=== PATIENT | female | born 1970 | race Hispanic/Latino ===

== ENCOUNTER 2017-08-17 12:16 | Emergency (ER) | payer OTHER ==
[~2017-08-17] VITALS: Ht 152.4 cm; Wt 136.1 kg
[~2017-08-17 12:16] MED LIST: LISINOPRIL20 MG PO; MEDROXYPROGESTE10 MG PO; NAPROXEN375 M1 PO
--- NOTE | 2017-08-17 13:09 | Diagnostic Imaging Report ---
Exam: Head CT without contrast History: Weakness on left side. Evaluate for CVA Comparison studies: None Technique: Axial images were obtained from the skull base to the vertex. Coronal and sagittal images reconstructed from the axial data. Intravenous contrast: None Findings: Scalp: No abnormalities. Bones: No fractures, blastic or lytic lesions. Brain sulci: Appropriate for age. Ventricles: Normal in size and configuration. No hydrocephalus. Extra-axial spaces: No masses, no fluid collection. Parenchyma: No abnormal densities. No masses, acute hemorrhage, or acute or chronic cortical vascular insults. Sellar/suprasellar region: Partially CSF filled sella, a nonspecific finding which may be of no clinical significance if in the absence of clinical symptoms to suggest idiopathic intracranial hypertension or abnormalities referrable to the hypothalamic-pituitary axis. Craniocervical junction: Patent foramen magnum. No Chiari one malformation. IMPRESSION: 1. No acute abnormalities. 2. Specifically, no mass, acute hemorrhage or acute cortical vascular insults. Brain MRI may further evaluate if there remains persistent concern for acute ischemia. Signed by: Dr. Justice Vines M.D. on 08/17/2017 1:06 PM
[2017-08-17 13:42] LABS: BASOPHILS % 0.2 % (0.0-1.0); EOSINOPHILS # (AUTO) 0.2 (0.0-0.4); EOSINOPHILS % 1.9 % (0.0-6.0); HEMATOCRIT 41.6 % (34.2-44.1); HEMOGLOBIN 14.1 g/dL (12.0-16.0); LYMPHOCYTES # (AUTO) 3.4 (1.0-3.2); LYMPHOCYTES % 40.5 % (18.0-39.1); MEAN CORPUSCULAR HEMOGLOBIN 29.4 pg (28-32); MEAN CORPUSCULAR HGB CONC 33.9 g/dL (31-35); MEAN CORPUSCULAR VOLUME 86.8 fL (81-99); MONOCYTES # (AUTO) 0.4 (0.2-0.8); MONOCYTES % 5.2 % (4.4-11.3); NEUTROPHILS # (AUTO) 4.4 (2.1-6.9); PLATELET COUNT 289 x10e3/uL (140-360); RED BLOOD COUNT 4.79 x10e6/uL (3.6-5.1); RED CELL DISTRIBUTION WIDTH 13.1 % (11.7-14.4)
[2017-08-17 13:51] LABS: INR 0.82; PROTHROMBIN TIME 11.7 seconds (11.9-14.5)
[2017-08-17 13:52] LABS: PARTIAL THROMBOPLASTIN TIME 26.9 seconds (23.8-35.5)
--- NOTE | 2017-08-17 13:57 | Diagnostic Imaging Report ---
PROCEDURE: A single AP view of the chest. COMPARISON: None. INDICATIONS: CHEST PAIN FINDINGS: Lines/tubes: None. Lungs: The lungs are moderately inflated and clear. There is no evidence of pneumonia or pulmonary edema. Pleura: There is no pleural effusion or pneumothorax. Heart and mediastinum: The heart and the mediastinum are unremarkable. Bones: No acute bony abnormality. IMPRESSION: No acute cardiopulmonary disease. Dictated by: Deandre Dockery M.D. on 08/17/2017 at 14:06 Electronically approved by: Deandre Dockery M.D. on 08/17/2017 at 14:06
[2017-08-17 13:59] LABS: ALANINE AMINOTRANSFERASE 37 IU/L (0-55); ALBUMIN 3.9 g/dL (3.5-5.0); ALBUMIN/GLOBULIN RATIO 0.9 (0.8-2.0); ALKALINE PHOSPHATASE 111 IU/L (40-150); BLOOD UREA NITROGEN 12 mg/dL (7-26); BUN/CREATININE RATIO 17 (6-25); CALCIUM 9.8 mg/dL (8.4-10.2); CARBON DIOXIDE 22 mmol/L (22-29); CHLORIDE 108 mmol/L (98-107); CREATINE KINASE 64 IU/L (29-168); EST GLOMERULAR FILTRATION RATE > 60 ML/MIN (60-); GLUCOSE 151 mg/dL (74-118); SODIUM 140 mmol/L (136-145)
[2017-08-17 15:37] VITALS: BP 149/87
[2017-08-17 16:07] LABS: BILIRUBIN,URINE NEGATIVE (NEGATIVE); COLOR,URINE YELLOW (YELLOW); KETONES,URINE NEGATIVE (NEGATIVE); LEUKOCYTE ESTERASE ,URINE NEGATIVE (NEGATIVE); NITRITE,URINE NEGATIVE (NEGATIVE); PROTEIN,URINE DIPSTICK NEGATIVE (NEGATIVE); URINE UROBILINOGEN 0.2 mg/dL (0.2 - 1)
[2017-08-17 16:16] LABS: CLARITY,URINE CLEAR (CLEAR)
[2017-08-17 16:24] LABS: BACTERIA,URINE MODERATE /HPF; EPITHELIAL CELLS,URINE FEW /LPF; RBC,URINE 0-5 /HPF (0-5); WBC,URINE (MAN) 0-5 /HPF (0-5)
== END 2017-08-17 16:02 | disposition home or self-care (01) ==
LOC: ER 12:16
DX: R20.9 Unspecified disturbances of skin sensation (principal); Z86.73 Personal history of transient ischemic attack (TIA), and cerebral infarction without residual deficits
CPT/HCPCS: 36415; 70450; 71045; 80053; 81001; 82550; 82553; 84484; 85025; 85610; 85730; 87086; 99284

== ENCOUNTER 2019-03-28 11:03 | Inpatient (IN) | payer OTHER ==
[~2019-03-28] VITALS: Ht 149.9 cm; Wt 116.6 kg
--- OUTSIDE RECORDS SUMMARY | 2019-03-28 11:06 | XMS REPORT ---
[facility] Address Unknown Phone Unavailable Care Team Providers Care Gluing Machine Operator Electronic Name Role Phone Eneida SHARP Unavailable Unavailable Payers Payer Name Policy Type Policy Number Effective Date Expiration Date Problems This patient has no known problems. Allergies, Adverse Reactions, Alerts Allergy Name Allergy Type Status Severity Reaction(s) Onset Date Inactive Date Treating Clinician Comments clindamycin DA Active SV 2018-12-13 00:00:00 levofloxacin DA Active SV 2018-12-13 00:00:00 clindamycin DA Active SV 2017-11-29 00:00:00 levofloxacin DA Active SV 2017-11-29 00:00:00 Medications This patient has no known medications. Results Test Description Test Time Test Comments Text Results Atomic Results Result Comments GLUBED 2018-12-15 17:34:00 GLUBED (test code=GLUBED) 182 mg/dL 74-106 Performed by certified railroad operator at [facility] [id number] 11:54:00* Test Item Value Reference Range Comments GLUBED (test code=GLUBED) 364 mg/dL 74-106 Performed by certified railroad operator at [facility] [id number] 07:40:00* Test Item Value Reference Range Comments GLUBED (test code=GLUBED) 273 mg/dL 74-106 Performed by certified railroad operator at [facility] [id number] 04:05:00* Test Item Value Reference Range Comments GLUBED (test code=GLUBED) 253 mg/dL 74-106 Performed by certified railroad operator at [facility] [id number] 17:36:00* Test Item Value Reference Range Comments TROPONIN-I (test code=TROPI) <0.015 ng/mL 0-0.045 [id number] 16:44:00* Test Item Value Reference Range Comments GLUBED (test code=GLUBED) 228 mg/dL 74-106 Performed by certified railroad operator at [facility] - XR ABDOMEN AP 1 [id number] 11:49:00 FAX: Nathalie Tomas MD [phone] [place]: St: ADM FAX: Lara White MD [phone] Name: DILMA BARNARD [facility] : 1970 Age/S: 48/F [address] [facility] Unit #: [id number] Loc: V.3075 [place] [address] Phys: Lara Casiano MD Acct: [id number] Dis Date: Status: ADM IN PHONE #: [phone] Exam Date: 12/14/2018 1143 FAX #: [phone] Reason: KIDNEY STONE EXAMS: CPT CODE: [id number] XR ABDOMEN AP 1 V 17277 HISTORY: Kidney stone. COMPARISON: CT scan from . No bowel obstruction. Severe constipation. Calyceal st one in the left lower pole seen on the CT scan is not visible. No other pa thologic calcifications. Phleboliths in the left hemipelvis. IMPRESSION: No pathologic calcifications visible. Severe co nstipation. No bowel obstruction. at 1478 Reported and sign ed by: Km Delgado M.D. CC: Nathalie Antony MD; Lara Ramos MD Technologist: RT YVONNE(R) Trnscrd Date/Time/By: 12/14/2018 (4233) : By: t.[email or web address].TH4 Orig Print D/T: S: 12/14/2018 (8202) PAGE 1 Signed Report [id number] 11:37:00* Test Item Value Reference Range Comments GLUBED (test code=GLUBED) 269 mg/dL 74-106 Performed by certified railroad operator at [facility] [id number] 07:48:00* Test Item Value Reference Range Comments GLUBED (test code=GLUBED) 252 mg/dL 74-106 Performed by certified railroad operator at [facility] [id number] 07:42:00* Test Item Value Reference Range Comments AMYLASE (test code=MARYLU) 46 Unit/L 25-115 [id number] 07:42:00* Test Item Value Reference Range Comments LIPASE (test code=LIP) 218 U/L 73.0-393.0 BASIC METABOLIC [id number] 06:30:00* Test Item Value Reference Range Comments SODIUM (test code=NA) 139 mmol/L 136-145 POTASSIUM (test code=K) 3.9 mmol/L 3.5-5.1 CHLORIDE (test code=CL) 109.0 mmol/L 98-107 CARBON DIOXIDE (test code=CO2) 22.0 mmol/L 21-32 ANION GAP (test code=GAP) 11.9 10-20 GLUCOSE (test code=GLU) 272 mg/dL 74-106 BLOOD UREA NITROGEN (test code=BUN) 9 mg/dL 7-18 GLOMERULAR FILTRATION RATE (test code=GFR) > 60 mL/min >=60 Estimated GFR by using Modified MDRD formula.Chronic kidney disease is defined as either kidney damageor GFR <60 mL/min/1.73 m2 for >3 months. CREATININE (test code=CREAT) 0.40 mg/dL 0.55-1.02 Note change in reference range due to change in reagent. BUN/CREATININE RATIO (test code=BUN/CREA) 22.5 10-20 CALCIUM (test code=CA) 10.1 mg/dL 8.5-10.1 CBC W/AUTO [id number] 06:11:00* Test Item Value Reference Range Comments WHITE BLOOD CELL (test code=WBC) 7.3 K/mm3 4.5-12.5 RED BLOOD CELL (test code=RBC) 4.50 mill/mm3 3.7-5.2 HEMOGLOBIN (test code=HGB) 13.5 gram/dL 11.5-15.5 RESULT VERIFIED BY REPEAT ANALYSIS HEMATOCRIT (test code=HCT) 39.7 % 36.0-46.0 MEAN CELL VOLUME (test code=MCV) 88.2 fL 80-98 MEAN CELL HGB (test code=MCH) 30.0 picogram 27.0-33.0 MEAN CELL HGB CONCETRATION (test code=MCHC) 34.0 gram/dL 33.0-36.0 RED CELL DISTRIBUTION WIDTH (test code=RDW) 13.1 % 11.6-16.2 RED CELL DISTRIBUTION WIDTH SD (test code=RDW-SD) 42.3 fL 37.0-51.0 PLATELET COUNT (test code=PLT) 250 K/mm3 150-450 MEAN PLATELET VOLUME (test code=MPV) 10.7 fL 6.7-11.0 NEUTROPHIL % (test code=NT%) 57.5 % 39.0-69.0 IMMATURE GRANULOCYTE % (test code=IG%) 0.3 % 0.0-5.0 LYMPHOCYTE % (test code=LY%) 34.2 % 25.0-55.0 MONOCYTE % (test code=MO%) 5.8 % 0.0-10.0 EOSINOPHIL % (test code=EO%) 1.9 % 0.0-5.0 BASOPHIL % (test code=BA%) 0.3 % 0.0-1.0 NUCLEATED RBC % (test code=NRBC%) 0.0 % 0-0 NEUTROPHIL # (test code=NT#) 4.18 K/mm3 1.8-7.7 IMMATURE GRANULOCYTE # (test code=IG#) 0.02 x10 3/uL 0-0.03 LYMPHOCYTE # (test code=LY#) 2.48 K/mm3 1.0-5.0 MONOCYTE # (test code=MO#) 0.42 K/mm3 0-0.8 EOSINOPHIL # (test code=EO#) 0.14 K/mm3 0.0-0.5 BASOPHIL # (test code=BA#) 0.02 K/mm3 0.0-0.2 NUCLEATED RBC # (test code=NRBC#) 0.00 K/mm3 0.0-0.1 BASIC METABOLIC [id number] 06:10:00* Test Item Value Reference Range Comments SODIUM (test code=NA) 139 mmol/L 136-145 POTASSIUM (test code=K) 3.9 mmol/L 3.5-5.1 CHLORIDE (test code=CL) 109.0 mmol/L 98-107 CARBON DIOXIDE (test code=CO2) mmol/L 21-32 ANION GAP (test code=GAP) 10-20 GLUCOSE (test code=GLU) mg/dL 74-106 BLOOD UREA NITROGEN (test code=BUN) mg/dL 7-18 GLOMERULAR FILTRATION RATE (test code=GFR) mL/min >=60 CREATININE (test code=CREAT) mg/dL 0.55-1.02 BUN/CREATININE RATIO (test code=BUN/CREA) 10-20 CALCIUM (test code=CA) mg/dL 8.5-10.1 [id number] 00:08:00* Test Item Value Reference Range Comments TROPONIN-I (test code=TROPI) <0.015 ng/mL 0-0.045 COMMENTS TO INJECTION MOLD TOOLING TECHNICIAN: COLLECT 3 HOURS AFTER PREVIOUS [id number] 21:48:00* Test Item Value Reference Range Comments TROPONIN-I (test code=TROPI) <0.015 ng/mL 0-0.045 COMMENTS TO INJECTION MOLD TOOLING TECHNICIAN: COLLECT 3 HOURS AFTER PREVIOUS [id number] 21:09:00* Test Item Value Reference Range Comments GLUBED (test code=GLUBED) 299 mg/dL 74-106 Performed by certified railroad operator at [facility] - CTA [id number] 15:14:00 Name: DILMA BARNARD [facility] : 1970 Age/S: 48 / F [address] [facility] Unit #: [id number] Loc: [place] [address] Phys: Hermann River DO Acct: [id number] Dis Date: Status: ADM IN PHONE #: [phone] Exam Date: 12/13/2018 1432 FAX #: [phone] Reason: chest pain/left sided numbness EXAMS: CPT CODE: [id number] CTA CHEST 09578 REASON FOR EXAM: chest pain/left sided numbness EXAM ORDER DATE: 12/13/2018 2:00 PM Ordering Av: Hermann River DO PROCEDURE: - CTA CHEST FINDINGS: CT images of the chest were obtained with IV contrast using PE protocol. Reconstructed sagittal and coronal images including 3D reconstructions of the chest were provided for interpretation. Dose reduction techniques were applied. Intravenous contrast: 100cc of Omnipaque 370. The heart size is within normal limits.. No evidence of pericardial effusion The thoracic aorta is unremarkable. No evidence of dissection or aneurysmal dilatation. No filling defect seen within the main or lobar pulmonary arteries to suggest pulmonary embolus No evidence of mediastinal or hilar adenopathy Platelike atelectasis in the right base No evidence of pleural effusion IMPRESSION: No acute findings in the chest. at 1514 Reported and signed by: Edinson Kasper M.D. CC: Nathalie Antony MD; Hermann River DO Technologist:Herman TANNER(R)(CT) CTDI: DLP: Trnscb Date/Time: 12/13/2018 (1514) [email or web address].VTL Orig Print D/T: S: 12/13/2018 (1404) PAGE 1 Signed Report TROPONIN-I 2018-12-13 13:52:00* Test Item Value Reference Range Comments TROPONIN-I (test code=TROPI) <0.015 ng/mL 0-0.045 PROTHROMBIN [id number] 13:36:00* Test Item Value Reference Range Comments PROTHROMBIN TIME PATIENT (test code=PTP) 10.2 seconds 9.0-14.0 INTERNATIONAL NORMAL RATIO (test code=INR) 0.9 0.8-1.2 The therapeutic range for oral anticoagulant therapy formost indications is an international normalized ratio (INR)of between 2.0 and 3.0. The recommended therapeutic INRrange for various clinical situations is listed below: Clinical Situation INR range Pulmonary e mbolism treatment (2.0-3.0)Venous thrombosis treatmentVenous thrombosis prophylaxis (high risk surgery)Prevention of systemic embolism from: Acute myocardial infarction Valvular heart disease Atrial fibrillation Mechanical prosthetic heart valves (2.5-3.5) IS PATIENT ON ANTICOAGULANTS? NTHROMBOPLASTIN TIME [id number] 13:36:00* Test Item Value Reference Range Comments THROMBOPLASTIN TIME PARTIAL (test code=PTT) 31.4 seconds 25.0-36.5 IS PATIENT ON ANTICOAGULANTS? N- CT HEAD/BRAIN W/O [id number] 13:29:00 Name: DILMA BARNARD [facility] : 1970 Age/S: 48 / F [address] [facility] Unit #: [id number] Loc: [place] [address] Phys: Hermann River DO Acct: [id number] Dis Date: Status: REG ER PHONE #: Exam Date: 12/13/2018 1309 FAX #: Reason: left sided numbness EXAMS: CPT CODE: [id number] CT HEAD/BRAIN W/O CONT 66321 HISTORY: Left-sided numbn ess. COMPARISON: CT head from February 25, 2017. CT br ain without contrast: Automated exposure control. Note: Study is l imited due to beam hardening and motion artifact. No acute intracr anial bleeds or extra-axial collections and there is no acute territorial vascular infarction. The taylor-white matter differentiation is pre served. The sulci, gyri, ventricles and subarachnoid spaces and the basila r cisterns are normal for patient's age. No herniation or hydrocephalus or midline shift is noted. Fourth ventricle remains midline. P ortions of the visualized paranasal sinuses are unremarkable. No o bvious bony calvarial defect is noted. IMPRESSION: No acute intracranial bleeds or extra-axial collections. No acute territorial vascular infarction. No herniation or hyd rocephalus or midline shift. at 1329 Reported and signed by: Km Delgado M.D. CC: Nathalie Antony MD; Hermann River DO Technologist:Macrina Narvaez,RT(R),CT CTDI: DLP: Trnscb Date/Time: 12/13/2018 (7039) [email or web address] Orig Print D/T: S: 12/13/2018 (0037) PAGE 1 Signed Report TROPONIN I [id number] 13:15:00* Test Item Value Reference Range Comments TROPONIN I RAPID (test code=TROPIRAP) 0.00 ng/mL <0.08 Please Note New Reference Range 0.00-0.079 ng/mL - Negative>or=0.08 ng/mL - Positive The use of serial sampling and testing protocol is arecommended practice.An elevated troponin level alone is often not sufficient fordiagnosis of myocardial infarction. Troponin results obtained by different assays may vary.Evaluation of the extent of myocardial damage based onincrease of troponin would be valid only if similarmethodology is used. [id number] 13:02:00* Test Item Value Reference Range Comments GLUBED (test code=GLUBED) 272 mg/dL 74-106 Performed by certified railroad operator at [facility] URINALYSIS [id number] 10:20:00* Test Item Value Reference Range Comments UA COLOR (test code=COLU) Light-Yellow YELLOW UA APPEARANCE (test code=APPU) CLEAR CLEAR UA GLUCOSE DIPSTICK (test code=DGLUU) >1000 (4+) mg/dL NEGATIVE UA BILIRUBIN DIPSTICK (test code=BILU) NEGATIVE mg/dL NEGATIVE UA KETONE DIPSTICK (test code=KETU) 20 (1+) mg/dL NEGATIVE UA SPECIFIC GRAVITY (test code=SGU) 1.045 1.001-1.035 UA BLOOD DIPSTICK (test code=BEULAH) Negative mg/dL NEGATIVE UA PH DIPSTICK (test code=LEONIE) 5.5 5.0-8.0 UA PROTEIN DIPSTICK (test code=PROU) NEGATIVE mg/dL NEGATIVE UA UROBILINIOGEN DIPSTICK (test code=URO) Normal mg/dL NEGATIVE UA NITRITE DIPSTICK (test code=ARTHUR) NEGATIVE NEGATIVE UA LEUKOCYTE ESTERASE W REFLEX (test code=LEUUR) NEGATIVE Jose/uL NEGATIVE UA WBC (test code=WBCU) 0-5 per HPF 0-5 UA EPITHELIAL CELLS (test code=EPIU) MANY per HPF FEW UA BACTERIA (test code=BACU) FEW #/HPF NONE UA YEAST (test code=YEASTU) MANY #/HPF NONE Urine Source? Clean CatchBASIC METABOLIC [id number] 10:11:00* Test Item Value Reference Range Comments SODIUM (test code=NA) 137 mmol/L 136-145 POTASSIUM (test code=K) 3.9 mmol/L 3.5-5.1 CHLORIDE (test code=CL) 106.0 mmol/L 98-107 CARBON DIOXIDE (test code=CO2) 25.0 mmol/L 21-32 ANION GAP (test code=GAP) 9.9 10-20 GLUCOSE (test code=GLU) 376 mg/dL 74-106 BLOOD UREA NITROGEN (test code=BUN) 12 mg/dL 7-18 GLOMERULAR FILTRATION RATE (test code=GFR) > 60 mL/min >=60 Estimated GFR by using Modified MDRD formula.Chronic kidney disease is defined as either kidney damageor GFR <60 mL/min/1.73 m2 for >3 months. CREATININE (test code=CREAT) 0.70 mg/dL 0.55-1.02 Note change in reference range due to change in reagent. BUN/CREATININE RATIO (test code=BUN/CREA) 17.1 10-20 CALCIUM (test code=CA) 10.0 mg/dL 8.5-10.1 [id number] 10:11:00* Test Item Value Reference Range Comments TROPONIN-I (test code=TROPI) <0.015 ng/mL 0-0.045 HEPATIC FUNCTION [id number] 10:11:00* Test Item Value Reference Range Comments TOTAL PROTEIN (test code=PROT) 8.1 gram/dL 6.4-8.2 ALBUMIN (test code=ALB) 4.1 g/dL 3.4-5.0 GLOBULIN (test code=GLOB) 4.0 gram/dL 2.7-4.2 ALBUMIN/GLOBULIN RATIO (test code=A/G) 1.0 0.75-1.50 BILIRUBIN TOTAL (test code=BILT) 0.50 mg/dL 0.0-1.0 BILIRUBIN DIRECT (test code=BILD) 0.15 mg/dL 0.0-0.20 SGOT/AST (test code=AST) 13 IUnit/L 15-37 SGPT/ALT (test code=ALT) 34 IUnit/L 12-78 ALKALINE PHOSPHATASE TOTAL (test code=ALKP) 167 IUnit/L 45-117 Note change in reference range due to change in reagent. BASIC METABOLIC [id number] 10:05:00* Test Item Value Reference Range Comments SODIUM (test code=NA) 137 mmol/L 136-145 POTASSIUM (test code=K) 3.9 mmol/L 3.5-5.1 CHLORIDE (test code=CL) 106.0 mmol/L 98-107 CARBON DIOXIDE (test code=CO2) mmol/L 21-32 ANION GAP (test code=GAP) 10-20 GLUCOSE (test code=GLU) mg/dL 74-106 BLOOD UREA NITROGEN (test code=BUN) mg/dL 7-18 GLOMERULAR FILTRATION RATE (test code=GFR) mL/min >=60 CREATININE (test code=CREAT) mg/dL 0.55-1.02 BUN/CREATININE RATIO (test code=BUN/CREA) 10-20 CALCIUM (test code=CA) 10.0 mg/dL 8.5-10.1 [id number] 10:05:00* Test Item Value Reference Range Comments TROPONIN-I (test code=TROPI) ng/mL 0-0.045 HCG SERUM [id number] 09:56:00* Test Item Value Reference Range Comments HCG SERUM QUAL (test code=HCGQL) NEGATIVE NEGATIVE This HCGQL test is NOT applicable for MALE patients.Check with nurse about probable order error.If Tumor Marker Test needed, nurse should order test "HCGTU"(Test #[id number]) - CT ABD PELVIS W/O [id number] 09:55:00 Name: DILMA BARNARD [facility] : 1970 Age/S: 48 / F [place] [facility] Unit #: [id number] Loc: [place] [address] Phys: Hermann River DO Acct: [id number] Dis Date: Status: REG ER PHONE #: [phone] Exam Date: 12/13/201834 FAX #: [phone] Reason: Right flank pain EXAMS: CPT CODE: [id number] CT ABD PELVIS W/O CONT 01051 HISTORY: Right flank pain. COMPARISON: CT scan from May 14, 2019. CT abdomen and pelvis: Stone protocol. Automated exposure control. CT of abdomen: The lung bases are clear. The hepatic parenchyma is unremarkable on this noncontrast exam. Diffuse fatty infiltration with areas of fatty sparing. Liver measured 19.3 cm in length. Patient is post cholecystectomy. Unremarkable spleen. The stomach distended incompletely but it is normal in appearance. Noncontrast pancreas and adre nals are normal. Kidneys are free from hydroureteronephrosis. Punc maldonado 1 to 2 mm calyceal stone in the left lower pole. No pat hologic adenopathy. Unopacified abdominal and pelvic vasculature is unrema rkable. No bowel obstruction or colitis or diverticulitis or enter itis. Constipation. CT PELVIS: Appendix is nor mal. Pelvic bowel loops are unobstructed. Diverticulosis of the sigmoid co marietta without diverticulitis. Patient is post hysterectomy. The urin reul bladder demonstrates small amount of air. Correlate if patient has bee n instrumented. Phleboliths. No pelvic pathologic adenopathy. No free flui d or free air. The subcutaneous tissues and musculature demo nstrating appearance. No lytic or blastic lesions are noted within the bon y skeleton. DJD. IMPRESSION: No hydroureterone phrosis with punctate 1 to 2 mm left lower pole calyceal stone. Urinary bladder demonstrates small amount of air. Correlate if patient has been instrumented. Urinary bladder is incompletely distended. PAGE 1 Signed Report (CONTINUED) Name: Liat BARNARD [facility] : 1970 Age /S: 48 / F [place] [facility] Unit #: [id number] Loc: [place] [address] Phys: Hermann River DO Acct: [id number] Dis Date: Status: REG ER PHONE #: [phone] Exam Date: 12/13/2018933 FAX #: [phone] Reason: Right flank pain EXAMS: CPT CODE: [id number] CT ABD PELVIS W/O CONT 77080 <Continued> Normal appendix without bowel obstruction or colitis or diverticulitis or enteritis. Constipation. at 0955 Reported and signed by: Km Delgado M.D. CC: Nathalie Antony MD; Hermann River DO Technologist:Herman Narvaez RT(R)(CT) CTDI: DLP: Trnscb Date/Time: 12/13/2018 (954) t.[email or web address].TH4 Orig Print D/T: S: 12/13/2018 (28) PAGE 2 Signed Report CBC W/O [id number] 09:53:00* Test Item Value Reference Range Comments WHITE BLOOD CELL (test code=WBC) 7.2 K/mm3 4.5-12.5 RED BLOOD CELL (test code=RBC) 5.28 mill/mm3 3.7-5.2 HEMOGLOBIN (test code=HGB) 16.1 gram/dL 11.5-15.5 HEMATOCRIT (test code=HCT) 47.0 % 36.0-46.0 MEAN CELL VOLUME (test code=MCV) 89.0 fL 80-98 MEAN CELL HGB (test code=MCH) 30.5 picogram 27.0-33.0 MEAN CELL HGB CONCETRATION (test code=MCHC) 34.3 gram/dL 33.0-36.0 RED CELL DISTRIBUTION WIDTH (test code=RDW) 12.7 % 11.6-16.2 PLATELET COUNT (test code=PLT) 261 K/mm3 150-450 MEAN PLATELET VOLUME (test code=MPV) 10.4 fL 6.7-11.0 - XR CHEST 1 [id number] 08:44:00 FAX: Nathalie Tomas MD [phone] [place]: B St: REG FAX: Peter Ramirez NP [phone] Name: DILMA BARNARD [facility] : 1970 Age/S: 48/F [address] [facility] Unit #: [id number] Loc: [place] [address] Phys: Peter Ramirez [employer] Acct: [id number] Dis Date: Status: REG ER PHONE #: [phone] Exam Date: 12/13/2018834 FAX #: [phone] Reason: CHEST PAIN EXAMS: CPT CODE: [id number] XR CHEST 1 V 79856 HISTORY: Chest pain. COMPARISON: February 25, 2017. No acute infiltrates, effusion or congestion is noted. Suboptimal inspiration. Dependent changes. Cardiomegaly. IMPRESSION: No acute infiltrates, effusion or congestion. at 0844 Reported and signed by: Km Delgado M.D. CC: Nathalie Antony MD; Peter Ramirez NP Technologist: Viola Tucker([place]) Trnscrd Date/Time/By: 12/13/2018 (0844) : By: AnnabelTH4 Orig Print D/T: S: 12/13/2018 (0847) PAGE 1 Signed Report [id number] 08:16:00* Test Item Value Reference Range Comments GLUBED (test code=GLUBED) 393 mg/dL 74-106 Performed by certified railroad operator at [facility] CHEST SINGLE (PORTABLE) [place] [address] Patient Name: DILMA BARNARD MR #: [id number] : 1970 Age/Sex: 47/F Req #: [id number] Adm Physician: Ordered by: DORA SHARP MD Report #: [id number] Location: ER Room/Bed: Procedure: [id number] DX/CHEST SINGLE (PORTABLE) E xam Date: 08/17/17 Exam Time: 1330 REPORT STATU S: Signed PROCEDURE: A single AP view of the chest. COMPARISON: None. INDICATIONS: CHEST PAIN FINDINGS: Lines/tubes: None. Lungs: The lungs are moderately inflated and clear. There is no evidence of pneumonia or pulmonary edema. Pleura: There is no pleural effusion or pn eumothorax. Heart and mediastinum: The heart and the mediastinum are unre markable. Bones: No acute bony abnormality. IMPRESSION: No acute cardiopulmonary disease. Dictated by: Deandre Jiang M.D. on 08/17/19 at 14:06 Electronically approved by: Deandre Jiang M.D. on 08/17/2017 at 14:06 Dictated By: DEANDRE JIANG MD 1406 Transcribed By: ELISABETH on 08/17/17 1406 COPY TO: DORA SHARP MD CT BRAIN WO [place] [address] Patient Name: DILMA BARNARD MR #: [id number] : 1970 Age/Sex: 47/F Req #: [id number] Adm Physician: Ordered by: DORA SHARP MD Report #: [id number] Location: ER Room/Bed: Procedure: [id number] CT/CT BRAIN WO Exam Date: Exam Time: 1220 REPORT STATUS: Signed Exam: Head CT without contrast History: Weakness on left side. Evaluate for CVA Comparison studies: None Technique: Axial images were obtained fro m the skull base to the vertex. Coronal and sagittal images reconstructed from the axial data. Intravenous contrast: None Findings: Scalp: No abno rmalities. Bones: No fractures, blastic or lytic lesions. Brain sulci: Ap propriate for age. Ventricles: Normal in size and configuration. No hydrocepha pamella. Extra-axial spaces: No masses, no fluid collection. Parenchyma: No abnormal densities. No masses, acute hemorrhage, or acute or chronic corti nicole vascular insults. Sellar/suprasellar region: Partially CSF filled sella , a nonspecific finding which may be of no clinical significance if in the abs ence of clinical symptoms to suggest idiopathic intracranial hypertension or a bnormalities referrable to the hypothalamic-pituitary axis. Craniocervica l junction: Patent foramen magnum. No Chiari one malformation. IMPRESSIO N: 1. No acute abnormalities. 2. Specifically, no mass, acute hemorrha ge or acute cortical vascular insults. Brain MRI may further evaluate if th ere remains persistent concern for acute ischemia. Signed by: Dr. Janny castro M.D. on 08/17/2017 1:06 PM Dictated By: JANNY WOO MD Electro nically Signed By: JANNY WOO MD on 08/17/17 1308 Transcribed By: MONSERRAT on 08/17/17 1306 COPY TO: DORA SHARP MD
[2019-03-28 11:59] LABS: BASOPHILS % 0.2 % (0.0-1.0); EOSINOPHILS # (AUTO) 0.2 (0.0-0.4); EOSINOPHILS % 1.7 % (0.0-6.0); HEMATOCRIT 39.4 % (34.2-44.1); HEMOGLOBIN 13.9 g/dL (12.0-16.0); LYMPHOCYTES # (AUTO) 2.7 (1.0-3.2); LYMPHOCYTES % 25.2 % (18.0-39.1); MEAN CORPUSCULAR HEMOGLOBIN 31.4 pg (28-32); MEAN CORPUSCULAR HGB CONC 35.3 g/dL (31-35); MEAN CORPUSCULAR VOLUME 89.1 fL (81-99); MONOCYTES # (AUTO) 0.6 (0.2-0.8); MONOCYTES % 5.3 % (4.4-11.3); NEUTROPHILS # (AUTO) 7.2 (2.1-6.9); NEUTROPHILS % 67.3 % (38.7-80.0); PLATELET COUNT 301 x10e3/uL (140-360); RED BLOOD COUNT 4.42 x10e6/uL (3.6-5.1); RED CELL DISTRIBUTION WIDTH 12.5 % (11.7-14.4)
[2019-03-28 12:09] LABS: INR 0.86; PROTHROMBIN TIME 12.2 seconds (11.9-14.5)
[2019-03-28 12:10] LABS: PARTIAL THROMBOPLASTIN TIME 28.2 seconds (23.8-35.5)
--- NOTE | 2019-03-28 12:16 | NUR ---
DR. MCBRIDE AT BEDSIDE UPDATING PT ON PLAN OF CARE, INTENT OF ADMISSION AND TREATMENT WITH tPA, ER MD EXPLAINING RISKS, BENEFITS, AND ALTERNATIVE TREATMENTS AT THIS TIME, PT VERBALZIES UNDERSTANDING AND STATES THAT SHE WISHES TO CONTINUE TREATMENT.
--- NOTE | 2019-03-28 12:18 | NUR ---
PT PROVIDED WITH BEDSIDE COMMODE, TOLERATING WELL, WILL CONTINUE TO MONITOR.
[2019-03-28 12:19] LABS: ALANINE AMINOTRANSFERASE 19 IU/L (0-55); ALBUMIN 3.5 g/dL (3.5-5.0); ALBUMIN/GLOBULIN RATIO 0.9 (0.8-2.0); ALKALINE PHOSPHATASE 118 IU/L (40-150); ANION GAP 11.1 mmol/L (8-16); BLOOD UREA NITROGEN 14 mg/dL (7-26); BUN/CREATININE RATIO 17 (6-25); CALCIUM 10.7 mg/dL (8.4-10.2); CARBON DIOXIDE 25 mmol/L (22-29); CHLORIDE 106 mmol/L (98-107); CREATININE, SERUM 0.81 mg/dL (0.57-1.11); EST GLOMERULAR FILTRATION RATE > 60 ML/MIN (60-); GLUCOSE 153 mg/dL (74-118); POTASSIUM 4.1 mmol/L (3.5-5.1); SODIUM 138 mmol/L (136-145)
[2019-03-28] MEDS ORDERED: SODIUM CHLORIDE FLUSH 10 ML SYR INJ PRN (12:45)
[2019-03-28] MEDS ORDERED: ONDANSETRON HCL INJ 2MG/ML 2ML 2 MG/ML VIAL IV PRN (12:45)
--- NOTE | 2019-03-28 12:46 | Diagnostic Imaging Report ---
Examination: Cervical and Intracranial CT Angiogram with Contrast History: Acute left hemiparesis. Comparison studies: None Technique: Axial images were obtained from the thoracic inlet. Coronal and sagittal images reconstructed from the axial data. Intravenous contrast: 100 mL of Isovue 300. Degree of stenosis at the carotid bulbs, if present, will be calculated using NASCET criteria where the smallest diameter at the location of stenosis is compared to the diameter of the more distal non-diseased vessel lumen. Computer generated maximum intensity projection and 3D images of the cervical and intracranial anterior and posterior circulations were performed on a separate workstation. Dose modulation, iterative reconstruction, and/or weight based adjustment of the mA/kV was utilized to reduce the radiation dose to as low as reasonably achievable. Findings: CTA neck: Aortic arch and major vessels: Patent. Common carotid arteries: Patent Cervical carotid bifurcations: Right: Patent. Left :Patent. Internal carotid arteries: Right: Patent. Cervical loop. Left: Patent. Cervical loop. Vertebral arteries: Patent. CTA head: Internal carotid arteries: Patent. Anterior cerebral arteries: Patent A1 and A2 segments. Middle cerebral arteries: Patent M1 and M2 segments. Posterior cerebral arteries: Patent P1 and P2 segments. Vertebro-basilar system: Patent. Anatomical variants: Anterior communicating artery :Present Posterior communicating arteries: Present and patent bilaterally. Vertebral arteries: Codominant. IMPRESSION: No cervical or intracranial arterial stenosis or occlusion or vascular malformation. Signed by: Dr. Lauren Ernst M.D. on 03/28/2019 12:43 PM
--- NOTE | 2019-03-28 12:52 | Diagnostic Imaging Report ---
Chest, 1 view, 03/28/2019. History: CVA. Comparison: None available. Findings: The cardiomediastinal silhouette and pulmonary vasculature are within normal limits for a portable exam. There is no focal consolidation or pleural effusion. There are no acute osseous or soft tissue abnormalities. Impression: No acute cardiopulmonary abnormality. Signed by: David Howard on 03/28/2019 12:49 PM
--- NOTE | 2019-03-28 12:55 | NUR ---
PT AAOX4, OBTAINED SIGNATURE FOR INFORMED CONSENT FOR PROCEDURE, SIGNED WITNESS DR. MCBRIDE PREVIOUSLY EXPLAINED RISKS, BENEFITS, AND ALTERNATIVE TREATMENTS. COMPLETED FORM PLACED ON CHART.
[2019-03-28] MEDS ORDERED: ALTEPLASE 50 MG/VIAL (29 MILLION IU) IV ONE ×2 (13:00→13:15)
--- NOTE | 2019-03-28 13:06 | NUR ---
Speech Therapy NOTE: ER physician wishes to have a BSE on CVA pt, pt awaiting tPA. Recommend BSE after tPA administered. Handoff to JACOB Thompson
[2019-03-28] MEDS: SODIUM CHLORIDE 0.9% 1000ML 1,000 ML IV SCH (13:10)
--- NOTE | 2019-03-28 13:10 | NUR ---
PT C/O INTERMITTENT CHEST PRESSURE, STATES "I GUESS I AM ANXIOUS", FURTHER STATES "IT'S NOT PAIN THOUGH, JUST FEELS HEAVY"; BREATHING EVEN/UNLABORED, PT @100% RA, NON-DIAPHORETIC, INFORMED DR. MCBRIDE.
--- NOTE | 2019-03-28 13:34 | NUR ---
PT REMAINS AAOX4, PERRLA, VITALS WNL, BREATHING EVEN/UNLABORED; BED LOW/LOCKED, SIDE RAILS UP, CALL LIGHT IN EASY REACH, WILL CONTINUE TO MONITOR.
--- NOTE | 2019-03-28 14:04 | NUR ---
DR. MCBRIDE AT BEDSIDE FOR RE-EVAL, PT REPORTING IMPROVEMENT IN MOVEMENT OF LUE, NOTED IMPROVEMENT IN SPEECH; PT REMAINS AAOX4, PT NOW HAS FAMILY AT BEDSIDE.
[2019-03-28] MEDS ORDERED: IOPAMIDOL 370 MG/ML 200 ML INFUS..BTL INJ ONE (14:25)
[2019-03-28] MEDS ORDERED: SODIUM CHLORIDE 0.9% 100 ML 100 ML ONE (14:25)
--- NOTE | 2019-03-28 14:52 | NUR ---
PT PRESSED CALL LIGHT, CURRENTLY MOANING/GROAING C/O EXCRUCIATING PAIN TO LT MID BACK, PT SCREAMS WITH LIGHT PALPATION; AT BEDSIDE FOR ASSESSMENT, PENDING ORDERS TO MEDICATE AT THIS TIME.
[2019-03-28] MEDS ORDERED: MORPHINE SULFATE 5 MG/ML VIAL IV ONE (15:00)
[2019-03-28] MEDS ORDERED: MORPHINE SULFATE INJ 4 MG/ML INJ 1ML IV ONE (15:00)
--- NOTE | 2019-03-28 15:41 | NUR ---
DR. YEUNG AT BEDSIDE FOR PATIENT ASSESSMENT AT THIS TIME, PENDING FURTHER ORDERS.
[2019-03-28 19:30] VITALS: BP_SYST 119; BP_SYST 123; BP_DIAS 54; BP_DIAS 59
[2019-03-28 20:00] VITALS: BP 138/72
--- NOTE | 2019-03-28 21:10 | NUR ---
Dr. Liat Antony notified of pt's left flank pain after receiving TPA in ER. Stat CT abdomen/pelvis ordered. New order for pain meds given. See eMAR
[2019-03-28] MEDS: MORPHINE SULFATE INJ 4 MG/ML INJ 1ML IV PRN (21:50)
[2019-03-28] MEDS ORDERED: MORPHINE SULFATE 2 MG/ML SYR 1ML ONE (21:51)
--- NOTE | 2019-03-28 22:02 | Diagnostic Imaging Report ---
EXAMINATION: CT of the abdomen and pelvis without contrast. TECHNIQUE: Spiral CT images of the abdomen and pelvis were performed from the lung bases to the lesser trochanters. No intravenous contrast was given as patient already received intravenous contrast for CTA brain performed same day. Coronal and sagittal reformatted images were obtained. COMPARISON: None. CLINICAL HISTORY:Left flank pain DISCUSSION: ABSENCE OF INTRAVENOUS CONTRAST DECREASES SENSITIVITY FOR DETECTION OF FOCAL LESIONS AND VASCULAR PATHOLOGY. ABDOMEN/PELVIS: LOWER THORAX: Unremarkable. HEPATOBILIARY: Diffuse hepatic steatosis. No focal lesions. No intra or extrahepatic biliary ductal dilation. GALLBLADDER: Cholecystectomy clips. SPLEEN: No splenomegaly. PANCREAS: No focal masses or ductal dilatation. ADRENALS: No adrenal nodules. KIDNEYS/URETERS: Contrast is noted in the collecting systems, renal pelves, portions of the ureters and bladder, which obscure potential calculi. No definite renal calculi. No hydronephrosis or obstruction. No contour abnormalities. PELVIC ORGANS/BLADDER: Bladder is full of contrast. No focal filling defect is identified. Uterus is absent. No adnexal masses. PERITONEUM/RETROPERITONEUM: No free air or fluid. LYMPH NODES: No intra-abdominal,retroperitoneal, pelvic or inguinal lymphadenopathy. VESSELS: Grossly unremarkable for noncontrast exam. GI TRACT: No bowel dilation or evidence of obstruction. Descending and sigmoid colon diverticulosis, without diverticulitis. Appendix is identified and normal in caliber. BONES AND SOFT TISSUES: No aggressive medications. Degenerative disc changes in the lumbosacral spine. Small fat-containing abdominal hernia. Soft tissues are otherwise unremarkable. IMPRESSION: 1. Limited exam, as contrast from prior CTA brain is noted in the renal collecting systems, renal pelves, portions of the ureters and bladder, which obscure potential calculi. No definite renal calculi within these limitations, hydronephrosis or obstruction. 2. Diffuse hepatic steatosis. 3. Descending and sigmoid colon diverticulosis, without diverticulitis. Signed by: Dr. Les Anne M.D. on 03/28/2019 9:59 PM
--- NOTE | 2019-03-28 22:10 | NUR ---
Pt complaining of tingling and numbness on left side of face and arm. Pt unable to smile at this time or speak in full sentences when asked. Pt unable to lift left leg. Dr. Ang PATEL notified, thinks pt may be faking symptoms. No new orders noted, will continue to monitor.
--- NOTE | 2019-03-28 22:45 | NUR ---
Pt states she is feeling better, no more tingling or numbness. pt speaking in full sentences, symmetrical facial movements noted at this time.
[2019-03-29] VITALS (14 sets, daily range): BP systolic 108–157; BP diastolic 66–93
[2019-03-29] MEDS: SODIUM CHLORIDE 0.9% 1000ML 1,000 ML IV SCH ×3 (04:42→14:01)
[2019-03-29 05:33] LABS: BASOPHILS % 0.5 % (0.0-1.0); EOSINOPHILS # (AUTO) 0.2 (0.0-0.4); EOSINOPHILS % 2.5 % (0.0-6.0); HEMATOCRIT 37.9 % (34.2-44.1); HEMOGLOBIN 12.7 g/dL (12.0-16.0); LYMPHOCYTES # (AUTO) 2.3 (1.0-3.2); LYMPHOCYTES % 30.1 % (18.0-39.1); MEAN CORPUSCULAR HGB CONC 33.5 g/dL (31-35); MEAN CORPUSCULAR VOLUME 89.6 fL (81-99); MONOCYTES # (AUTO) 0.5 (0.2-0.8); MONOCYTES % 6.8 % (4.4-11.3); NEUTROPHILS # (AUTO) 4.5 (2.1-6.9); NEUTROPHILS % 59.7 % (38.7-80.0); PLATELET COUNT 282 x10e3/uL (140-360); RED BLOOD COUNT 4.23 x10e6/uL (3.6-5.1); RED CELL DISTRIBUTION WIDTH 12.8 % (11.7-14.4)
[2019-03-29 06:09] LABS: ALANINE AMINOTRANSFERASE 26 IU/L (0-55); ALBUMIN 3.3 g/dL (3.5-5.0); ALKALINE PHOSPHATASE 106 IU/L (40-150); ANION GAP 11.8 mmol/L (8-16); BLOOD UREA NITROGEN 16 mg/dL (7-26); BUN/CREATININE RATIO 24 (6-25); CALCIUM 9.7 mg/dL (8.4-10.2); CARBON DIOXIDE 22 mmol/L (22-29); CHLORIDE 111 mmol/L (98-107); CREATININE, SERUM 0.66 mg/dL (0.57-1.11); EST GLOMERULAR FILTRATION RATE > 60 ML/MIN (60-); GLUCOSE 123 mg/dL (74-118); POTASSIUM 3.8 mmol/L (3.5-5.1); SODIUM 141 mmol/L (136-145)
[2019-03-29] MEDS ORDERED: METFORMIN HCL500 MG PO (06:11)
--- NOTE | 2019-03-29 07:43 | Diagnostic Imaging Report ---
EXAMINATION: CHEST SINGLE (PORTABLE) INDICATION: SOB. COMPARISON: Chest radiograph 03/28/2019. FINDINGS: TUBES and LINES: None. LUNGS: Low lung volumes. Mild central vascular congestion. Patchy bibasilar opacity, likely atelectasis. There is no evidence of lobar pneumonia or pulmonary edema. PLEURA: No pleural effusion or pneumothorax. HEART AND MEDIASTINUM: The cardiomediastinal silhouette is unremarkable. BONES AND SOFT TISSUES: No acute osseous abnormality. UPPER ABDOMEN: No free air under the diaphragm. IMPRESSION: No acute radiographic abnormality. Signed by: Dr. Brent Sanchez MD on 03/29/2019 7:40 AM
[2019-03-29 08:45] LABS: CHOL/HDL RATIO 3.3 (3.0-3.6)
[2019-03-29] MEDS ORDERED: LORAZEPAM INJ 2 MG/ML VIAL IV ONE (10:00)
--- NOTE | 2019-03-29 11:30 | NUR ---
patient transferred to room 209 Addendum: 03/29/19 at 1234 by Cortney Castanon RN entered in error
--- NOTE | 2019-03-29 14:09 | Diagnostic Imaging Report ---
EXAMINATION: MRI of the brain without contrast. HISTORY: Left-sided weakness, paresthesias, facial droop since one hour before arrival Acute cerebrovascular accident COMPARISON: Head CT 03/27/2019 TECHNIQUE: Sagittal T2; axial DWI, T2, FLAIR, T1-IR, T2 gradient echo; coronal FLAIR. IMAGE QUALITY: Adequate. FINDINGS: Parenchyma: 1. No abnormal signal intensity 2. No mass, hemorrhage, acute or chronic infarcts. Skull: Unremarkable. Vessels: Expected flow voids present in the major arteries and dural sinuses. Extra-axial spaces: No abnormal signal intensity or mass effect. Brain volume: Within normal limits for age. Ventricles: No hydrocephalus or displacement. Foramen magnum: Unremarkable. Sella: Enlarged sella, partially empty, mostly CSF filled. Paranasal / mastoid sinuses: No significant inflammatory disease. IMPRESSION: No intracranial abnormalities, particularly no acute infarcts. Signed by: Dr. Arcelia Wilson M.D. on 03/29/2019 2:06 PM
--- NOTE | 2019-03-29 22:06 | Consultation ---
DATE OF CONSULTATION: 03/28/2019 Neurology Consult Note. HISTORY OF PRESENT ILLNESS: Ms. Decker is a 49-year-old right-hand dominant woman with multiple vascular risk factors, admitted to [facility] on March 28, 2019, with a possible stroke. Sometime between 10:45 and 11:00 on the day of admission, while in her primary care physician's office (Dr. Ashley Antony), the patient experienced a sudden onset of weakness and numbness over the left hemibody (face, arm, and leg). Other symptoms endorsed by the patient include dysarthria, poor balance, dizziness, and mild confusion. Ms. Decker endorsed a headache as well, but reports it was mild. Concerned that the patient was experiencing a stroke, Ms. Decker was instructed to proceed to the emergency center at [facility] for further evaluation of her symptoms. Upon arrival in the emergency center, the patient was afebrile with a blood pressure of 179/88 mmHg and a pulse of 77 beats per minute. Documentation of the patient's neurological examination is as follows: Mild dysarthria, left facial droop, left facial numbness, weakness of the left arm and left leg, diminished sensation to light touch over the left arm. An NIH Stroke Scale score of 6 was given. While in the emergency center, a CT of the brain without contrast was performed. This study did not reveal evidence of recent large territorial ischemia or hemorrhage. The patient's laboratory data (a comprehensive metabolic panel, CBC with differential and platelets, and coagulation profile) were within normal limits. Ms. Decker was determined to be an appropriate candidate for treatment with intravenous thrombolysis. She received a loading dose of alteplase 9 mg intravenously once at 1321. This was immediately followed by infusion of intravenous alteplase 81 mg over 1 hour. Upon completion of the infusion of intravenous tPA, the patient's above described symptoms were significantly improved. Other symptoms endorsed by the patient during this encounter include abdominal pain, diarrhea, and low back pain (chronic). Ms. Decker has experienced similar symptoms previously. In December 2018, the patient was hospitalized at [facility] and diagnosed with a transient ischemic attack. Since December 2018, the patient has not taken an anti-platelet or anticoagulant medication on a regular basis. She is intermittently compliant with all other medications and treatments. REVIEW OF SYSTEMS: Abdominal pain, diarrhea, confusion, dysarthria, left facial weakness and numbness, weakness and numbness over the left arm and left leg, impairment of balance and gait, low back pain (chronic), and dizziness. Otherwise, a 12-point review of systems is negative. PAST MEDICAL HISTORY: Hypertension, hyperlipidemia, diabetes mellitus type 2, prior transient ischemic attack, obstructive sleep apnea-not on CPAP. PAST SURGICAL HISTORY: Cholecystectomy, total hysterectomy, D and C x2, left hand surgery following trauma. PAST HOSPITALIZATIONS: Surgeries/procedures as listed, transient ischemic attack, childbirth. FAMILY MEDICAL HISTORY: The patient's father is . His medical history included diabetes mellitus and stroke. Ms. Decker's mother is . Her medical history included hypertension, diabetes mellitus, and congestive heart failure. The patient has eight siblings, four sisters and four brothers, all of whom are living. All siblings have diabetes mellitus. The patient's youngest sister has congestive heart failure. Ms. Decker has four children, one son and three daughters, all of whom are alive and healthy. SOCIAL HISTORY: Ms. Decker is . She works as an "manager media relations." The patient does report occasional tobacco use with last use being two days ago. Ms. Decker does not report alcohol or recreational drug use. HOME MEDICATIONS: Lisinopril 20 mg by mouth daily, metformin 500 mg by mouth twice daily. HOSPITAL MEDICATIONS: Morphine, Zofran. ALLERGIES: CLINDAMYCIN. NO KNOWN FOOD ALLERGIES. NO KNOWN ALLERGIES TO LATEX. NO KNOWN ALLERGIES TO IODINE OR OTHER CONTRAST MATERIALS. PHYSICAL EXAMINATION: VITAL SIGNS: Height 60 inches, weight 300 pounds, BMI 58.6 kg/m2, blood pressure 139/68 mmHg, pulse 66 beats per minute, respiratory rate 17 breaths per minute, and oxygen saturation 98% on room air. GENERAL: The patient is awake and alert, does not appear distressed. Morbidly obese. HEENT: Normocephalic, atraumatic. Pupils are equal, round, and reactive to light. Moist mucous membranes. NECK: Supple. No appreciable thyromegaly. No appreciable carotid bruits. CARDIOVASCULAR: S1, S2, regular rate and rhythm. No murmurs, rubs, or gallops. RESPIRATORY: Clear to auscultation bilaterally. No wheezes, rhonchi, or rales. EXTREMITIES: The skin is warm and dry. No clubbing, cyanosis, or edema. The posterior tibial and dorsalis pedis pulses are 1+ and symmetric. SKIN: No rashes or lesions. NEUROLOGIC: Memory/Attention: The patient is awake and alert, oriented to person, place, time, and situation. Cranial Nerves: Cranial nerve I - not tested. Cranial nerve II, III, IV, and - pupils are equal and round, reactive briskly to light (from 4 mm to 2 mm). Extraocular movements intact. No nystagmus. Cranial nerve V - sensation to light touch and pinprick is diminished in the left V1 through V3 distributions. Strength in the temporalis and masseter muscles is within normal limits. Cranial nerve VII - the face is symmetric as are all facial movements. Strength is within normal limits. Cranial nerve VIII - hearing is intact to finger rub bilaterally. Cranial nerve 9, 10- the soft palate elevates equally and symmetrically. Cranial nerve XI - normal strength of the bilateral sternocleidomastoid and trapezius muscles. Cranial nerve XII-the tongue protrudes midline and moves symmetrically from [id number]. Strength: Bulk is normal. There is effort dependent weakness in multiple muscles examined in both arms, left greater than right. Strength is grossly 4+/5 in the flexors and 4/5 in the extensors of both arms. Strength is 5/5 in the right leg. Ms. Decker states she is unable to move or lift the left leg. Positive Verdugo's on the left. Tone is normal in both arms and both legs. DTRs: Deep tendon reflexes are 1+ and symmetric at the triceps and biceps. Deep tendon reflexes are trace and symmetric at the brachioradialis. Deep tendon reflexes are absent and symmetric at the patellas and Achilles. Plantar responses are flexor bilaterally. Sensation: Sensation is diminished to light touch and pinprick in the left arm and left leg. Cerebellar: Unable to assess secondary to pain and weakness (per the patient). Gait: Deferred. Speech: Spontaneous speech is normal without appreciable dysarthria or aphasia. Repetition is intact. Involuntary movements: None. Pronator Drift: As per motor exam. LABORATORY DATA: A comprehensive metabolic panel is significant for an elevated serum glucose of 153, calcium of 10.7, and globulin of 3.9. Troponin I is 0.006. CBC with differential and platelets reveals a white blood cell count of 10.66 with a normal differential. The hemoglobin and hematocrit are 13.9 and 39.4, respectively. The platelet count is 301. PT 12.2, INR 0.86, PTT 28.2. DIAGNOSTIC STUDIES: Electrocardiogram 03/28/2019: Normal sinus rhythm at [address] of the abdomen and pelvis 03/28/2019: 1. Limited exam as contrast from prior CTA brain is noted in the renal collecting systems, renal pelvis, portions of the ureters and bladder which obscure potential calculi. No definite renal calculi within these limitations, hydronephrosis, or obstruction. 2. Diffuse hepatic steatosis. 3. Descending and sigmoid colon diverticulosis without diverticulitis. 4. CT of the brain without contrast on my review, there is no evidence of recent or remote large territorial ischemia, hemorrhage, mass, or mass effect. Cerebral volumes appear appropriate for age. There are no findings compatible with chronic small vessel ischemic disease. 5. CTA of the head and neck 03/28/2019: There are no hemodynamically significant stenoses noted in either the intra or extracranial vasculature. 6. Chest x-ray 03/28/2019: No acute cardiopulmonary abnormality. ASSESSMENT AND PLAN: Ms. Decker is a 49-year-old right-hand dominant woman with multiple vascular risk factors, not compliant with medications and treatments, admitted to [facility] on March 28, 2019, with left hemiparesis and hemihypesthesia suspicious for an ischemic stroke. On neurological examination, the patient is noted to have deficits of strength and sensation over the left hemibody. However, the weakness over the left hemibody is thought to be effort dependent. The sensory findings are purely subjective. The patient's laboratory data and other diagnostic studies have been reviewed and are documented above. Ms. Decker will be admitted to [facility] to undergo a complete stroke evaluation. However, given the frequent and extreme fluctuations in the patient's neurological examination, I am doubtful of the diagnosis of transient ischemic attack or stroke. RECOMMENDATIONS: Are as follows: 1. A lipid panel and hemoglobin A1c will be ordered. 2. An MRI of the brain without contrast will be ordered. 3. An echocardiogram will be ordered. 4. No antiplatelet or anticoagulant medication for 24 hours status post tPA (approximately 1421 on March 29, 2019). 5. Allow permissive hypertension for 24-48 hours status post stroke. The patient's goal systolic blood pressure is 170-200 mmHg. The patient's goal diastolic blood pressure is 70-110 mmHg. Monitor vital signs per unit protocol. 6. The patient's goal total cholesterol is less than 200 with LDL of less than 70. Follow up the results of the lipid panel. 7. The patient's goal hemoglobin A1c is less than 7.0. Follow up the results of the hemoglobin A1c. Tight glycemic control is recommended while the patient is hospitalized. 8. Speech and Physical Therapy consultations will be ordered. 9. GI prophylaxis with Pepcid 20 mg by mouth twice daily with meals. DVT prophylaxis with LAURA hose and SCDs for 24 hours status post administration of intravenous tPA. 10. Smoking cessation counseling was provided to the patient. 11. Defer treatment of the remaining medical comorbidities to the primary and other services following the patient. Thank you for this consultation. I will continue to follow the patient while she remains in the hospital. TIME SPENT: 70 minutes. Shyann Fry MD CP/JIGAR /[id number] LARRY
[2019-03-30 00:15] VITALS: BP 141/65
[2019-03-30] MEDS: MORPHINE SULFATE INJ 4 MG/ML INJ 1ML IV PRN ×2 (00:23→05:49)
[2019-03-30 04:00] VITALS: BP 117/58
[2019-03-30 08:00] VITALS: BP 117/58
[2019-03-30] MEDS ORDERED: METFORMIN HCL 500 MG TAB PO SCH (08:00)
[2019-03-30 08:40] VITALS: BP 137/75
[2019-03-30] MEDS ORDERED: LISINOPRIL 20 MG TAB PO SCH (09:00)
[2019-03-30] MEDS ORDERED: ACETAMINOPHEN 325 MG TAB PO PRN ×2 (11:45→12:15)
[2019-03-30 12:49] VITALS: BP 128/63
--- NOTE | 2019-03-30 15:37 | NUR ---
Received order for outpatient therapy. Pt signed choice for [facility] outpatient rehab. Facesheet and order faxed to [phone].
--- NOTE | 2019-03-30 15:53 | Discharge Summary ---
ADMITTING DIAGNOSES: 1. Acute cerebral infarction with left-sided weakness/numbness. 2. Hypertensive heart disease. 3. Type 2 diabetes. 4. Extreme obesity, BMI 51. DISCHARGE DIAGNOSES: 1. Left leg numbness, likely secondary to lumbar radiculopathy. 2. Type 2 diabetes with neuropathy. 3. Hypertensive heart disease. 4. Extreme obesity, BMI 51. 5. Status post tPA infusion. 6. Fatty liver disease. HOSPITAL COURSE: This is a 49-year-old woman, who was initially admitted to [facility] with working diagnosis of acute cerebrovascular accident with left-sided weakness/numbness. In the emergency room, the patient did receive tPA, which she tolerated quite well. The patient underwent a head and neck CT angiogram, which did not reveal any evidence of acute intracranial abnormality. No cervical or intracranial artery stenosis or occlusion or vascular malformation was appreciated. The patient subsequently underwent MRI of the brain, which also was completely normal. The patient was seen by a neurologist, namely Dr. Shyann Fry, who confirmed that patient did not have a stroke. The patient underwent echocardiogram during this hospitalization, which revealed left ventricular ejection fraction of 55% to 60%. The patient was found to have an LDL cholesterol of 67 mg/dL during this hospital stay. The patient's triglycerides were 128 mg/dL. The patient's hemoglobin A1c was 7.9%. Her hospitalization was unremarkable. Her condition on discharge was stable. The patient did note that she has history of sleep apnea, but she has never used a CPAP machine. The patient states she suffers with chronic insomnia, which she feels may contribute to some of her neurologic issues particularly numbness in her legs. CONDITION ON DISCHARGE: Stable. DISCHARGE MEDICATIONS: 1. Lisinopril 20 mg daily. 2. Metformin 500 mg b.i.d. FOLLOWUP INSTRUCTIONS: The patient was instructed to follow up with Dr. Antony in the next 10 to 14 days. Also, outpatient physical therapy was arranged for this patient in regard to her left leg weakness. The patient was also given the phone number for a local sleep specialist namely, Dr. Atiya Ruiz, so the patient can undergo overnight sleep study that will assess the severity of her sleep apnea. MD ALAN Hawthorne/JIGAR /[id number] cc: MD Atiya Ravi MD
[2019-03-30 16:15] VITALS: BP 139/63
--- NOTE | 2019-03-30 17:40 | NUR ---
PATIENT DISCHARGED HOME VERBALIZED UNDERSTANDING OF DISCHARGE INSTRUCTIONS. INSTRUCTED TO FOLLOW UP WITH DR. Ashley RIVERO AND TO CALL FOR APPOINTMENT. ALSO PATIENT IS TO FOLLOW UP WITH OUTPATIENT PHYSICAL THERAPY.
== END 2019-03-30 17:40 | disposition home or self-care (01) | DRG 552 ==
LOC: ER 11:03 → ERHOLD 12:42 → ICU 19:40 → MED/SURG 03-30 00:06
DX: M54.16 Radiculopathy, lumbar region (principal); Z68.43 Body mass index [BMI] 50.0-59.9, adult; E11.40 Type 2 diabetes mellitus with diabetic neuropathy, unspecified; E11.65 Type 2 diabetes mellitus with hyperglycemia; R29.706 NIHSS score 6; I11.9 Hypertensive heart disease without heart failure; E78.5 Hyperlipidemia, unspecified; E66.01 Morbid (severe) obesity due to excess calories; K76.0 Fatty (change of) liver, not elsewhere classified; G47.00 Insomnia, unspecified; G47.33 Obstructive sleep apnea (adult) (pediatric); E83.52 Hypercalcemia; R20.0 Anesthesia of skin; F17.200 Nicotine dependence, unspecified, uncomplicated; Z79.84 Long term (current) use of oral hypoglycemic drugs; Z86.73 Personal history of transient ischemic attack (TIA), and cerebral infarction without residual deficits; Z88.1 Allergy status to other antibiotic agents
CPT/HCPCS: 36415; 70496; 70498; 70551; 71045; 74176; 80053; 80061; 82948; 83036; 84484; 85025; 85610; 85730; 86850; 86900; 93005; 93306; 99284; J2060; J2270; J2405; J7030; Q9967

== ENCOUNTER → 2019-05-28 | Outpatient (CLI) | payer OTHER ==
[~2019-05-28] MED LIST changes: +METFORMIN HCL500 MG PO
--- NOTE | 2019-05-28 16:43 | Diagnostic Imaging Report ---
Right shoulder, 2 views Clinical indication: Right shoulder pain Comparison: None Findings: 2 views of the right shoulder were obtained. There is no radiographic evidence of acute fracture or dislocation. Glenohumeral and acromioclavicular joints are intact. The visualized portions of the right lung are clear. Impression: Normal right shoulder radiographs. Signed by: Russel Rausch MD on 05/28/2019 4:40 PM
== END ==
LOC: RAD 15:07
DX: M25.511 Pain in right shoulder (principal)

== ENCOUNTER 2019-09-19 22:33 | Emergency (ER) | payer OTHER ==
[~2019-09-19] VITALS: Ht 149.9 cm; Wt 116.6 kg
[2019-09-19] MEDS ORDERED: KETOROLAC TROMETHAMINE 30 MG/ML VIAL IV STA (23:01)
[2019-09-19] MEDS ORDERED: SODIUM CHLORIDE 0.9% 1000ML 1,000 ML IV STA (23:01)
[2019-09-19 23:37] LABS: BASOPHILS % 0.4 % (0.0-1.0); EOSINOPHILS # (AUTO) 0.2 (0.0-0.4); EOSINOPHILS % 2.1 % (0.0-6.0); HEMATOCRIT 41.6 % (34.2-44.1); HEMOGLOBIN 13.9 g/dL (12.0-16.0); LYMPHOCYTES # (AUTO) 3.4 (1.0-3.2); LYMPHOCYTES % 37.1 % (18.0-39.1); MEAN CORPUSCULAR HGB CONC 33.4 g/dL (31-35); MEAN CORPUSCULAR VOLUME 89.7 fL (81-99); MONOCYTES # (AUTO) 0.5 (0.2-0.8); MONOCYTES % 5.6 % (4.4-11.3); NEUTROPHILS % 54.5 % (38.7-80.0); PLATELET COUNT 271 x10e3/uL (140-360); RED BLOOD COUNT 4.64 x10e6/uL (3.6-5.1); RED CELL DISTRIBUTION WIDTH 13.2 % (11.7-14.4)
[2019-09-19 23:42] LABS: BILIRUBIN,URINE NEGATIVE (NEGATIVE); CLARITY,URINE CLEAR (CLEAR); COLOR,URINE YELLOW (YELLOW); KETONES,URINE NEGATIVE (NEGATIVE); LEUKOCYTE ESTERASE ,URINE NEGATIVE (NEGATIVE); NITRITE,URINE NEGATIVE (NEGATIVE); PROTEIN,URINE DIPSTICK NEGATIVE (NEGATIVE); URINE UROBILINOGEN 0.2 mg/dL (0.2 - 1)
[2019-09-19 23:53] LABS: ALANINE AMINOTRANSFERASE 31 IU/L (0-55); ALBUMIN 3.8 g/dL (3.5-5.0); ALKALINE PHOSPHATASE 121 IU/L (40-150); ANION GAP 11.5 mmol/L (8-16); BLOOD UREA NITROGEN 12 mg/dL (7-26); BUN/CREATININE RATIO 11 (6-25); CARBON DIOXIDE 27 mmol/L (22-29); CHLORIDE 103 mmol/L (98-107); CREATININE, SERUM 1.09 mg/dL (0.57-1.11); EST GLOMERULAR FILTRATION RATE 54 ML/MIN (60-); POTASSIUM 4.5 mmol/L (3.5-5.1); SODIUM 137 mmol/L (136-145)
[2019-09-19 23:59] LABS: GLUCOSE 481 mg/dL (74-118)
[2019-09-20 00:08] LABS: BACTERIA,URINE RARE /HPF; EPITHELIAL CELLS,URINE FEW /LPF; RBC,URINE 0-5 /HPF (0-5); YEAST,URINE FEW
--- NOTE | 2019-09-20 01:00 | Diagnostic Imaging Report ---
Exam: KUB - 3 views Clinical History: Right flank pain. Comparison: CT Abdomen/Pelvis 03/28/19. Findings: Nonobstructive bowel gas pattern. No evidence of free intraperitoneal air. No evidence of abnormal calcification. No acute bony abnormality. Mild degenerative changes in bilateral hips. Status post cholecystectomy. Impression: No acute radiographic abnormality. No evidence of nephrolithiasis. Signed by: Dr. Brent Sanchez MD on 09/20/2019 12:57 AM
[2019-09-20] MEDS ORDERED: INSULIN REGULAR, HUMAN 100 UNIT/1 ML 3ML VIAL IV ONE (01:45)
[2019-09-20 02:12] VITALS: BP 151/95
== END 2019-09-20 02:29 | disposition home or self-care (01) ==
LOC: ER 22:33
DX: M54.5 Low back pain (principal); S33.5XXA Sprain of ligaments of lumbar spine, initial encounter; I10 Essential (primary) hypertension; E11.9 Type 2 diabetes mellitus without complications; E78.5 Hyperlipidemia, unspecified; Z86.73 Personal history of transient ischemic attack (TIA), and cerebral infarction without residual deficits
CPT/HCPCS: 36415; 74018; 80053; 81001; 82948; 85025; 99284; J1885; J7030

== ENCOUNTER → 2019-10-03 | Outpatient (CLI) | payer OTHER ==
--- NOTE | 2019-10-03 14:29 | Diagnostic Imaging Report ---
Lumbar spine series, 5 views. History: Low back pain. Comparison: None available. Discussion: The paraspinal soft tissues are unremarkable. The alignment of the lumbar spine is normal. There is no evidence of fracture, spondylolisthesis, or spondylolysis. The intervertebral disc spaces are within normal limits. Small scattered osteophytes and posterior facet sclerosis are noted. IMPRESSION: Mild degenerative changes of the lumbar spine. Signed by: David Howard on 10/03/2019 2:26 PM
== END ==
LOC: RAD 12:40
DX: M54.5 Low back pain (principal)
CPT/HCPCS: 72110

== ENCOUNTER 2020-01-23 21:00 | Observation (INO) | payer OTHER ==
[~2020-01-23] VITALS: Ht 149.9 cm; Wt 116.6 kg
--- NOTE | 2020-01-23 21:06 | Emergency Department Note ---
History of Present Illnes History of Present Illness Chief Complaint: Neurological History of Present Illness This is a 49 year old female presents to the ED for left sided tingl ing. Medical Assistant Float Required: No Onset (how long ago): minute(s) (45) Location: left sided Radiation: Reports extremity Severity: mild Onset quality: sudden Duration (how long): hour(s) (1) Timing of current episode: constant Progression: unchanged Chronicity: recurrent Context: Denies recent illness, Denies recent surgery, Denies recent immobilization, Denies recent travel, Denies trauma/injury, Denies new medications, Denies hx of DVT/PE, Denies non-compliance w/ medications, Denies other Relieving factors: none Exacerbating factors: none Associated symptoms: Denies denies other symptoms, Denies confusion, Denies chest pain, Denies cough, Denies diaphoresis, Denies fever/chills, Denies headaches, Denies loss of appetite, Denies malaise, Denies nausea/vomiting, Denies rash, Denies seizure, Denies shortness of breath, Denies syncope, Denies weakness, Denies other Treatments prior to arrival: none Previous service: tests performed, re-evaluation Past Medical/Family History Physician Review I have reviewed the patient's past medical and family history. Any updates have been documented here. Past Medical History Recent Fever: No Clinical Suspicion of Infectio: No New/Unexplained Change in Ment: No Past Medical History: Hypertension, Diabetes, TIA, Hyperlipedemia Past Surgical History: Cholecysctectomy, Hysterectomy Other Surgery: HAND Social History Smoking Cessation: Never Smoker Alcohol Use: None Any Illegal Drug Use: No Other Last Tetanus: UNK Review of Systems Review of Systems Constitutional: Reports no symptoms EENTM: Reports no symptoms Cardiovascular: Reports no symptoms Respiratory: Reports no symptoms Gastrointestinal: Reports no symptoms Genitourinary: Reports no symptoms Musculoskeletal: Reports no symptoms Integumentary: Reports no symptoms Neurological: Reports paresthesia, Reports tingling Psychological: Reports no symptoms Endocrine: Reports no symptoms Hematological/Lymphatic: Reports no symptoms Physical Exam Related Data Allergies: Coded Allergies: levofloxacin (Verified Allergy, Intermediate, ITCHING, 01/24/20) clindamycin (Verified Allergy, Unknown, 03/28/19) Triage Vital Signs Vital Signs Date Time Temp Pulse Resp B/P (MAP) Pulse Ox O2 Delivery O2 Flow Rate FiO2 01/23/20 21:03 97.7 85 17 142/86 99 Room Air Vital signs reviewed: Yes Physical Exam CONSTITUTIONAL HENT EYES NECK PULMONARY CARDIOVASCULAR GASTROINTESTINAL GENITOURINARY SKIN MUSCULOSKELETAL NEUROLOGICAL PSYCHOLOGICAL Results Laboratory Lab results reviewed: Yes Laboratory comments Laboratory Tests Test 01/24/20 00:38 01/23/20 22:10 01/23/20 22:05 Urine Test Negative (NEGATIVE) White Blood Count 9.78 x10e3/uL (4.8-10.8) Red Blood Count 4.57 x10e6/uL (3.6-5.1) Hemoglobin 13.8 g/dL (12.0-16.0) Hematocrit 40.6 % (34.2-44.1) Mean Corpuscular Volume 88.8 fL (81-99) Mean Corpuscular Hemoglobin 30.2 pg (28-32) Mean Corpuscular Hemoglobin Concent 34.0 g/dL (31-35) Red Cell Distribution Width 12.8 % (11.7-14.4) Platelet Count 291 x10e3/uL (140-360) Neutrophils (%) (Auto) 59.9 % (38.7-80.0) Lymphocytes (%) (Auto) 31.3 % (18.0-39.1) Monocytes (%) (Auto) 6.1 % (4.4-11.3) Eosinophils (%) (Auto) 2.1 % (0.0-6.0) Basophils (%) (Auto) 0.3 % (0.0-1.0) Neutrophils # (Auto) 5.9 (2.1-6.9) Lymphocytes # (Auto) 3.1 (1.0-3.2) Monocytes # (Auto) 0.6 (0.2-0.8) Eosinophils # (Auto) 0.2 (0.0-0.4) Basophils # (Auto) 0.0 (0.0-0.1) Absolute Immature Granulocyte (auto 0.03 x10e3/uL (0-0.1) Sodium Level 137 mmol/L (136-145) Potassium Level 4.0 mmol/L (3.5-5.1) Chloride Level 106 mmol/L (98-107) Carbon Dioxide Level 24 mmol/L (22-29) Anion Gap 11.0 mmol/L (8-16) Blood Urea Nitrogen 10 mg/dL (7-26) Creatinine 0.74 mg/dL (0.57-1.11) Estimat Glomerular Filtration Rate > 60 ML/MIN (60-) BUN/Creatinine Ratio 14 (6-25) Glucose Level 260 mg/dL (74-118) Calcium Level 9.5 mg/dL (8.4-10.2) Total Bilirubin 0.4 mg/dL (0.2-1.2) Aspartate Amino Transf (AST/SGOT) 19 IU/L (5-34) Alanine Aminotransferase (ALT/SGPT) 37 IU/L (0-55) Alkaline Phosphatase 110 IU/L (40-150) Creatine Kinase 45 IU/L (29-168) Creatine Kinase MB 0.60 ng/mL (0-5.0) Troponin I 0.003 ng/mL (0-0.300) Total Protein 7.0 g/dL (6.5-8.1) Albumin 3.4 g/dL (3.5-5.0) Globulin 3.6 g/dL (2.3-3.5) Albumin/Globulin Ratio 0.9 (0.8-2.0) Imaging Imaging results reviewed: Yes Impressions [place] [address] Patient Name: DILMA BARNARD MR #: [id number] : 1970 Age/Sex: 49/F Req #: [id number] Adm Physician: Ordered by: MANOJ LEMA DO Report #: [id number] Location: ER Room/Bed: Procedure: [id number] CT/CTA BRAIN Exam Date: 01/23/20 Exam Time: 2100 REPORT STATUS: Signed EXAMINATION: CT angio of the neck and head with contrast. HISTORY:Left-sided weakness and facial numbness. COMPARISON:MRI brain from 03/29/2019, CTA head and neck from 03/28/2019. TECHNIQUE: CTA: Multidetector helical axial images were acquired through the neck and head during infusion of iodinated contrast material. Images were reviewed in multiplanar and 3-dimensional format. CT head: Multidetector axial images were obtained from the foramen magnum to the vertex without contrast. The images were reconstructed using brain and bone algorithms. Dose modulation, iterative reconstruction, and/or weight based adjustment of the mA/kV was utilized to reduce the radiation dose to as low as reasonably achievable. Contrast: 100 mL of Isovue-370 . FINDINGS: CT head: Suboptimal evaluation due to motion-related streak artifacts particularly at the level of skull base and posterior fossa. Skull/scalp: No lytic or blastic. lesions. No surgical changes. Parenchyma: No abnormal density. No acute hemorrhage, mass or acute major vascular territorial infarct. Arteries: No density suggestive of thrombosis. Dural sinuses: No abnormal density suggestive of thrombosis. Ventricles: No hydrocephalus or displacement. Extra-axial spaces: No abnormal density. Brain volume: Normal for age. Craniocervical junction: No mass, Chiari malformation, or basilar invagination. Sella: Enlarged, CSF filled partial empty sella. Paranasal/mastoid sinuses: Imaged portions unremarkable. NECK: If carotid bulb stenosis is present, stenosis is measured with respect to the distal extracranial internal carotid artery. Aortic arch and major vessels: Patent, no abnormality. Common carotid arteries: Patent, no abnormality Carotid bulb: Patent, no abnormality. Internal carotid arteries: Right: Retropharyngeal course of the cervical segment of right internal carotid artery at level C2. Otherwise patent, no abnormality. Left: Patent, no abnormality. Vertebral arteries: Patent, no abnormality. Incidental finding: Dental caries and endodontal disease of right mandibular third molar, the activity of which is to be determined clinically. Enlarged, CSF filled partial empty sella. HEAD: Internal carotid arteries: Patent, no abnormality. Bilateral A1 and A2 segments of the anterior cerebral arteries are patent without abnormality. Right M1 segment of middle cerebral artery is patent without abnormality. Mild diminutive appearance of distal M2 segment of right middle cerebral artery but patent. Left M1 and M2 segments are patent without abnormality. Vertebral arteries: Patent. Basilar artery: Patent. Posterior cerebral arteries: Patent. Anatomical variants: Anterior communicating artery :Patent Posterior communicating arteries: Patent Vertebral arteries: Codominant. IMPRESSION: CT head: Suboptimal evaluation due to motion artifacts, despite the limitation no gross acute intracranial abnormality. CTA head and neck: Mild diminutive appearance of the distal M2 segment of right middle cerebral artery may represent underlying vasculitis. Otherwise no significant cervical or intracranial vascular abnormality. Signed by: Dr. Cleopatra Cardona M.D. on 01/23/2020 10:18 PM Dictated By: CLEOPATRA CARDONA MD 17 Transcribed By: MONSERRAT on 01/23/202217 COPY TO: MANOJ LEMA DO~ Procedures 12 Lead ECG Interpretation ECG Interpretation : ECG: ECG 1 Date: Jan 23, 2020 Time: 21:07 Prior ECG tracings: reviewed Rhythm: sinus rhythm Rate: normal BPM: 85 ST segments normal: Yes Other findings: PRWP Clinical Impression: non-specific ECG Assessment & Plan Medical Decision Making MDM 49 yof presents with neuro symptoms . Diff Dx : status epilepticus, brain tumor, CVA, SAH, EDH, traumatic brain injury , hydrocephalus, meningitis, encephalitis, COVID-19 infection Assessment & Plan Final Impression: (1) TIA (transient ischemic attack) Depart Disposition: ADMITTED Home Meds Reported Medications Atorvastatin Calcium (ATORVASTATIN CALCIUM) 20 Mg Tablet, 20 MG PO HS, #30 TAB 01/24/20 Glimepiride (GLIMEPIRIDE) 2 Mg Tablet, 2 MG PO BID, TAB 01/24/20 Metformin Hcl (METFORMIN HCL) 500 Mg Tablet, 500 MG PO BID, #60 TAB 03/29/19 Lisinopril (PRINAVIL / ZESTRIL) 20 Mg Tablet, 5 MG PO DAILY 10/22/13 MANOJ LEMA DO Jan 23, 2020 21:06
[2020-01-23 22:15] LABS: BASOPHILS % 0.3 % (0.0-1.0); EOSINOPHILS # (AUTO) 0.2 (0.0-0.4); EOSINOPHILS % 2.1 % (0.0-6.0); HEMATOCRIT 40.6 % (34.2-44.1); HEMOGLOBIN 13.8 g/dL (12.0-16.0); LYMPHOCYTES # (AUTO) 3.1 (1.0-3.2); LYMPHOCYTES % 31.3 % (18.0-39.1); MEAN CORPUSCULAR HEMOGLOBIN 30.2 pg (28-32); MEAN CORPUSCULAR VOLUME 88.8 fL (81-99); MONOCYTES # (AUTO) 0.6 (0.2-0.8); MONOCYTES % 6.1 % (4.4-11.3); NEUTROPHILS # (AUTO) 5.9 (2.1-6.9); NEUTROPHILS % 59.9 % (38.7-80.0); PLATELET COUNT 291 x10e3/uL (140-360); RED BLOOD COUNT 4.57 x10e6/uL (3.6-5.1); RED CELL DISTRIBUTION WIDTH 12.8 % (11.7-14.4)
--- NOTE | 2020-01-23 22:21 | Diagnostic Imaging Report ---
EXAMINATION: CT angio of the neck and head with contrast. HISTORY:Left-sided weakness and facial numbness. COMPARISON:MRI brain from 03/29/2019, CTA head and neck from 03/28/2019. TECHNIQUE: CTA: Multidetector helical axial images were acquired through the neck and head during infusion of iodinated contrast material. Images were reviewed in multiplanar and 3-dimensional format. CT head: Multidetector axial images were obtained from the foramen magnum to the vertex without contrast. The images were reconstructed using brain and bone algorithms. Dose modulation, iterative reconstruction, and/or weight based adjustment of the mA/kV was utilized to reduce the radiation dose to as low as reasonably achievable. Contrast: 100 mL of Isovue-370 . FINDINGS: CT head: Suboptimal evaluation due to motion-related streak artifacts particularly at the level of skull base and posterior fossa. Skull/scalp: No lytic or blastic. lesions. No surgical changes. Parenchyma: No abnormal density. No acute hemorrhage, mass or acute major vascular territorial infarct. Arteries: No density suggestive of thrombosis. Dural sinuses: No abnormal density suggestive of thrombosis. Ventricles: No hydrocephalus or displacement. Extra-axial spaces: No abnormal density. Brain volume: Normal for age. Craniocervical junction: No mass, Chiari malformation, or basilar invagination. Sella: Enlarged, CSF filled partial empty sella. Paranasal/mastoid sinuses: Imaged portions unremarkable. NECK: If carotid bulb stenosis is present, stenosis is measured with respect to the distal extracranial internal carotid artery. Aortic arch and major vessels: Patent, no abnormality. Common carotid arteries: Patent, no abnormality Carotid bulb: Patent, no abnormality. Internal carotid arteries: Right: Retropharyngeal course of the cervical segment of right internal carotid artery at level C2. Otherwise patent, no abnormality. Left: Patent, no abnormality. Vertebral arteries: Patent, no abnormality. Incidental finding: Dental caries and endodontal disease of right mandibular third molar, the activity of which is to be determined clinically. Enlarged, CSF filled partial empty sella. HEAD: Internal carotid arteries: Patent, no abnormality. Bilateral A1 and A2 segments of the anterior cerebral arteries are patent without abnormality. Right M1 segment of middle cerebral artery is patent without abnormality. Mild diminutive appearance of distal M2 segment of right middle cerebral artery but patent. Left M1 and M2 segments are patent without abnormality. Vertebral arteries: Patent. Basilar artery: Patent. Posterior cerebral arteries: Patent. Anatomical variants: Anterior communicating artery :Patent Posterior communicating arteries: Patent Vertebral arteries: Codominant. IMPRESSION: CT head: Suboptimal evaluation due to motion artifacts, despite the limitation no gross acute intracranial abnormality. CTA head and neck: Mild diminutive appearance of the distal M2 segment of right middle cerebral artery may represent underlying vasculitis. Otherwise no significant cervical or intracranial vascular abnormality. Signed by: Dr. Cleopatra Barreto M.D. on 01/23/2020 10:18 PM
[2020-01-23 22:35] LABS: ALANINE AMINOTRANSFERASE 37 IU/L (0-55); ALBUMIN 3.4 g/dL (3.5-5.0); ALBUMIN/GLOBULIN RATIO 0.9 (0.8-2.0); ALKALINE PHOSPHATASE 110 IU/L (40-150); BLOOD UREA NITROGEN 10 mg/dL (7-26); BUN/CREATININE RATIO 14 (6-25); CALCIUM 9.5 mg/dL (8.4-10.2); CARBON DIOXIDE 24 mmol/L (22-29); CHLORIDE 106 mmol/L (98-107); CREATININE, SERUM 0.74 mg/dL (0.57-1.11); EST GLOMERULAR FILTRATION RATE > 60 ML/MIN (60-); GLUCOSE 260 mg/dL (74-118); SODIUM 137 mmol/L (136-145)
[2020-01-23] MEDS ORDERED: ASPIRIN 325 MG TAB PO STA (22:35)
[2020-01-23] MEDS ORDERED: ASPIRIN 81 MG CHEW TAB PO ONE (23:30)
[2020-01-24] VITALS (8 sets, daily range): BP systolic 124–143; BP diastolic 71–90
[2020-01-24] LABS: CREATINE KINASE MB 0.6 ng/mL (0-5.0)
[2020-01-24] MEDS: SODIUM CHLORIDE 0.9% 1000ML 1,000 ML IV SCH ×4 (01:09→23:38)
[2020-01-24] MEDS ORDERED: IOPAMIDOL 370 MG/ML 200 ML INFUS..BTL INJ ONE (04:14)
[2020-01-24] MEDS ORDERED: SODIUM CHLORIDE 0.9% 100 ML ONE (04:14)
--- NOTE | 2020-01-24 06:00 | NUR ---
Patient received via ER by stretcher. AAO x 4. Patient had no complaints of pain. Respirations even and non-labored. Admission history obtained. Initial physical assessment performed. IVF infusing at 125 cc/hr. Patient oriented to room, call light and plan of care. Patient instructed to call for assistance when needed. Call light within reach.
[2020-01-24] MEDS ORDERED: GLIMEPIRIDE2 MG PO (06:16)
[2020-01-24] MEDS ORDERED: ATORVASTATIN CA20 MG PO (06:16)
--- NOTE | 2020-01-24 07:00 | NUR ---
Dr. Clau Arroyo paged regarding "Routine Consult". A message was left on his voice-mail.
[2020-01-24 07:20] LABS: BASOPHILS % 0.5 % (0.0-1.0); EOSINOPHILS # (AUTO) 0.2 (0.0-0.4); EOSINOPHILS % 2.5 % (0.0-6.0); HEMATOCRIT 39.6 % (34.2-44.1); HEMOGLOBIN 13.3 g/dL (12.0-16.0); LYMPHOCYTES # (AUTO) 2.6 (1.0-3.2); LYMPHOCYTES % 32.2 % (18.0-39.1); MEAN CORPUSCULAR HEMOGLOBIN 29.8 pg (28-32); MEAN CORPUSCULAR HGB CONC 33.6 g/dL (31-35); MEAN CORPUSCULAR VOLUME 88.8 fL (81-99); MONOCYTES # (AUTO) 0.6 (0.2-0.8); MONOCYTES % 7.1 % (4.4-11.3); NEUTROPHILS # (AUTO) 4.5 (2.1-6.9); NEUTROPHILS % 57.4 % (38.7-80.0); PLATELET COUNT 240 x10e3/uL (140-360); RED BLOOD COUNT 4.46 x10e6/uL (3.6-5.1); RED CELL DISTRIBUTION WIDTH 12.8 % (11.7-14.4)
[2020-01-24 07:44] LABS: ALANINE AMINOTRANSFERASE 35 IU/L (0-55); ALBUMIN 3.3 g/dL (3.5-5.0); ALKALINE PHOSPHATASE 102 IU/L (40-150); ANION GAP 10.9 mmol/L (8-16); BLOOD UREA NITROGEN 9 mg/dL (7-26); BUN/CREATININE RATIO 13 (6-25); CALCIUM 9.1 mg/dL (8.4-10.2); CARBON DIOXIDE 23 mmol/L (22-29); CHLORIDE 106 mmol/L (98-107); CREATININE, SERUM 0.68 mg/dL (0.57-1.11); EST GLOMERULAR FILTRATION RATE > 60 ML/MIN (60-); GLUCOSE 339 mg/dL (74-118); POTASSIUM 3.9 mmol/L (3.5-5.1); SODIUM 136 mmol/L (136-145)
[2020-01-24 08:11] LABS: CREATINE KINASE MB 0.6 ng/mL (0-5.0)
[2020-01-24 09:53] LABS: CHOL/HDL RATIO 3.9 (3.0-3.6)
[2020-01-24] MEDS ORDERED: DEXTROSE 50% SYRINGE 50 ML IV PRN (10:00)
[2020-01-24 10:12] LABS: THYROID STIMULATING HORMONE 6.235 uIU/mL (0.350-4.940)
[2020-01-24] MEDS: INSULIN REGULAR, HUMAN 100 UNIT/1 ML 3ML VIAL SQ SCH ×3 (11:30→23:40)
--- NOTE | 2020-01-24 11:34 | Consultation ---
DATE OF CONSULTATION: 01/24/2020 Neurology Consultation HISTORY OF PRESENT ILLNESS: I have seen the patient for TIA. Patient has history of TIA in the past causing left hemiparesis and hemifacial numbness, comes in after developing a sudden onset of dizziness and full facial numbness followed by left facial numbness, lasted several hours and resolved spontaneously. She has history of hypertension, diabetes, and obesity and smokes occasionally. Denies taking any preventive therapies at home, but does endorse taking blood pressure medications and cholesterol medicine. She states she has had a history of miscarriages, but no blood clots in the past. At this time, she denies any headache, nausea, vomiting, chest pain, neck pain, etc. No seizure in the past. No seizures currently. FAMILY HISTORY: No family history of early strokes. SOCIAL HISTORY: As mentioned above, she does occasionally smoke. Denies alcohol or drugs. PHYSICAL EXAMINATION: VITAL SIGNS: Temperature is 97.3, heart rate is 75 and regular, blood pressure 134/71. HEENT: Shows extraocular muscles intact. Face symmetric. Tongue is midline. Speech is clear. There is no nuchal rigidity. She is morbidly obese. Strength is 5/5. There is no ataxia. ABDOMEN: Soft and nontender. Reflexes are diminished for symmetric. Strength in the bilateral extremities is 5/5. Toes are mute. Sensory is grossly intact bilaterally. ASSESSMENT AND PLAN: I am seeing Mrs. Decker for transient ischemic attack, this is at least a 2nd event that she has history of miscarriages and smoking. She has multiple risk factors despite being ill. Recommendations are hypercoagulable workup. Keep patient on aspirin 325, get a lipid panel, homocystine, B12, connective tissue panels and initiate high-dose statin or to maintain high-dose statins. Vascular imaging was performed with lot of motion artifact. With the motion artifact, I think limits it to some extent, but the CTA suggesting the vasculitis clinical syndrome. However, it might be more to put patient on vascular workup, calcium-channel keyonna for vascular spasms, also diagnostic workup for stroke. Get a sedimentation rate as well. LEN ESTEVES MD RR/MODL :10:44 /[id number]
--- NOTE | 2020-01-24 11:42 | NUR ---
Screened patient due to reports of left sided weakness from nursing in [facility]. Awaiting results of MRI, but CT scan was essentially negative with some motion artifact. Patient does demonstrate some weakness on left side in shoulder and elbow flexion, thumb extension, grasp and left knee extension and DF. Patient stated she has had this before (TIA) on her left side and it resolved and she said that she has been walking to the bathroom this morning by herself. She took about 10 steps pushing her IV pole. She was steady but mildly drug her left leg, no DF or heelstrike. Would benefit from skilled PT services while in hospital. Would recommend order for formal PT consult and treatment Addendum: 01/24/20 at 1143 by Anna Montenegro PT Amended: Links added.
[2020-01-24] MEDS ORDERED: LORAZEPAM INJ 2 MG/ML VIAL IV SCH (12:30)
--- NOTE | 2020-01-24 16:03 | Diagnostic Imaging Report ---
MRI BRAIN WO HISTORY: Transient ischemic attack COMPARISON: MRI of the brain 03/29/2019; CTA of the head/neck 01/23/2020; head CT 08/17/2017 TECHNIQUE: Sagittal T2, axial T2, axial T1, axial T2/FLAIR, axial gradient echo (or susceptibility weighted), coronal T2/FLAIR, and axial diffusion weighted MR images of the brain were obtained without contrast. Motion artifacts obscure some details. DISCUSSION: Scalp/bone marrow: Unremarkable. Brain sulci: Appropriate for patient's age. Ventricles: Normal in size and configuration. No hydrocephalus. Extra-axial spaces: No masses or fluid collections. Parenchyma: No abnormal signal intensities. No mass, hemorrhage, or acute vascular insults. Vessels: Normal flow voids in major arteries and veins. Sellar/Suprasellar region: No abnormalities. Craniocervical junction: Stable partially empty sella. Incidental findings: None. IMPRESSION: 1. Unchanged partially empty sella. 2. No other intracranial abnormalities. Signed by: Dr. Jose Sandoval M.D. on 01/24/2020 3:59 PM
[2020-01-24 16:09] LABS: CREATINE KINASE 37 IU/L (29-168)
[2020-01-24] MEDS: VERAPAMIL HCL 80 MG TAB PO SCH (17:18)
[2020-01-24] MEDS: GLIMEPIRIDE 2 MG TAB PO SCH (17:18)
[2020-01-24] MEDS ORDERED: ATORVASTATIN 20 MG TAB PO SCH (21:00)
[2020-01-24] MEDS ORDERED: ATORVASTATIN 40 MG TAB PO SCH (21:00)
--- NOTE | 2020-01-24 21:55 | NUR ---
Urine specimen sent to lab for analysis.
[2020-01-24 21:57] LABS: COLOR,URINE YELLOW (YELLOW)
[2020-01-24 21:58] LABS: BILIRUBIN,URINE NEGATIVE (NEGATIVE); CLARITY,URINE SL CLOUDY (CLEAR); KETONES,URINE NEGATIVE (NEGATIVE); LEUKOCYTE ESTERASE ,URINE SMALL (NEGATIVE); NITRITE,URINE NEGATIVE (NEGATIVE); PROTEIN,URINE DIPSTICK NEGATIVE (NEGATIVE); URINE UROBILINOGEN 1 mg/dL (0.2 - 1)
[2020-01-24 22:03] LABS: BACTERIA,URINE FEW /HPF; EPITHELIAL CELLS,URINE MODERATE /LPF; RBC,URINE 0-5 /HPF (0-5)
[2020-01-25 00:56] VITALS: BP 133/93
[2020-01-25 05:05] VITALS: BP 123/98
--- NOTE | 2020-01-25 07:02 | NUR ---
Walking rounds done. Patient resting comfortably. Shift report given to oncoming nurse regarding patient's status.
[2020-01-25] MEDS: INSULIN REGULAR, HUMAN 100 UNIT/1 ML 3ML VIAL SQ SCH ×3 (07:46→16:32)
[2020-01-25 08:07] VITALS: BP 129/95
[2020-01-25] MEDS: GLIMEPIRIDE 2 MG TAB PO SCH ×2 (08:52→17:12)
[2020-01-25] MEDS: VERAPAMIL HCL 80 MG TAB PO SCH ×2 (08:52→17:12)
[2020-01-25 08:58] VITALS: BP 129/75
[2020-01-25] MEDS ORDERED: LISINOPRIL 2.5 MG TAB PO SCH (09:00)
[2020-01-25] MEDS ORDERED: ASPIRIN 325 MG TAB PO SCH (09:00)
--- NOTE | 2020-01-25 09:35 | NUR ---
paresthesais resolved, left facial numbness imaging reasurring 98.4 78 133/93 HEENT: Shows extraocular muscles intact. Face symmetric. Tongue is midline. Speech is clear. There is no nuchal rigidity. She is morbidly obese. Strength is 5/5. There is no ataxia. ABDOMEN: Soft and nontender. Reflexes are diminished for symmetric. Strength in the bilateral extremities is 5/5. Toes are mute. Sensory is grossly intact bilaterally. ASSESSMENT AND PLAN: I am seeing Mrs. Decker for transient ischemic attack, this is at least a 2nd event that she has history of miscarriages and smoking. 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
[2020-01-25] MEDS ORDERED: INSULIN GLARGINE 100 UNITS/ML VIAL SQ SCH (13:00)
[2020-01-25] MEDS ORDERED: ACETAMINOPHEN 325 MG TAB PO PRN (13:15)
[2020-01-25] MEDS: PHENAZOPYRIDINE HCL 100 MG TAB PO SCH ×2 (13:46→17:12)
--- NOTE | 2020-01-25 14:46 | Progress Note ---
DATE: Internal Medicine Progress Note SUBJECTIVE: The patient is complaining of burning on urination, numbness on the face and arm. The patient has been worked up for vasculitis by Dr. Arroyo, Neurology. MRI of the head did not show any significant abnormality except for empty sella turcica. CT angiogram on the neck and head did not show any significant abnormality except for a mild possible vasculitis. The patient is doing well otherwise. PHYSICAL EXAMINATION: HEART: Showed regular rhythm. Normal S1, S2 sound. LUNGS: Clear bilaterally. ABDOMEN: Soft. EXTREMITIES: Show no evidence of cyanosis or hematoma. NEUROLOGIC: Motor strength 5/5 in upper and lower extremities. Sensory is intact in the right side of the face, a little bit decreased on the left side of the face, on the left arm. Sensory is intact to touch on both lower extremities. Cranial nerves . LABORATORY DATA: On the blood work, we have CBC; white count 7.91, hemoglobin 13.3, hematocrit 39.6, platelet count 240,000. On the BMP; sodium 137, potassium 4.0, chloride 106, CO2 24, BUN 10, creatinine 0.74, glucose 260, calcium 9.5, total bilirubin 0.4, AST 19, ALT 37, alkaline phosphatase 110. TSH is very elevated at 6.235, which indicates hypothyroidism. Vitamin B2 is not there yet. Cholesterol is 132, LDL cholesterol is 76, hemoglobin A1c is super high at 11.2. Coronavirus test is pending. Immunology panel is still pending. We have anticardiolipin antibodies. anti-prothrombin IgM, anti-prothrombin IgG, thyroid peroxidase is high, beta-2 GPI FINAL IMPRESSION: 1. Facial numbness, most likely secondary to diabetic neuropathy. 2. Uncontrolled diabetes mellitus type 2 with very clear diabetic neuropathy. 3. Morbid obesity. 4. Hypertension. 5. Urinary tract infection. 6. Hypothyroidism, which is acquired. PLAN OF TREATMENT: The patient restarted on aspirin 325 mg daily, Lipitor 40 mg daily. Continue glimepiride 2 mg twice a day. I started her on Lantus 11 units at bedtime because the blood sugar is extremely high. Hemoglobin A1c is extremely high, most likely with very uncontrolled diabetes. Continue lisinopril 5 mg daily, lorazepam 1 mg one time. Continue to monitor blood sugar before meals and at bedtime. Continue Calan 40 mg twice a day. I am going to also add levothyroxine, going to start 5 mcg daily because of hypothyroidism and of course we need to check the TSH in approximately two months. Also going to start her on Bactrim DS because of possible UTI. The urine culture has been sent already. We are going to start her on Pyridium also for the burning and in the meantime we are waiting for urine culture to be ready. Dr. Arroyo is on the case for Neurology. We are going to continue the current medication regimen. We are going to wait for the workup to be complete. The patient probably should be able to go home soon and these workup can be done as an outpatient. Time spent around 45 minutes. MD GUS Flores/JIGAR /[id number]
[2020-01-25] MEDS ORDERED: PREGABALIN 50 MG CAP PO SCH (15:00)
[2020-01-25 16:18] VITALS: BP 132/90
--- NOTE | 2020-01-25 17:40 | NUR ---
Talked to Dr Teran, discharge order recvd, Per Case management, they talked to Dr Cruz Davis he cleared patient to go home.
--- NOTE | 2020-01-25 17:51 | NUR ---
Notified Dr Arroyo regarding patient's discharge . Per him patient can continue the aspirin and Atorvastatin which she take at home and f/up with him in 10d-2wk.
--- NOTE | 2020-01-25 18:11 | NUR ---
patient discharged home, IV removed with tip intact , no ss of infiltration, denies any pain, no distress noted, transported via wheelchair to [facility], her son here to pick her
[2020-01-25] MEDS ORDERED: TRIMETHOPRIM/SULFAMETHOXAZOLE 160-800 MG TAB PO SCH (21:00)
[2020-01-26] MEDS ORDERED: LEVOTHYROXINE SODIUM 50 MCG TAB PO SCH (06:00)
== END 2020-01-25 18:15 | disposition home or self-care (01) ==
LOC: ER 21:10 → ERHOLD 23:30 → MED/SURG2 01-24 05:30
DX: G45.9 Transient cerebral ischemic attack, unspecified (principal); I10 Essential (primary) hypertension; E11.9 Type 2 diabetes mellitus without complications; E66.01 Morbid (severe) obesity due to excess calories; Z68.43 Body mass index [BMI] 50.0-59.9, adult; E11.40 Type 2 diabetes mellitus with diabetic neuropathy, unspecified; Z79.4 Long term (current) use of insulin; N39.0 Urinary tract infection, site not specified; E03.9 Hypothyroidism, unspecified; Z72.0 Tobacco use; Z86.73 Personal history of transient ischemic attack (TIA), and cerebral infarction without residual deficits; Z11.59 Encounter for screening for other viral diseases
CPT/HCPCS: 36415 ×3; 70496; 70498; 70551; 80053 ×2; 80061; 81001; 81025; 82550 ×2; 82553 ×2; 82746; 82948 ×2; 83021; 83036; 83090; 83874; 84252; 84443; 84484 ×2; 85025 ×2; 85597; 85598; 85613 ×2; 85651; 85730; 85732; 86039; 86146 ×3; 86147; 86148; 86376; 86849; 93005; 93306; 97139 ×2; 99284; G0378 ×3; J1817; J2060; J7030; J7050; Q9967; U0002

== ENCOUNTER 2020-02-29 20:52 | Inpatient (IN) | payer OTHER ==
[~2020-02-29] VITALS: Ht 149.9 cm; Wt 76.9 kg
[~2020-02-29 20:52] MED LIST changes: +ATORVASTATIN CA20 MG PO; +GLIMEPIRIDE2 MG PO
[2020-02-29] MEDS ORDERED: METHYLPREDNISOLONE SOD SUCC 125 MG/2ML VIAL IV ONE (21:45)
[2020-02-29] MEDS ORDERED: AZITHROMYCIN 500MG/NS 250 ML 250 ML IV ONE (21:45)
[2020-02-29] MEDS ORDERED: CEFTRIAXONE SOD 1 GM/NS 50 ML 50 ML IV ONE (21:45)
--- NOTE | 2020-02-29 21:46 | Diagnostic Imaging Report ---
EXAMINATION: CXR [facility] INDICATION: Short of breath , chest pain, Covid COMPARISON: chest x-ray 03/29/2019 FINDINGS: TUBES and LINES: None. LUNGS: Low lung volumes. Multifocal bilateral patchy haziness. PLEURA: No pleural effusion or pneumothorax. HEART AND MEDIASTINUM: The cardiomediastinal silhouette is unremarkable. BONES AND SOFT TISSUES: No acute osseous lesion. Soft tissues are unremarkable. UPPER ABDOMEN: No free air under the diaphragm. IMPRESSION: Low lung volumes. Multifocal bilateral patchy haziness can be due to atelectasis or multifocal pneumonia.. Signed by: Harvey Elmore DO on 02/29/2020 9:42 PM
[2020-02-29] MEDS ORDERED: METHYLPREDNISOLONE SOD SUCC 125 MG/2ML VIAL ONE (22:17)
[2020-02-29] MEDS ORDERED: CEFTRIAXONE SOD 500 MG VIAL ONE (22:17)
[2020-02-29] MEDS ORDERED: SODIUM CHLORIDE 0.9% 250ML 250 ML ONE (22:17)
[2020-02-29] MEDS ORDERED: KETOROLAC TROMETHAMINE 30 MG/ML VIAL IV STA (22:24)
--- OUTSIDE RECORDS SUMMARY | 2020-02-29 22:26 | XMS REPORT | Continuity of Care Document ---
Author Author [facility] t Organization [facility] Address [address] [place] [address] Phone Unavailable Care Team Providers Care Industrial Engineering Manager Name Role Phone MABLE ANTONY MD PCP Brook COELLO Attphys Unavailable MABLE ANTONY Attphys Unavailable KARLY GUZMÁN Attphys Unavailable Eneida SHARP Attphys Unavailable ANTONY, SOUHEGENEVA Admphys Unavailable Payers Payer Name Policy Type Policy Number Effective Date Expiration Date Liat Alonso Pos [id number] 2018 00:00:00 [facility] Problems Condition Name Condition Details Condition Category Status Onset Date Resolution Date Last Treatment Date Treating Clinician Comments Source Cerebrovascular accident (CVA) CVA (cerebral vascular accident) Pro blem Active [facility] Allergies, Adverse Reactions, Alerts Allergy Name Allergy Type Status Severity Reaction(s) Onset Date Inacti ve Date Treating Clinician Comments Source Clindamycin Allergy to Substance Active 2019-03-28 00:00:00 [facility] clindamycin DA Active 2018-12-13 00:00:00 [facility] levofloxacin DA Active SV 2018-12-13 00:00:00 [facility] clindamycin DA Active SV 2017-11-29 00:00:00 [facility] levofloxacin DA Active 2017-11-29 00:00:00 [facility] Medications Ordered Medication Name Filled Medication Name Start Date Stop Da te Current Medication? Ordering Clinician Indication Dosage Frequency Signature (SIG) Comments Components Source Lisinopril (Prinavil / Zestril) 20 Mg Tablet Lisinopri l (Prinavil / Zestril) 20 Mg Tablet Yes 20 Daily [facility] Metformin Hcl 500 Mg Tablet Metformin Hcl 500 Mg Tablet Yes 500 Twice A Day [facility] Medroxyprogesterone Acetate 10 Mg Tablet, 10 Mg Oral M edroxyprogesterone Acetate 10 Mg Tablet, 10 Mg Oral 2016-08-28 00:00:00 No 10 Daily [facility] Naproxen 375 Mg Tablet., 375 Mg Oral Naproxen 375 Mg Tablet. , 375 Mg Oral 2016-08-28 00:00:00 No 375 Twice A Day [facility] Procedures Procedure Date / Time Performed Performing Clinician Sour e Magnetic resonance imaging of brain without contrast 2019-03 00:00:00 ARACELIS YEUNG [facility] Computed tomography angiography of brain 2019-03-28 00:00:00 KACIE SIMMS [facility] CT angiography of neck 2019-03-28 00:00:00 KACIE MCBRIDE [facility] CT of abdomen and pelvis without contrast 2019-03-28 00:00:00 [facility] INTRODUCE OTH THROMBOLYTIC IN PERIPH VEIN, PERC 2019-03-28 0 0:00:00 KACIE MCBRIDE [facility] Encounters Start Date/Time End Date/Time Encounter Type Admission Type Attendi [facility] Facility Care Department Encounter ID Source 2019-09-19 22:33:00 2019-09-20 02:29:00 Departed Emergency Room 1 KARLY GUZMÁN [facility] [id number] [facility] 2019-05-28 15:07:00 2019-05-28 15:07:00 Registered Clinic 3 MABLE ANTONY [facility] [id number] [facility] 2019-03-28 12:42:00 2019-03-30 17:40:00 Discharged Inpatient 1 MABLE ANTONY [facility] [id number] [facility] 2017-08-17 12:16:00 2017-08-17 16:02:00 Departed Emergency Room ER DORA SHARP [facility] [id number] [facility] Results Test Description Test Time Test Comments Results Result Comments Source CXR 1 [facility] 2020-02-29 21:41:00 [place] [address] Patient Name: DILMA BARNARD MR #: [id number] : 1970 Age/Sex: 50/F Req #: [id number] Adm Physician: Ordered by: TRUDY COELLO Report #: [id number] Location: [facility] Room/Bed: Procedure: [id number] HOPD/CXR 1 [facility] Exam Date: 02/29/20 Exam Time: 2114 REPORT STATUS: Signed EXAMINATION: CXR 1 [facility] INDICATION: Short of breath , chest pain, Covid COMPARISON: chest x- ray 03/29/2019 FINDINGS: TUBES and LINES: None. LUNGS: Low lung volumes. Multifocal bilateral patchy haziness. PLEURA: No pleural effusion or pneumothorax. HEART AND MEDIASTINUM: The cardiomediastinal silhouette is unremarkable. BONES AND SOFT TISSUES: No acute osseous lesion. Soft tissues are unremarkable. UPPER ABDOMEN: No free air under the diaphragm. IMPRESSION: Low lung volumes. Multifocal bilateral patchy haziness can be due to atelectasis or multifocal pneumonia.. Signed by: Harvey Benitez DO on 02/29/2020 9:42 PM Dictated By: HARVEY BENITEZ DO 41 Transcribed By: MONSERRAT on 02/29/202141 COPY TO: TRUDY COELLO MRI BRAIN WO 2020-01-24 15:54:00 [place] [address] Patient Name: DILMA BARNARD MR #: [id number] : 1970 Age/Sex: 49/F Req #: [id number] Adm Physician: MABLE ANTONY MD Ordered by: MABLE ANTONY MD Report #: [id number] Location: MED/SURG2 Room/Bed: [facility] Procedure: [id number] MRI/MRI BRAIN WO Exam Date: Exam Time: REPORT STATUS: Signed MRI BRAIN WO HISTORY: Transient ischemic attack COMPARISON: MRI of the brain 03/29/2019; CTA of the head/neck 01/23/2020; head CT 08/17/2017 TECHNIQUE: Sagittal T2, axial T2, axial T1, axial T2/FLAIR, axial gradient echo (or susceptibility weighted), coronal T2/FLAIR, and axial diffusion weighted MR images of the brain were obtained without contrast. Motion artifacts obscure some details. DISCUSSION: Scalp/bone marrow: Unremarkable. Brain sulci: Appropriate for patient's age. Ventricles: Normal in size and configuration. No hydrocephalus. Extra-axial spaces: No masses or fluid collections. Parenchyma: No abnormal signal intensities. No mass, hemorrhage, or acute vascular insults. Vessels: Normal flow voids in major arteries and veins. Sellar/Suprasellar region: No abnormalities. Craniocervical junction: Stable partially empty sella. Incidental findings: None. IMPRESSION: 1. Unchanged partially empty sella. 2. No other intracranial abnormalities. Signed by: Dr. Jose Sandoval M.D. on 01/24/2020 3:59 PM Dictated By: JOSE SANDOVAL MD 58 Transcribed By: MONSERRAT on 01/24/201558 COPY TO: MABLE ANTONY MD CTA BRAIN 2020-01-23 21:48:00 [place] [address] Patient Name: DILMA BARNARD MR #: [id number] : 1970 Age/Sex: 49/F Req #: [id number] Adm Physician: Ordered by: DAVID LEMA DO Report #: [id number] Location: ER Room/Bed: Procedure: [id number] CT/CTA BRAIN Exam Date: 01/23/20 Exam Time: 2100 REPORT STATUS: Signed EXAMINATION: CT angio of the neck and head with contrast. HISTORY:Left-sided weakness and facial numbness. COMPARISON:MRI brain from 03/29/2019, CTA head and neck from 03/28/2019. TECHNIQUE: CTA: Multidetector helical axial images were acquired through the neck and head during infusion of iodinated contrast material. Images were reviewed in multiplanar and 3-dimensional format. CT head: Multidetector axial images were obtained from the foramen magnum to the vertex without contrast. The images were reconstructed using brain and bone algorithms. Dose modulation, iterative reconstruction, and/or weight based adjustment of the mA/kV was utilized to reduce the radiation dose to as low as reasonably achievable. Contrast: 100 mL of Isovue-370 . FINDINGS: CT head: Suboptimal evaluation due to motion-related streak artifacts particularly at the level of skull base and posterior fossa. Skull/scalp: No lytic or blastic. lesions. No surgical changes. Parenchyma: No abnormal density. No acute hemorrhage, mass or acute major vascular territorial infarct. Arteries: No density suggestive of thrombosis. Dural sinuses: No abnormal density suggestive of thrombosis. Ventricles: No hydrocephalus or displacement. Extra-axial spaces: No abnormal density. Brain volume: Normal for age. Craniocervical junction: No mass, Chiari malformation, or basilar invagination. Sella: Enlarged, CSF filled partial empty sella. Paranasal/mastoid sinuses: Imaged portions unremarkable. NECK: If carotid bulb stenosis is present, stenosis is measured with respect to the distal extracranial internal carotid artery. Aortic arch and major vessels: Patent, no abnormality. Common carotid arteries: Patent, no abnormality Carotid bulb: Patent, no abnormality. Internal carotid arteries: Right: Retropharyngeal course of the cervical segment of right internal carotid artery at level C2. Otherwise patent, no abnormality. Left: Patent, no abnormality. Vertebral arteries: Patent, no abnormality. Incidental finding: Dental caries and endodontal disease of right mandibular third molar, the activity of which is to be determined cl inically. Enlarged, CSF filled partial empty sella. HEAD: Internal carotid arteries: Patent, no abnormality. Bilateral A1 and A2 segments of the anterior cerebral arteries are patent without abnormality. Right M1 segment of middle cerebral artery is patent without abnormality. Mild diminutive appearance of distal M2 segment of right middle cerebral artery but patent. Left M1 and M2 segments are patent without abnormality. Vertebral arteries: Patent. Basilar artery: Patent. Posterior cerebral arteries: Patent. Anatomical variants: Anterior communicating artery :Patent Posterior communicating arteries: Patent Vertebral arteries: Codominant. IMPRESSION: CT head: Suboptimal evaluation due to motion artifacts, despite the limitation no gross acute intracranial abnormality. CTA head and neck: Mild diminutive appearance of the distal M2 segment of right middle cerebral artery may represent underlying vasculitis. Otherwise no significant cervical or intracranial vascular abnormality. Signed by: Dr. Miguelina Barreto M.D. on 01/23/2020 10:18 PM Dictated By: MIGUELINA BARRETO MD 17 Transcribed By: MONSERRAT on 01/23/202217 COPY TO: DAVID LEMA DO CTA NECK 2020-01-23 21:48:00 [place] [address] Patient Name: DILMA BARNARD MR #: [id number] : 1970 Age/Sex: 49/F Req #: [id number] Adm Physician: Ordered by: DAVID LEMA DO Report #: [id number] Location: ER Room/Bed: Procedure: [id number] CT/CTA NECK Exam Date: 01/23/20 Exam Time: 2100 REPORT STATUS: Signed EXAMINATION: CT angio of the neck and head with contrast. HISTORY:Left-sided weakness and facial numbness. COMPARISON:MRI brain from 03/29/2019, CTA head and neck from 03/28/2019. TECHNIQUE: CTA: Multidetector helical axial images were acquired through the neck and head during infusion of iodinated contrast material. Images were reviewed in multiplanar and 3-dimensional format. CT head: Multidetector axial images were obtained from the foramen magnum to the vertex without contrast. The images were reconstructed using brain and bone algorithms. Dose modulation, iterative reconstruction, and/or weight based adjustment of the mA/kV was utilized to reduce the radiation dose to as low as reasonably achievable. Contrast: 100 mL of Isovue-370 . FINDINGS: CT head: Suboptimal evaluation due to motion-related streak artifacts particularly at the level of skull base and posterior fossa. Skull/scalp: No lytic or blastic. lesions. No surgical changes. Parenchyma: No abnormal density. No acute hemorrhage, mass or acute major vascular territorial infarct. Arteries: No density suggestive of thrombosis. Dural sinuses: No abnormal density suggestive of thrombosis. Ventricles: No hydrocephalus or displacement. Extra-axial spaces: No abnormal density. Brain volume: Normal for age. Craniocervical junction: No mass, Chiari malformation, or basilar invagination. Sella: Enlarged, CSF filled partial empty sella. Paranasal/mastoid sinuses: Imaged portions unremarkable. NECK: If carotid bulb stenosis is present, stenosis is measured with respect to the distal extracranial internal carotid artery. Aortic arch and major vessels: Patent, no abnormality. Common carotid arteries: Patent, no abnormality Carotid bulb: Patent, no abnormality. Internal carotid arteries: Right: Retropharyngeal course of the cervical segment of right internal carotid artery at level C2. Otherwise patent, no abnormality. Left: Patent, no abnormality. Vertebral arteries: Patent, no abnormality. Incidental finding: Dental caries and endodontal disease of right mandibular third molar, the activity of which is to be determined cli nically. Enlarged, CSF filled partial empty sella. HEAD: Internal carotid arteries: Patent, no abnormality. Bilateral A1 and A2 segments of the anterior cerebral arteries are patent without abnormality. Right M1 segment of middle cerebral artery is patent without abnormality. Mild diminutive appearance of distal M2 segment of right middle cerebral artery but patent. Left M1 and M2 segments are patent without abnormality. Vertebral arteries: Patent. Basilar artery: Patent. Posterior cerebral arteries: Patent. Anatomical variants: Anterior communicating artery :Patent Posterior communicating arteries: Patent Vertebral arteries: Codominant. IMPRESSION: CT head: Suboptimal evaluation due to motion artifacts, despite the limitation no gross acute intracranial abnormality. CTA head and neck: Mild diminutive appearance of the distal M2 segment of right middle cerebral artery may represent underlying vasculitis. Otherwise no significant cervical or intracranial vascular abnormality. Signed by: Dr. Miguelina Barreto M.D. on 01/23/2020 10:18 PM Dictated By: MIGUELINA BARRETO MD 17 Transcribed By: MONSERRAT on 01/23/202217 COPY TO: DAVID LEMA DO SP LUMBAR, COMPLETE MIN 4VW 2019-10-03 14:25:00 [place] [address] Patient Name: DILMA BARNARD MR #: [id number] : 1970 Age/Sex: 49/F Req #: [id number] Adm Physician: Ordered by: MABLE ANTONY MD Report #: [id number] Location: RAD Room/Bed: Procedure: [id number] DX/SP LUMBAR, COMPLETE MIN 4VW Exam Date: 10/03/19 Exam Time: 1250 REPORT STATUS: Signed Lumbar spine series, 5 views. History: Low back pain. Comparison: None available. Discussion: The paraspinal soft tissues are unremarkable. The alignment of the lumbar spine is normal. There is no evidence of fracture, spondylolisthesis, or spondylolysis. The intervertebral disc spaces are within normal limits. Small scattered osteophytes and posterior facet sclerosis are noted. IMPRESSION: Mild degenerative changes of the lumbar spine. Signed by: David Howard on 10/03/2019 2:26 PM Dictated By: DAVID HOWARD MD 142 Transcribed By: VIRGIL LEMA on 10/03/19 1426 COPY TO: MABLE ANTONY MD Bedside Glucose 2019-09-20 02:20:00 Test Item Bedside Glucose (test code = 96438-4) 313 70-120 H Meter ID: [id number] [address] (KUB) 2019-09-20 00:50:00 [place] [address] Patient Name: DILMA BARNARD MR #: [id number] : 1970 Age/Sex: 49/F Req #: [id number] Adm Physician: Ordered by: KARLY GUZMÁN DO Report #: [id number] Location: ER Room/Bed: Procedure: [id number] DX/ ABDOMEN-1VIEW (KUB) Exam Date: 09/19/19 Exam Time: 2 345 REPORT STATUS: Signed Exam: KUB - 3 views Clinical History: Right flank pain. Comparison: CT Abdo men/Pelvis 03/28/19. Findings: Nonobstructive bowel gas pattern. No evide nce of free intraperitoneal air. No evidence of abnormal calcification. No acu te bony abnormality. Mild degenerative changes in bilateral hips. Status post cholecystectomy. Impression: No acute radiographic abnormality. No eviden ce of nephrolithiasis. Signed by: Dr. Yadi Dan MD on 09/20/2019 12:57 AM Dictated By: YADI DAN MD COPY TO: KARLY GUZMÁN DO Urine [id number] 00:08:00* Test Item Value Reference Range Interpretation Comments Urine WBC (test code = 5821-4) 6-10 0-5 H [facility] [id number] 00:08:00* Test Item Value Reference Range Interpretation Comments Urine RBC (test code = 11801-3) 0-5 0-5 [facility] Hospital[facility] [id number] 00:08:00* Test Item Value Reference Range Interpretation Comments Urine Bacteria (test code = 54261-7) RARE NONE [facility] Hospital[facility] Epithelial [id number] 00:08:00 * Test Item Value Reference Range Interpretation Comments Urine Epithelial Cells (test code = 69640-5) FEW NONE [facility] HospitalUrine [id number] 00:08:00* Test Item Value Reference Range Interpretation Comments Urine Yeast (test code = 50444-9) FEW NONE H [facility] HospitalWhite Blood Gpder1809-55-44 00:00:00* Test Item Value Reference Range Interpretation Comments White Blood Count (test code = 6690-2) 9.16 4.8-10.8 [facility] HospitalRed Blood Ohbaw0480-80-04 00:00:00* Test Item Value Reference Range Interpretation Comments Red Blood Count (test code = 789-8) 4.64 3.6-5.1 [facility] HospitalHemoglobin2020-03-13 00:00:00* Test Item Value Reference Range Interpretation Comments Hemoglobin (test code = 68320-1) 13.9 12.0-16.0 [facility] HospitalHematocrit2020-03-13 00:00:00* Test Item Value Reference Range Interpretation Comments Hematocrit (test code = 4544-3) 41.6 34.2-44.1 [facility] HospitalMean Corpuscular [id number] 00:00:00* Test Item Value Reference Range Interpretation Comments Mean Corpuscular Volume (test code = 787-2) 89.7 81-99 [facility] HospitalMean Corpuscular Ftxqpfyzvk7281-23-35 00:00:00* Test Item Value Reference Range Interpretation Comments Mean Corpuscular Hemoglobin (test code = 785-6) 30.0 28-32 [facility] HospitalMean Corpuscular Hemoglobin Concent 2019-09-20 00:00:00* Test Item Value Reference Range Interpretation Comments Mean Corpuscular Hemoglobin Concent (test code = 786-4) 33.4 31-35 [facility] HospitalRed Cell Distribution Izsep3265-95-42 00:00:00* Test Item Value Reference Range Interpretation Comments Red Cell Distribution Width (test code = 76249-0) 13.2 11.7 -14.4 [facility] HospitalPlatelet Hpcnn3916-71-88 00:00:00* Test Item Value Reference Range Interpretation Comments Platelet Count (test code = 777-3) 271 140-360 [facility] HospitalNeutrophils (%) (Auto)2019-09-20 00:00:00 * Test Item Value Reference Range Interpretation Comments Neutrophils (%) (Auto) (test code = 44501-9) 54.5 38.7-80.0 [facility] HospitalLymphocytes (%) (Auto)2019-09-20 00:00:00 * Test Item Value Reference Range Interpretation Comments Lymphocytes (%) (Auto) (test code = 736-9) 37.1 18.0-39.1 [facility] HospitalMonocytes (%) (Auto)2019-09-20 00:00:00* Test Item Value Reference Range Interpretation Comments Monocytes (%) (Auto) (test code = 5905-5) 5.6 4.4-11.3 [facility] HospitalEosinophils (%) (Auto)2019-09-20 00:00:00 * Test Item Value Reference Range Interpretation Comments Eosinophils (%) (Auto) (test code = 713-8) 2.1 0.0-6.0 [facility] HospitalBasophils (%) (Auto)2019-09-20 00:00:00* Test Item Value Reference Range Interpretation Comments Basophils (%) (Auto) (test code = 706-2) 0.4 0.0-1.0 [facility] HospitalIM GRANULOCYTES %2019-09-20 00:00:00* Test Item Value Reference Range Interpretation Comments IM GRANULOCYTES % (test code = IM GRANULOCYTES %) 0.3 0.0- 1.0 [facility] HospitalNeutrophils # (Auto)2019-09-20 00:00:00* Test Item Value Reference Range Interpretation Comments Neutrophils # (Auto) (test code = 751-8) 5.0 2.1-6.9 [facility] HospitalLymphocytes # (Auto)2019-09-20 00:00:00* Test Item Value Reference Range Interpretation Comments Lymphocytes # (Auto) (test code = 34163-6) 3.4 1.0-3.2 H [facility] HospitalMonocytes # (Auto)2019-09-20 00:00:00* Test Item Value Reference Range Interpretation Comments Monocytes # (Auto) (test code = 742-7) 0.5 0.2-0.8 [facility] HospitalEosinophils # (Auto)2019-09-20 00:00:00* Test Item Value Reference Range Interpretation Comments Eosinophils # (Auto) (test code = 711-2) 0.2 0.0-0.4 [facility] HospitalBasophils # (Auto)2019-09-20 00:00:00* Test Item Value Reference Range Interpretation Comments Basophils # (Auto) (test code = 704-7) 0.0 0.0-0.1 [facility] HospitalAbsolute Immature Granulocyte (auto 2019-09-20 00:00:00* Test Item Value Reference Range Interpretation Comments Absolute Immature Granulocyte (auto (verona t code = Absolute Immature Granulocyte (auto) 0.03 0-0.1 [facility] Vqxdu3468-59-13 23:59:00* Test Item Value Reference Range Interpretation Comments Sodium Level (test code = 2951-2) 137 136-145 [facility] HospitalPotassium Nsykz2842-24-91 23:59:00* Test Item Value Reference Range Interpretation Comments Potassium Level (test code = 2823-3) 4.5 3.5-5.1 [facility] HospitalChloride Sudrf3409-32-76 23:59:00* Test Item Value Reference Range Interpretation Comments Chloride Level (test code = 2075-0) 103 98-107 [facility] HospitalCarbon Dioxide Vlzgx7984-77-28 23:59:00* Test Item Value Reference Range Interpretation Comments Carbon Dioxide Level (test code = 2028-9) 27 22-29 [facility] HospitalAnion Knp8642-03-51 23:59:00* Test Item Value Reference Range Interpretation Comments Anion Gap (test code = 54228-1) 11.5 8-16 [facility] HospitalBlood Urea Esxdwhfr4663-67-90 23:59:00* Test Item Value Reference Range Interpretation Comments Blood Urea Nitrogen (test code = 3094-0) 12 7-26 [facility] HospitalCreatinine2020-03-12 23:59:00* Test Item Value Reference Range Interpretation Comments Creatinine (test code = 2160-0) 1.09 0.57-1.11 [facility] HospitalBUN/Creatinine Kybyj8614-21-87 23:59:00* Test Item Value Reference Range Interpretation Comments BUN/Creatinine Ratio (test code = 3097-3) 11 6-25 [facility] HospitalEstimat Glomerular Filtration Rate 2019-09-19 23:59:00* Test Item Value Reference Range Interpretation Comments Estimat Glomerular Filtration Rate (test code = 216486240) 54 >60 L Ranges were taken from the National Kidney Disease Education Program and the [employer] [facility] [employer] literature.Reference ranges:60 or greater: Qhmgxc84-55 ( for 3 consecutive months): Chronic kidney disease 15 or less: Kidney failureHarris Health System Ben Taub HospitalGlucose Bsusz8172-64-22 23:59:00* Test Item Value Reference Range Interpretation Comments Glucose Level (test code = DUJ1366) 481 74-118 HH Results repeated and called to DAKOTA MARTINEZ RN at 2358 on 09/19/19 by Mireya clarke. Read back and verified.[facility] HospitalCalcium Level 2019-09-19 23:59:00* Test Item Value Reference Range Interpretation Comments Calcium Level (test code = 43439-2) 10.0 8.4-10.2 [facility] HospitalTotal Paiqtulue1642-10-48 23:59:00* Test Item Value Reference Range Interpretation Comments Total Bilirubin (test code = 1975-2) 0.5 0.2-1.2 [facility] HospitalAspartate Amino Transf (AST/SGOT) 2019-09-19 23:59:00* Test Item Value Reference Range Interpretation Comments Aspartate Amino Transf (AST/SGOT) (test code = Aspartate Amino Transf (AST/SGOT)) < 3 5-34 L [facility] HospitalAlanine Aminotransferase (ALT/SGPT) 2019-09-19 23:59:00* Test Item Value Reference Range Interpretation Comments Alanine Aminotransferase (ALT/SGPT) (test code = 1742-6) 31 0-55 [facility] HospitalTotal Ynkgobh2702-32-86 23:59:00* Test Item Value Reference Range Interpretation Comments Total Protein (test code = 2885-2) 7.5 6.5-8.1 [facility] HospitalAlbumin2020-03-12 23:59:00* Test Item Value Reference Range Interpretation Comments Albumin (test code = 1751-7) 3.8 3.5-5.0 [facility] HospitalGlobulin2020-03-12 23:59:00* Test Item Value Reference Range Interpretation Comments Globulin (test code = 82304-3) 3.7 2.3-3.5 H [facility] HospitalAlbumin/Globulin Oyhhh8098-62-81 23:59:00 * Test Item Value Reference Range Interpretation Comments Albumin/Globulin Ratio (test code = 1759-0) 1.0 0.8-2.0 [facility] HospitalAlkaline Zoslxmfnbwd0372-79-84 23:59:00* Test Item Value Reference Range Interpretation Comments Alkaline Phosphatase (test code = 6768-6) 121 40-150 [facility] HospitalUrine Lznxb6135-98-80 23:42:00* Test Item Value Reference Range Interpretation Comments Urine Color (test code = 5778-6) YELLOW YELLOW [facility] HospitalUrine Okfxkfl2965-81-09 23:42:00* Test Item Value Reference Range Interpretation Comments Urine Clarity (test code = 64029-7) CLEAR CLEAR [facility] HospitalUrine Specific Dhnpoba6668-10-84 23:42:00 * Test Item Value Reference Range Interpretation Comments Urine Specific [place] (test code = 5811-5) 1.020 1.010-1.02 5 [facility] HospitalUrine [id number] 23:42:00* Test Item Value Reference Range Interpretation Comments Urine pH (test code = 30511-2) 5.5 5-7 [facility] HospitalU[facility] Leukocyte Fnnkwkqz3349-09-81 23:42:00* Test Item Value Reference Range Interpretation Comments Urine Leukocyte Esterase (test code = 5799-2) NEGATIVE NEGATIVE [facility] HospitalUrine Djwjxad6540-01-71 23:42:00* Test Item Value Reference Range Interpretation Comments Urine Nitrite (test code = 19598-7) NEGATIVE NEGATIVE [facility] HospitalUrine Loexutl1260-26-95 23:42:00* Test Item Value Reference Range Interpretation Comments Urine Protein (test code = 5804-0) NEGATIVE NEGATIVE [facility] HospitalUrine Glucose (UA)2019-09-19 23:42:00* Test Item Value Reference Range Interpretation Comments Urine Glucose (UA) (test code = 2349-9) 3+ NEGATIVE H [facility] HospitalUrine Lrvrgnp7637-08-32 23:42:00* Test Item Value Reference Range Interpretation Comments Urine Ketones (test code = 81496-6) NEGATIVE NEGATIVE [facility] Gdgnwzoyxfho8121-39-68 23:42:00* Test Item Value Reference Range Interpretation Comments Urine Urobilinogen (test code = 10385-0) 0.2 0.2-1 [facility] Kcdtkfsqb8593-38-73 23:42:00* Test Item Value Reference Range Interpretation Comments Urine Bilirubin (test code = 1978-6) NEGATIVE NEGATIVE [facility] Hospital[facility] Lyqdv8769-87-03 23:42:00* Test Item Value Reference Range Interpretation Comments Urine Blood (test code = 16403-3) NEGATIVE NEGATIVE [facility]TREPTOCOCCUS PCR [id number] 16:34:00* Test Item Value Reference Range Interpretation Comments STREPTOCOCCUS DYSGALACTIAE (test code = STREPGC) NEGATIVE FOR G/C N EGATIVE STREPA MOLECULAR (test code = STREPAMOL) NEGATIVE FOR GRP A NEGATIV E BASIC METABOLIC [id number] 17:50:00* Test Item Value Reference Range Interpretation Comments SODIUM (test code = NA) 138 mmol/L 136-145 N POTASSIUM (test code = K) 3.8 mmol/L 3.5-5.1 N CHLORIDE (test code = CL) 104 mmol/L 101-109 N CARBON DIOXIDE (test code = CO2) 24.7 mmol/L 21-32 N ANION GAP (test code = GAP) 13 mmol/L 10-20 N GLUCOSE (test code = GLU) 291 mg/dL 74-106 H BLOOD UREA NITROGEN (test code = BUN) 11 mg/dL 3-21 N GLOMERULAR FILTRATION RATE (test code = GFR) > 60 mL/min >=60 Estimated GFR by using Modified MDRD formula.Chronic kidney disease is defined as either kidney damageor GFR <60 mL/min/1.73 m2 for >3 months. CREATININE (test code = CREAT) 0.75 mg/dL 0.55-1.3 N BUN/CREATININE RATIO (test code = BUN/CREA) 14.7 10-20 N CALCIUM (test code = CA) 9.1 mg/dL 8.4-10.2 N HEPATIC FUNCTION [id number] 17:50:00* Test Item Value Reference Range Interpretation Comments TOTAL PROTEIN (test code = PROT) 7.0 g/dL 6.5-8.4 N ALBUMIN (test code = ALB) 3.2 g/dL 3.4-4.8 L GLOBULIN (test code = GLOB) 3.8 G/DL 1-10 N ALBUMIN/GLOBULIN RATIO (test code = A/G) 0.84 RATIO 0.75-1.50 N BILIRUBIN TOTAL (test code = BILT) 0.40 mg/dL 0.0-1.0 N BILIRUBIN DIRECT (test code = BILD) 0.10 mg/dL 0.0-0.30 N SGOT/AST (test code = AST) 16 U/L 6-32 N SGPT/ALT (test code = ALT) 29 U/L 12-78 N N ote: Change in REFERENCE RANGE due to new reagent method. ALKALINE PHOSPHATASE TOTAL (test code = ALKP) 128 U/L 38-126 H [id number] 17:50:00* Test Item Value Reference Range Interpretation Comments LIPASE (test code = LIP) 513 U/L 128-270 H HCG SERUM [id number] 17:50:00* Test Item Value Reference Range Interpretation Comments HCG SERUM QUAL (test code = HCGQL) NEGATIVE NEGATIVE This HCGQL test is NOT applicable for MALE patients.Check with nurse about probable order error.If Tumor Marker Test needed, nurse should order test "HCGTU"(Test #550.72332) [id number] 17:50:00* Test Item Value Reference Range Interpretation Comments TROPONIN-I (test code = TROPI) <0.015 ng/mL 0.00-0.056 N URINALYSIS [id number] 17:49:00* Test Item Value Reference Range Interpretation Comments UA COLOR (test code = COLU) YELLOW YELLOW UA APPEARANCE (test code = APPU) SLIGHT HAZY CLEAR A UA GLUCOSE DIPSTICK (test code = DGLUU) 1000 (3+) mg/dL NEGATIVE A UA BILIRUBIN DIPSTICK (test code = BILU) NEGATIVE mg/dL NEGATIVE UA KETONE DIPSTICK (test code = KETU) neg mg/dL NEGATIVE UA SPECIFIC GRAVITY (test code = SGU) 1.015 1.001-1.035 UA BLOOD DIPSTICK (test code = BEULAH) neg Nhan/uL NEGATIVE UA PH DIPSTICK (test code = LEONIE) 5.0 5.0-8.0 UA PROTEIN DIPSTICK (test code = PROU) neg mg/dL Neg-15 UA UROBILINIOGEN DIPSTICK (test code = URO) norm mg/dL 0.0-0.2 UA NITRITE DIPSTICK (test code = ARTHUR) NEGATIVE NEGATIVE UA LEUKOCYTE ESTERASE DIPSTICK (test code = LEUU) neg uL NEGA TIVE UA WBC (test code = WBCU) NONE SEEN per HPF 0-5 UA RBC (test code = RBCU) NONE SEEN per HPF 0-5 UA EPITHELIAL CELLS (test code = EPIU) Rare (0-1/hpf) per HPF Few UA BACTERIA (test code = BACU) FEW per HPF NONE Urine Source? Clean CatchBASIC METABOLIC [id number] 17:45:00* Test Item Value Reference Range Interpretation Comments SODIUM (test code = NA) 138 mmol/L 136-145 N POTASSIUM (test code = K) 3.8 mmol/L 3.5-5.1 N CHLORIDE (test code = CL) 104 mmol/L 101-109 N CARBON DIOXIDE (test code = CO2) 24.7 mmol/L 21-32 N ANION GAP (test code = GAP) 13 mmol/L 10-20 N GLUCOSE (test code = GLU) 291 mg/dL 74-106 H BLOOD UREA NITROGEN (test code = BUN) 11 mg/dL 3-21 N GLOMERULAR FILTRATION RATE (test code = GFR) > 60 mL/min >=60 Estimated GFR by using Modified MDRD formula.Chronic kidney disease is defined as either kidney damageor GFR <60 mL/min/1.73 m2 for >3 months. CREATININE (test code = CREAT) 0.75 mg/dL 0.55-1.3 N BUN/CREATININE RATIO (test code = BUN/CREA) 14.7 10-20 N CALCIUM (test code = CA) 9.1 mg/dL 8.4-10.2 N HEPATIC FUNCTION [id number] 17:45:00* Test Item Value Reference Range Interpretation Comments TOTAL PROTEIN (test code = PROT) gram/dL 6.4-8.2 ALBUMIN (test code = ALB) g/dL 3.4-5.0 GLOBULIN (test code = GLOB) g/dL 2.7-4.2 ALBUMIN/GLOBULIN RATIO (test code = A/G) 0.75-1.50 BILIRUBIN TOTAL (test code = BILT) mg/dL 0.2-1.2 BILIRUBIN DIRECT (test code = BILD) mg/dL 0.0-0.20 SGOT/AST (test code = AST) IUnit/L 15-37 SGPT/ALT (test code = ALT) U/L 10-69 ALKALINE PHOSPHATASE TOTAL (test code = ALKP) IUnit/L 45-117 [id number] 17:45:00* Test Item Value Reference Range Interpretation Comments LIPASE (test code = LIP) Unit/L 144-286 HCG SERUM [id number] 17:45:00* Test Item Value Reference Range Interpretation Comments HCG SERUM QUAL (test code = HCGQL) NEGATIVE NEGATIVE This HCGQL test is NOT applicable for MALE patients.Check with nurse about probable order error.If Tumor Marker Test needed, nurse should order test "HCGTU"(Test #550.92053) [id number] 17:45:00* Test Item Value Reference Range Interpretation Comments TROPONIN-I (test code = TROPI) ng/mL 0-0.045 URINALYSIS [id number] 17:42:00* Test Item Value Reference Range Interpretation Comments UA COLOR (test code = COLU) YELLOW YELLOW UA APPEARANCE (test code = APPU) SLIGHT HAZY CLEAR A UA GLUCOSE DIPSTICK (test code = DGLUU) 1000 (3+) mg/dL NEGATIVE A UA BILIRUBIN DIPSTICK (test code = BILU) NEGATIVE mg/dL NEGATIVE UA KETONE DIPSTICK (test code = KETU) neg mg/dL NEGATIVE UA SPECIFIC GRAVITY (test code = SGU) 1.015 1.001-1.035 UA BLOOD DIPSTICK (test code = BEULAH) neg Nhan/uL NEGATIVE UA PH DIPSTICK (test code = LEONIE) 5.0 5.0-8.0 UA PROTEIN DIPSTICK (test code = PROU) neg mg/dL Neg-15 UA UROBILINIOGEN DIPSTICK (test code = URO) norm mg/dL 0.0-0.2 UA NITRITE DIPSTICK (test code = ARTHUR) NEGATIVE NEGATIVE UA LEUKOCYTE ESTERASE DIPSTICK (test code = LEUU) neg uL NEGA TIVE UA WBC (test code = WBCU) per HPF 0-5 UA RBC (test code = RBCU) per HPF 0-5 UA EPITHELIAL CELLS (test code = EPIU) per HPF Few UA BACTERIA (test code = BACU) per HPF NONE Urine Source? Clean CatchBASIC METABOLIC [id number] 17:41:00* Test Item Value Reference Range Interpretation Comments SODIUM (test code = NA) 138 mmol/L 136-145 N POTASSIUM (test code = K) 3.8 mmol/L 3.5-5.1 N CHLORIDE (test code = CL) 104 mmol/L 101-109 N CARBON DIOXIDE (test code = CO2) 24.7 mmol/L 21-32 N ANION GAP (test code = GAP) 13 mmol/L 10-20 N GLUCOSE (test code = GLU) 291 mg/dL 74-106 H BLOOD UREA NITROGEN (test code = BUN) 11 mg/dL 3-21 N GLOMERULAR FILTRATION RATE (test code = GFR) > 60 mL/min >=60 Estimated GFR by using Modified MDRD formula.Chronic kidney disease is defined as either kidney damageor GFR <60 mL/min/1.73 m2 for >3 months. CREATININE (test code = CREAT) 0.75 mg/dL 0.55-1.3 N BUN/CREATININE RATIO (test code = BUN/CREA) 14.7 10-20 N CALCIUM (test code = CA) 9.1 mg/dL 8.4-10.2 N HEPATIC FUNCTION [id number] 17:41:00* Test Item Value Reference Range Interpretation Comments TOTAL PROTEIN (test code = PROT) gram/dL 6.4-8.2 ALBUMIN (test code = ALB) g/dL 3.4-5.0 GLOBULIN (test code = GLOB) g/dL 2.7-4.2 ALBUMIN/GLOBULIN RATIO (test code = A/G) 0.75-1.50 BILIRUBIN TOTAL (test code = BILT) mg/dL 0.2-1.2 BILIRUBIN DIRECT (test code = BILD) mg/dL 0.0-0.20 SGOT/AST (test code = AST) IUnit/L 15-37 SGPT/ALT (test code = ALT) U/L 10-69 ALKALINE PHOSPHATASE TOTAL (test code = ALKP) IUnit/L 45-117 [id number] 17:41:00* Test Item Value Reference Range Interpretation Comments LIPASE (test code = LIP) Unit/L 144-286 HCG SERUM [id number] 17:41:00* Test Item Value Reference Range Interpretation Comments HCG SERUM QUAL (test code = HCGQL) NEGATIVE [id number] 17:41:00* Test Item Value Reference Range Interpretation Comments TROPONIN-I (test code = TROPI) ng/mL 0-0.045 CBC W/O [id number] 17:35:00* Test Item Value Reference Range Interpretation Comments WHITE BLOOD CELL (test code = WBC) 7.7 K/mm3 4.5-12.5 N RED BLOOD CELL (test code = RBC) 4.59 mill/mm3 3.7-5.2 N HEMOGLOBIN (test code = HGB) 13.7 gram/dL 11.5-15.5 N HEMATOCRIT (test code = HCT) 39.8 % 36.0-46.0 N MEAN CELL VOLUME (test code = MCV) 86.7 fL 80-98 N MEAN CELL HGB (test code = MCH) 29.8 picogram 27.0-33.0 N MEAN CELL HGB CONCETRATION (test code = MCHC) 34.4 gram/dL 33.0-36. 0 N RED CELL DISTRIBUTION WIDTH (test code = RDW) 12.6 % 11.6-16. 2 N RED CELL DISTRIBUTION WIDTH SD (test code = RDW-SD) 39.9 fL 37 .0-51.0 N PLATELET COUNT (test code = PLT) 278 K/mm3 150-450 N MEAN PLATELET VOLUME (test code = MPV) 10.0 fL 6.7-11.0 N SHOULDER RIGHT [id number] 16:37:00 [facility] [address] [place] [address] Patient Name: DILMA BARNARD MR #: [id number] : 1970 Age/Sex: 49/F Req #: [id number] Adm Physician: Ordered by: MABLE ANTONY MD Report #: [id number] Location: [facility] Room/Bed: Procedure: [id number] DX/ OULDER RIGHT COMPLETE Exam Date: 05/28/19 Exam Time: 1510 REPORT STATUS: Signed Right shoulder, 2 views Clinical indication: Right shoulder pain Comparison: None Findings: 2 views of the right shoulder were obtained. There is no radiographic evidence of acute fracture or dislocation. Glenohumeral and acromioclavicular joints are intact. The visualized portions of the right lung are clear. Impression: Normal right shoulder radiographs. Signed by: Russel Cerda MD on 05/28/2019 4:40 PM Dictated By: RUSSEL CERDA MD 1640 Transcribed By: MONSERRAT on 05/28/19 1640 COPY TO: MABLE ANTONY MD Bedside [id number] 20:31:00* Test Item Value Reference Range Interpretation Comments Bedside Glucose (test code = 06823-7) 175 70-120 H Meter ID: [id number] [facility] 2019-[facility]29 13:58:00 [facility] [address] [address] Patient Name: DILMA BARNARD MR #: [id number] : 1970 Age/Sex: 49/F Req #: [id number] Adm Physician: MABLE ANTONY MD Ordered by: ARACELIS YEUNG M.D. Report #: [id number] Location: ICU Room/Bed: ICU [facility] Procedure: MRI/MRI BRAIN WO Exam Date: Exam Time: REPORT STATUS: Signed EXAMINATION: MRI of the brain without contrast. HISTORY: Left-sided weakness, paresthesias, f acial droop since one hour before arrival Acute cerebrovascular accident COM PARISON: Head CT 03/27/2019 TECHNIQUE: Sagittal T2; axial DWI, T2, FLAIR, T1-IR , T2 gradient echo; coronal FLAIR. IMAGE QUALITY: Adequate. FINDIN GS: Parenchyma: 1. No abnormal signal intensity 2. No mass, hemor rhage, acute or chronic infarcts. Skull: Unremarkable. V essels: Expected flow voids present in the major arteries and dural sinuses. Extra-axial spaces: No abnormal signal intensity or mass effect. Br ain volume: Within normal limits for age. Ventricles: No hydrocephalus or displacement. Foramen magnum: Unremarkable. Sella: Enlarged janna la, partially empty, mostly CSF filled. Paranasal / mastoid sinuses: No s ignificant inflammatory disease. IMPRESSION: No intracranial abnormali ties, particularly no acute infarcts. Signed by: Dr. Tatiana Wilson M.D. on 2:06 PM Dictated By: TATIANA WILSON MD 05 Transcribed By: MONSERRAT on 03/29/191405 Judy OPY TO: ARACELIS YEUNG MD Triglycerides [id number] 08:48:00* Test Item Value Reference Range Interpretation Comments Triglycerides Level (test code = 2571-8) 128 0-149 [facility] HospitalCholesterol Safcq9623-23-39 08:48:00* Test Item Value Reference Range Interpretation Comments Cholesterol Level (test code = 2093-3) 134 0-199 Less than 200 mg/dL Low Prjk497 - 239 mg/dL Borderline Hffd289 m g/dl and greater High Risk [facility] HospitalLDL Pbjzjlprlbr8668-95-77 08:48:00* Test Item Value Reference Range Interpretation Comments LDL Cholesterol (test code = 2089-1) 67 60-130 [facility] HospitalHDL Akuzpyaogpu9550-90-52 08:48:00* Test Item Value Reference Range Interpretation Comments HDL Cholesterol (test code = 2085-9) 41 40-60 [facility] HospitalCholesterol/HDL Orxnu7672-56-55 08:48:00 * Test Item Value Reference Range Interpretation Comments Cholesterol/HDL Ratio (test code = 9830-1) 3.3 3.0-3.6 [facility] HospitalTriglycerides Mozol4099-07-78 08:48:00* Test Item Value Reference Range Interpretation Comments Triglycerides Level (test code = 2571-8) 128 0-149 [facility] HospitalCholesterol Dvqhd7247-54-95 08:48:00* Test Item Value Reference Range Interpretation Comments Cholesterol Level (test code = 2093-3) 134 0-199 Less than 200 mg/dL Low Wjkq074 - 239 mg/dL Borderline Bfgj731 m g/dl and greater High Risk [facility] HospitalLDL Kctubjhegmp5730-35-34 08:48:00* Test Item Value Reference Range Interpretation Comments LDL Cholesterol (test code = 2089-1) 67 60-130 [facility] HospitalHDL Mvngczqeyea0974-33-67 08:48:00* Test Item Value Reference Range Interpretation Comments HDL Cholesterol (test code = 2085-9) 41 40-60 [facility] HospitalCholesterol/HDL Badfv6411-60-95 08:48:00 * Test Item Value Reference Range Interpretation Comments Cholesterol/HDL Ratio (test code = 9830-1) 3.3 3.0-3.6 [facility] HospitalHemoglobin A1c Xbyjncz8967-70-60 08:42:00 * Test Item Value Reference Range Interpretation Comments Hemoglobin A1c Percent (test code = Hemoglobin A1c Percent) 7.9 4.0-7.0 H [facility] HospitalHemoglobin A1c Nvrwbpt0842-92-07 08:42:00 * Test Item Value Reference Range Interpretation Comments Hemoglobin A1c Percent (test code = Hemoglobin A1c Percent) 7.9 4.0-7.0 H [facility] HospitalCHEST SINGLE (PORTABLE)2019-03-29 07:32:00 [place] [address] Patient Name: DILMA BARNARD MR #: [id number] : 1970 Age/Sex: 49/F Req #: [id number] Adm Physician: MABLE ANTONY MD Ordered by: KACIE MCBRIDE MD Report #: [id number] Location: ICU Room/Bed: [place] [address] Procedure: [id number] DX/CHEST SINGLE (PORTABLE) Exam Date: 03/29/19 Exam Time: 0620 REPORT STATUS: Signed EXAMINATION: CHEST SINGLE (PORTABLE) INDICATION: SOB. COMPARISON: Chest radiograph 03/28/2019. FINDINGS: TUBES and LINES: None. LUNGS: Low lung volumes. Mild central vascular congestion. Patchy bibasilar opacity, likely atelectasis. There is no evidence of lobar pneumonia or pulmo nary edema. PLEURA: No pleural effusion or pneumothorax. HEART AND M EDIASTINUM: The cardiomediastinal silhouette is unremarkable. BONES AN D SOFT TISSUES: No acute osseous abnormality. UPPER ABDOMEN: No free air under the diaphragm. IMPRESSION: No acute radiographic abnormality. Signed by: Dr. Yadi Dan MD on 03/29/2019 7:40 AM Dictated By: RED DAN MD 9 Transcribe d By: MONSERRAT on 03/29/19739 COPY TO: KACIE MCBRIDE MD Sodium Peigt2926-79-45 06:23:00* Test Item Value Reference Range Interpretation Comments Sodium Level (test code = 2951-2) 141 136-145 [facility] HospitalPotassium Bywlo7516-38-50 06:23:00* Test Item Value Reference Range Interpretation Comments Potassium Level (test code = 2823-3) 3.8 3.5-5.1 [facility] HospitalChloride Ugvgs0548-07-95 06:23:00* Test Item Value Reference Range Interpretation Comments Chloride Level (test code = 2075-0) 111 98-107 H [facility] HospitalCarbon Dioxide Ptqql1399-29-96 06:23:00* Test Item Value Reference Range Interpretation Comments Carbon Dioxide Level (test code = 2028-9) 22 22-29 [facility] HospitalAnion Zub4522-96-98 06:23:00* Test Item Value Reference Range Interpretation Comments Anion Gap (test code = 96565-2) 11.8 8-16 [facility] HospitalBlood Urea Ygxsugro4131-29-29 06:23:00* Test Item Value Reference Range Interpretation Comments Blood Urea Nitrogen (test code = 3094-0) 16 7-26 [facility] HospitalCreatinine2019-09-20 06:23:00* Test Item Value Reference Range Interpretation Comments Creatinine (test code = 2160-0) 0.66 0.57-1.11 [facility] HospitalBUN/Creatinine Aqsxx4029-26-28 06:23:00* Test Item Value Reference Range Interpretation Comments BUN/Creatinine Ratio (test code = 3097-3) 24 6-25 [facility] HospitalEstimat Glomerular Filtration Rate 2019-03-29 06:23:00* Test Item Value Reference Range Interpretation Comments Estimat Glomerular Filtration Rate (test code = 674193121) > 60 >60 Ranges were taken from the National Kidney Disease Education Program and the [employer] [facility] literature.Reference ranges:60 or greater: Zzvehn43-19 ( for 3 consecutive months): Chronic kidney disease 15 or less: Kidney failureCHI [facility] TexasGlucose Djsuo9100-57-81 06:23:00* Test Item Value Reference Range Interpretation Comments Glucose Level (test code = EAB3349) 123 74-118 H [facility] HospitalCalcium Ihanf4226-65-70 06:23:00* Test Item Value Reference Range Interpretation Comments Calcium Level (test code = 72997-5) 9.7 8.4-10.2 [facility] HospitalTotal Asmppuiyj0059-24-03 06:23:00* Test Item Value Reference Range Interpretation Comments Total Bilirubin (test code = 1975-2) 0.9 0.2-1.2 [facility] HospitalAspartate Amino Transf (AST/SGOT) 2019-03-29 06:23:00* Test Item Value Reference Range Interpretation Comments Aspartate Amino Transf (AST/SGOT) (test code = Aspartate Amino Transf (AST/SGOT)) 21 5-34 [facility] HospitalAlanine Aminotransferase (ALT/SGPT) 2019-03-29 06:23:00* Test Item Value Reference Range Interpretation Comments Alanine Aminotransferase (ALT/SGPT) (test code = 1742-6) 26 0-55 [facility] HospitalTotal Iycwhnv3835-47-06 06:23:00* Test Item Value Reference Range Interpretation Comments Total Protein (test code = 2885-2) 6.5 6.5-8.1 [facility] HospitalAlbumin2019-09-20 06:23:00* Test Item Value Reference Range Interpretation Comments Albumin (test code = 1751-7) 3.3 3.5-5.0 L [facility] HospitalGlobulin2019-09-20 06:23:00* Test Item Value Reference Range Interpretation Comments Globulin (test code = 52698-5) 3.2 2.3-3.5 [facility] HospitalAlbumin/Globulin Ksnvv4546-91-58 06:23:00 * Test Item Value Reference Range Interpretation Comments Albumin/Globulin Ratio (test code = 1759-0) 1.0 0.8-2.0 [facility] HospitalAlkaline Xjghkfzxdxu4292-80-80 06:23:00* Test Item Value Reference Range Interpretation Comments Alkaline Phosphatase (test code = 6768-6) 106 40-150 [facility] HospitalWhite Blood Fikxz6999-20-53 05:34:00* Test Item Value Reference Range Interpretation Comments White Blood Count (test code = 6690-2) 7.53 4.8-10.8 [facility] HospitalRed Blood Pmcjt8343-60-11 05:34:00* Test Item Value Reference Range Interpretation Comments Red Blood Count (test code = 789-8) 4.23 3.6-5.1 [facility] HospitalHemoglobin2019-09-20 05:34:00* Test Item Value Reference Range Interpretation Comments Hemoglobin (test code = 63893-6) 12.7 12.0-16.0 [facility] HospitalHematocrit2019-09-20 05:34:00* Test Item Value Reference Range Interpretation Comments Hematocrit (test code = 4544-3) 37.9 34.2-44.1 [facility] HospitalMean Corpuscular Kqkayf7922-09-94 05:34:00* Test Item Value Reference Range Interpretation Comments Mean Corpuscular Volume (test code = 787-2) 89.6 81-99 [facility] HospitalMean Corpuscular Netsyvzmid3094-39-20 05:34:00* Test Item Value Reference Range Interpretation Comments Mean Corpuscular Hemoglobin (test code = 785-6) 30.0 28-32 [facility] HospitalMean Corpuscular Hemoglobin Concent 2019-03-29 05:34:00* Test Item Value Reference Range Interpretation Comments Mean Corpuscular Hemoglobin Concent (test code = 786-4) 33.5 31-35 [facility] HospitalRed Cell Distribution Dbkka1552-72-34 05:34:00* Test Item Value Reference Range Interpretation Comments Red Cell Distribution Width (test code = 37831-6) 12.8 11.7 -14.4 [facility] HospitalPlatelet Jggki8390-37-52 05:34:00* Test Item Value Reference Range Interpretation Comments Platelet Count (test code = 777-3) 282 140-360 [facility] HospitalNeutrophils (%) (Auto)2019-03-29 05:34:00 * Test Item Value Reference Range Interpretation Comments Neutrophils (%) (Auto) (test code = 15462-8) 59.7 38.7-80.0 [facility] HospitalLymphocytes (%) (Auto)2019-03-29 05:34:00 * Test Item Value Reference Range Interpretation Comments Lymphocytes (%) (Auto) (test code = 736-9) 30.1 18.0-39.1 [facility] HospitalMonocytes (%) (Auto)2019-03-29 05:34:00* Test Item Value Reference Range Interpretation Comments Monocytes (%) (Auto) (test code = 5905-5) 6.8 4.4-11.3 [facility] HospitalEosinophils (%) (Auto)2019-03-29 05:34:00 * Test Item Value Reference Range Interpretation Comments Eosinophils (%) (Auto) (test code = 713-8) 2.5 0.0-6.0 [facility] HospitalBasophils (%) (Auto)2019-03-29 05:34:00* Test Item Value Reference Range Interpretation Comments Basophils (%) (Auto) (test code = 706-2) 0.5 0.0-1.0 [facility] HospitalIM GRANULOCYTES %2019-03-29 05:34:00* Test Item Value Reference Range Interpretation Comments IM GRANULOCYTES % (test code = IM GRANULOCYTES %) 0.4 0.0- 1.0 [facility] HospitalNeutrophils # (Auto)2019-03-29 05:34:00* Test Item Value Reference Range Interpretation Comments Neutrophils # (Auto) (test code = 751-8) 4.5 2.1-6.9 [facility] HospitalLymphocytes # (Auto)2019-03-29 05:34:00* Test Item Value Reference Range Interpretation Comments Lymphocytes # (Auto) (test code = 58891-7) 2.3 1.0-3.2 [facility] # (Auto)2019-03-29 05:34:00* Test Item Value Reference Range Interpretation Comments Monocytes # (Auto) (test code = 742-7) 0.5 0.2-0.8 [facility] HospitalEosinophils # (Auto)2019-03-29 05:34:00* Test Item Value Reference Range Interpretation Comments Eosinophils # (Auto) (test code = 711-2) 0.2 0.0-0.4 [facility] HospitalBasophils # (Auto)2019-03-29 05:34:00* Test Item Value Reference Range Interpretation Comments Basophils # (Auto) (test code = 704-7) 0.0 0.0-0.1 [facility] HospitalAbsolute Immature Granulocyte (auto 2019-03-29 05:34:00* Test Item Value Reference Range Interpretation Comments Absolute Immature Granulocyte (auto (verona t code = Absolute Immature Granulocyte (auto) 0.03 0-0.1 [facility] HospitalCT ABDOMEN/PELVIS [id number] 21:53:00 [place] [address] Patient Name: DILMA BARNARD MR #: [id number] : 1970 Age/Sex: 49/F Req #: [id number] Adm Physician: MABLE ANTONY MD Ordered by: MABLE ANTONY MD Report #: [id number] Location: [facility]/Bed: [place] [address] Procedure: [id number] CT/ CT ABDOMEN/PELVIS WO Exam Date: 03/28/19 Exam Time: 2127 REPORT STATUS: Signed EXAMI NATION: CT of the abdomen and pelvis without contrast. TECHNIQUE: Spiral C T images of the abdomen and pelvis were performed from the lung bases to the l karol trochanters. No intravenous contrast was given as patient already recei alison intravenous contrast for CTA brain performed same day. Coronal and sagitt al reformatted images were obtained. COMPARISON: None. CLINICAL HISTO RY:Left flank pain DISCUSSION: ABSENCE OF INTRAVENOUS CONTRAST DECREAS ES SENSITIVITY FOR DETECTION OF FOCAL LESIONS AND VASCULAR PATHOLOGY. ABD OMEN/PELVIS: LOWER THORAX: Unremarkable. HEPATOBILIARY: Diffuse hepat ic steatosis. No focal lesions. No intra or extrahepatic biliary ductal dilat ion. GALLBLADDER: Cholecystectomy clips. SPLEEN: No splenomegaly. PANCREAS: No focal masses or ductal dilatation. ADRENALS: No adrenal nodules. KIDNEYS/URETERS: Contrast is noted in the collecting systems, reema l pelves, portions of the ureters and bladder, which obscure potential calculi . No definite renal calculi. No hydronephrosis or obstruction. No contour ab normalities. PELVIC ORGANS/BLADDER: Bladder is full of contrast. No focal f illing defect is identified. Uterus is absent. No adnexal masses. PERITON EUM/RETROPERITONEUM: No free air or fluid. LYMPH NODES: No intra-abdominal, retroperitoneal, pelvic or inguinal lymphadenopathy. VESSELS: Grossly unr emarkable for noncontrast exam. GI TRACT: No bowel dilation or evidence of obstruction. Descending and sigmoid colon diverticulosis, without diverticulit is. Appendix is identified and normal in caliber. BONES AND SOFT TISSUES: No aggressive medications. Degenerative disc changes in the lumbosacral spine. Small fat-containing abdominal hernia. Soft tissues are otherwise unremarkab le. IMPRESSION: 1. Limited exam, as contrast from prior CTA brain is noted in the renal collecting systems, renal pelves, portions of the ureter s and bladder, which obscure potential calculi. No definite renal calculi with in these limitations, hydronephrosis or obstruction. 2. Diffuse hepatic s teatosis. 3. Descending and sigmoid colon diverticulosis, without diverticulit is. Signed by: Dr. Les Fried M.D. on 03/28/2019 9:59 PM Dict ated By: LES FRIED MD 58 COPY TO: CORAL ANTONY MD CTA [id number] 12:59:00 [place] [address] Patient Name: DILMA BARNARD MR #: [id number] : 1970 Age/Sex: 49/F Req #: [id number] Adm Physician: Ordered by: KACIE MCBRIDE MD Report #: [id number] Location: ER Room/Bed: Procedure: [id number] CT /CTA NECK Exam Date: 03/28/19 Exam Time: 1200 REPORT STATUS: Signed Examination: Cer vical and Intracranial CT Angiogram with Contrast History: Acute left hemipare sis. Comparison studies: None Technique: Axial images were obtained fr om the thoracic inlet. Coronal and sagittal images reconstructed from the axi al data. Intravenous contrast: 100 mL of Isovue 300. Degree of stenosis at t he carotid bulbs, if present, will be calculated using NASCET criteria where t he smallest diameter at the location of stenosis is compared to the diameter o f the more distal non-diseased vessel lumen. Computer generated maximum intens ity projection and 3D images of the cervical and intracranial anterior and pos terior circulations were performed on a separate workstation. Dose modulatio n, iterative reconstruction, and/or weight based adjustment of the mA/kV was u tilized to reduce the radiation dose to as low as reasonably achievable. Findings: CTA neck: Aortic arch and major vessels: Patent. Common ca rotid arteries: Patent Cervical carotid bifurcations: Right: Patent. Left :Patent. Internal carotid arteries: Right: Patent. Cervical loop. Left: Patent. Cervical loop. Vertebral arteries: Patent. CTA head: Internal carotid arteries: Patent. Anterior cerebral arteries: [place] nt A1 and A2 segments. Middle cerebral arteries: Patent M1 and M2 segment s. Posterior cerebral arteries: Patent P1 and P2 segments. Vertebro- basilar system: Patent. Anatomical variants: Anterior communicating art nhan :Present Posterior communicating arteries: Present and patent bilaterally. Vertebral arteries: Codominant. IMPRESSION: No cervical or intracra nial arterial stenosis or occlusion or vascular malformation. Signed by: Dr. Lauren Ernst M.D. on 03/28/2019 12:59 PM Dictated By: LAUREN SIEGEL MD 1259 COPY TO: ROSEMARIE MCBRIDE MD Troponin [id number] 12:51:00* Test Item Value Reference Range Interpretation Comments Troponin I (test code = VKR7252) 0.006 0-0.300 [facility] HospitalTroponin [id number] 12:51:00* Test Item Value Reference Range Interpretation Comments Troponin I (test code = PRD1958) 0.006 0-0.300 [facility] HospitalCHEST SINGLE (PORTABLE)2019-03-28 12:49:00 [place] [address] Patient Name: DILMA BARNARD MR #: [id number] : 1970 Age/Sex: 49/F Req #: [id number] Adm Physician: Ordered by: KACIE MCBRIDE MD Report #: [id number] Location: ER Room/Bed: Procedure: [id number] DX /CHEST SINGLE (PORTABLE) Exam Date: Exam Time: REPORT STATUS: Signed Chest, 1 view, 03/28/2019. History: CVA. Comparison: None available. Fi ndings: The cardiomediastinal silhouette and pulmonary vasculature are within normal limits for a portable exam. There is no focal consolidation or pleural effusion. There are no acute osseous or soft tissue abnormalities. Impres simon: No acute cardiopulmonary abnormality. Signed by: David Howard on 03/28/2019 12:49 PM Dictated By: DAVID HOWARD MD 48 Transcribed By: MONSERRAT on 03/28/191248 COPY TO: KACIE MCBRIDE MD [facility] [id number] 12:36:00 [place] [address] Patient Name: DILMA BARNARD MR #: [id number] : 1970 Age/Sex: 49/F Req #: [id number] Adm Physician: Ordered by: KACIE MCBRIDE MD Report #: [id number] Location: ER Room/Bed: Procedure: [id number] CT /CTA BRAIN Exam Date: 03/28/19 Exam Time: 1200 REPORT STATUS: Signed Examination: Ce rvical and Intracranial CT Angiogram with Contrast History: Acute left hemipar esis. Comparison studies: None Technique: Axial images were obtained f rom the thoracic inlet. Coronal and sagittal images reconstructed from the ax ial data. Intravenous contrast: 100 mL of Isovue 300. Degree of stenosis at the carotid bulbs, if present, will be calculated using NASCET criteria where the smallest diameter at the location of stenosis is compared to the diameter of the more distal non-diseased vessel lumen. Computer generated maximum inten sity projection and 3D images of the cervical and intracranial anterior and po sterior circulations were performed on a separate workstation. Dose modulati on, iterative reconstruction, and/or weight based adjustment of the mA/kV was utilized to reduce the radiation dose to as low as reasonably achievable. Findings: CTA neck: Aortic arch and major vessels: Patent. Common c arotid arteries: Patent Cervical carotid bifurcations: Right: Patent. Left :Patent. Internal carotid arteries: Right: Patent. Cervical loop. Left: Patent. Cervical loop. Vertebral arteries: Patent. CTA head: Internal carotid arteries: Patent. Anterior cerebral arteries: Pat ent A1 and A2 segments. Middle cerebral arteries: Patent M1 and M2 segmen ts. Posterior cerebral arteries: Patent P1 and P2 segments. Vertebro -basilar system: Patent. Anatomical variants: Anterior communicating ar aime :Present Posterior communicating arteries: Present and patent bilaterally . Vertebral arteries: Codominant. IMPRESSION: No cervical or intracr anial arterial stenosis or occlusion or vascular malformation. Signed by: Dr. Lauren Ernst M.D. on 03/28/2019 12:43 PM Dictated By: LAUREN EPPERSON MD Electronically Signed By: LAUREN ALEXANDRE MD on 03/10 03/28 1243 Transcribed By: MONSERRAT on 03/28/19 1243 COPY TO: ALONZO MCBRIDE MD Prothrombin [id number] 12:17:00* Test Item Value Reference Range Interpretation Comments Prothrombin Time (test code = 5902-2) 12.2 11.9-14.5 [facility] HospitalProthromb Time International Ratio 2019-03-28 12:17:00* Test Item Value Reference Range Interpretation Comments Prothromb Time International Ratio (test code = 6301-6) 0.86 Oral Anticoagulant Therapy INR Values:1. Low Intensity Therapy 1.5 - 2.02 . Moderate Intensity Therapy 2.0 - 3.03. High Intensity Therapy(1) 2.5 - 3. 54. High Intensity Therapy(2) 3.0 - 4.05. Panic Value INR > 5.0 [facility] HospitalActivated Partial Thromboplast Time 2019-03-28 12:17:00* Test Item Value Reference Range Interpretation Comments Activated Partial Thromboplast Time (test code = 87462-8) 28.2 23.8-35.5 [facility] HospitalProthrombin [id number] 12:17:00* Test Item Value Reference Range Interpretation Comments Prothrombin Time (test code = 5902-2) 12.2 11.9-14.5 [facility] HospitalProthromb Time International Ratio 2019-03-28 12:17:00* Test Item Value Reference Range Interpretation Comments Prothromb Time International Ratio (test code = 6301-6) 0.86 Oral Anticoagulant Therapy INR Values:1. Low Intensity Therapy 1.5 - 2.02 . Moderate Intensity Therapy 2.0 - 3.03. High Intensity Therapy(1) 2.5 - 3. 54. High Intensity Therapy(2) 3.0 - 4.05. Panic Value INR > 5.0 [facility] HospitalActivated Partial Thromboplast Time 2019-03-28 12:17:00* Test Item Value Reference Range Interpretation Comments Activated Partial Thromboplast Time (test code = 18639-3) 28.2 23.8-35.5 [facility] HospitalGLUBED2019-06-08 17:34:00* Test Item Value Reference Range Interpretation Comments GLUBED (test code = GLUBED) 182 mg/dL 74-106 H Performed by certified dehydrating press operator at [facility] [id number] 11:54:00* Test Item Value Reference Range Interpretation Comments GLUBED (test code = GLUBED) 364 mg/dL 74-106 H Performed by certified dehydrating press operator at [facility] [id number] 07:40:00* Test Item Value Reference Range Interpretation Comments GLUBED (test code = GLUBED) 273 mg/dL 74-106 H Performed by certified dehydrating press operator at [facility] [id number] 04:05:00* Test Item Value Reference Range Interpretation Comments GLUBED (test code = GLUBED) 253 mg/dL 74-106 H Performed by certified dehydrating press operator at [facility] [id number] 17:36:00* Test Item Value Reference Range Interpretation Comments TROPONIN-I (test code = TROPI) <0.015 ng/mL 0-0.045 N [id number] 16:44:00* Test Item Value Reference Range Interpretation Comments GLUBED (test code = GLUBED) 228 mg/dL 74-106 H Performed by certified dehydrating press operator at [facility] - XR ABDOMEN AP 1 [id number] 11:49:00 FAX: Mable Tomas MD [phone] [place]: St: ADM FAX: Lara White MD [phone] Name: DILMA BARNARD [facility] : 1970 Age/S: 48/F [address] [facility] Unit #: [id number] Loc: V.3075 [place] [address] Phys: Lara Casiano MD Acct: [id number] Dis Date: Status: ADM IN PHONE #: [phone] Exam Date: 12/14/2018 1143 FAX #: [phone] Reason: KIDNEY STONE EXAMS: CPT CODE: [id number] XR ABDOMEN AP 1 V 16443 HISTORY: Kidney stone. COMPARISON: CT scan from . No bowel obstruction. Severe constipation. Calyceal st one in the left lower pole seen on the CT scan is not visible. No other pa thologic calcifications. Phleboliths in the left hemipelvis. IMPRESSION: No pathologic calcifications visible. Severe co nstipation. No bowel obstruction. at 1149 Reported and sign ed by: Km Delgado M.D. CC: Mable Antony MD; Lara Ramos MD Technologist: RT YVONNE(R) Trnscrd Date/Time/By: 12/14/2018 (1149) : By: [email or web address] Orig Print D/T: S: 12/14/2018 (2666) PAGE 1 Signed Report [id number] 11:37:00* Test Item Value Reference Range Interpretation Comments GLUBED (test code = GLUBED) 269 mg/dL 74-106 H Performed by certified dehydrating press operator at [facility] [id number] 07:48:00* Test Item Value Reference Range Interpretation Comments GLUBED (test code = GLUBED) 252 mg/dL 74-106 H Performed by certified dehydrating press operator at [facility] [id number] 07:42:00* Test Item Value Reference Range Interpretation Comments AMYLASE (test code = MARYLU) 46 Unit/L 25-115 N [id number] 07:42:00* Test Item Value Reference Range Interpretation Comments LIPASE (test code = LIP) 218 U/L 73.0-393.0 N BASIC METABOLIC [id number] 06:30:00* Test Item Value Reference Range Interpretation Comments SODIUM (test code = NA) 139 mmol/L 136-145 N POTASSIUM (test code = K) 3.9 mmol/L 3.5-5.1 N CHLORIDE (test code = CL) 109.0 mmol/L 98-107 H CARBON DIOXIDE (test code = CO2) 22.0 mmol/L 21-32 N ANION GAP (test code = GAP) 11.9 10-20 N GLUCOSE (test code = GLU) 272 mg/dL 74-106 H BLOOD UREA NITROGEN (test code = BUN) 9 mg/dL 7-18 N GLOMERULAR FILTRATION RATE (test code = GFR) > 60 mL/min >=60 Estimated GFR by using Modified MDRD formula.Chronic kidney disease is defined as either kidney damageor GFR <60 mL/min/1.73 m2 for >3 months. CREATININE (test code = CREAT) 0.40 mg/dL 0.55-1.02 L Note change in reference range due to change in reagent. BUN/CREATININE RATIO (test code = BUN/CREA) 22.5 10-20 H CALCIUM (test code = CA) 10.1 mg/dL 8.5-10.1 N CBC W/AUTO [id number] 06:11:00* Test Item Value Reference Range Interpretation Comments WHITE BLOOD CELL (test code = WBC) 7.3 K/mm3 4.5-12.5 N RED BLOOD CELL (test code = RBC) 4.50 mill/mm3 3.7-5.2 N HEMOGLOBIN (test code = HGB) 13.5 gram/dL 11.5-15.5 RESULT VERIFIED BY REPEAT ANALYSIS HEMATOCRIT (test code = HCT) 39.7 % 36.0-46.0 N MEAN CELL VOLUME (test code = MCV) 88.2 fL 80-98 N MEAN CELL HGB (test code = MCH) 30.0 picogram 27.0-33.0 N MEAN CELL HGB CONCETRATION (test code = MCHC) 34.0 gram/dL 33.0-36. 0 N RED CELL DISTRIBUTION WIDTH (test code = RDW) 13.1 % 11.6-16. 2 N RED CELL DISTRIBUTION WIDTH SD (test code = RDW-SD) 42.3 fL 37 .0-51.0 N PLATELET COUNT (test code = PLT) 250 K/mm3 150-450 N MEAN PLATELET VOLUME (test code = MPV) 10.7 fL 6.7-11.0 N NEUTROPHIL % (test code = NT%) 57.5 % 39.0-69.0 N IMMATURE GRANULOCYTE % (test code = IG%) 0.3 % 0.0-5.0 N LYMPHOCYTE % (test code = LY%) 34.2 % 25.0-55.0 N MONOCYTE % (test code = MO%) 5.8 % 0.0-10.0 N EOSINOPHIL % (test code = EO%) 1.9 % 0.0-5.0 N BASOPHIL % (test code = BA%) 0.3 % 0.0-1.0 N NUCLEATED RBC % (test code = NRBC%) 0.0 % 0-0 N NEUTROPHIL # (test code = NT#) 4.18 K/mm3 1.8-7.7 N IMMATURE GRANULOCYTE # (test code = IG#) 0.02 x10 3/uL 0-0.03 N LYMPHOCYTE # (test code = LY#) 2.48 K/mm3 1.0-5.0 N MONOCYTE # (test code = MO#) 0.42 K/mm3 0-0.8 N EOSINOPHIL # (test code = EO#) 0.14 K/mm3 0.0-0.5 N BASOPHIL # (test code = BA#) 0.02 K/mm3 0.0-0.2 N NUCLEATED RBC # (test code = NRBC#) 0.00 K/mm3 0.0-0.1 N BASIC METABOLIC [id number] 06:10:00* Test Item Value Reference Range Interpretation Comments SODIUM (test code = NA) 139 mmol/L 136-145 N POTASSIUM (test code = K) 3.9 mmol/L 3.5-5.1 N CHLORIDE (test code = CL) 109.0 mmol/L 98-107 H CARBON DIOXIDE (test code = CO2) mmol/L 21-32 ANION GAP (test code = GAP) 10-20 GLUCOSE (test code = GLU) mg/dL 74-106 BLOOD UREA NITROGEN (test code = BUN) mg/dL 7-18 GLOMERULAR FILTRATION RATE (test code = GFR) mL/min >=60 CREATININE (test code = CREAT) mg/dL 0.55-1.02 BUN/CREATININE RATIO (test code = BUN/CREA) 10-20 CALCIUM (test code = CA) mg/dL 8.5-10.1 [id number] 00:08:00* Test Item Value Reference Range Interpretation Comments TROPONIN-I (test code = TROPI) <0.015 ng/mL 0-0.045 N COMMENTS TO [employer] CUTTER FINISHER: COLLECT 3 HOURS AFTER PREVIOUS [id number] 21:48:00* Test Item Value Reference Range Interpretation Comments TROPONIN-I (test code = TROPI) <0.015 ng/mL 0-0.045 N COMMENTS TO [employer] CUTTER FINISHER: COLLECT 3 HOURS AFTER PREVIOUS [id number] 21:09:00* Test Item Value Reference Range Interpretation Comments GLUBED (test code = GLUBED) 299 mg/dL 74-106 H Performed by certified dehydrating press operator at [facility] - CTA [id number] 15:14:00 Name: DILMA BARNARD [facility] : 1970 Age/S: 48 / F [facility] Unit #: [id number] Loc: [place] [address] Phys: Hermann River DO Acct: [id number] Dis Date: Status: ADM IN PHONE #: [phone] Exam Date: 12/13/2018 1432 FAX #: [phone] Reason: chest pain/left sided numbness EXAMS: CPT CODE: [id number] CTA CHEST 15492 REASON FOR EXAM: chest pain/left sided numbness [...] and signed by: Edinson Kasper M.D. CC: Mable Antony MD; Hermann River DO Technologist:Herman Narvaez RT(R)(CT) CTDI: DLP: Trnscb Date/Time: 12/13/2018 (4984) Shaina Orig Print D/T: S: 12/13/2018 (1233) PAGE 1 Signed Report TROPONIN-I 2018-12-13 13:52:00* Test Item Value Reference Range Interpretation Comments TROPONIN-I (test code = TROPI) <0.015 ng/mL 0-0.045 N PROTHROMBIN [id number] 13:36:00* Test Item Value Reference Range Interpretation Comments PROTHROMBIN TIME PATIENT (test code = PTP) 10.2 seconds 9.0-14.0 N INTERNATIONAL NORMAL RATIO (test code = INR) 0.9 0.8-1.2 N The therapeutic range for oral anticoagulant therapy [...] (2.5-3.5) IS PATIENT ON ANTICOAGULANTS? NTHROMBOPLASTIN TIME [id number] 13:36:00* Test Item Value Reference Range Interpretation Comments THROMBOPLASTIN TIME PARTIAL (test code = PTT) 31.4 seconds 25.0-36. 5 N IS PATIENT ON ANTICOAGULANTS? N- CT HEAD/BRAIN W/O [id number] 13:29:00 Name: DILMA BARNARD [facility] : 1970 Age/S: 48 / F [address] [facility] Unit #: [id number] Loc: [facility] [place] [address] Phys: Hermann River DO Acct: [id number] Dis Date: Status: REG ER PHONE #: [phone] Exam Date: 12/13/2018 1303 FAX #: [phone] Reason: left sided numbness EXAMS: CPT CODE: [id number] CT HEAD/BRAIN W/O CONT 16117 HISTORY: Left-sided numbn ess. COMPARISON: CT head [...] and signed by: Km Delgado M.D. CC: Mable Antony MD; Hermann River DO Technologist:RT Radha(R),CT CTDI: DLP: Trnscb Date/Time: 12/13/2018 (1329) t.SDR.TH4 Orig Print D/T: S: 12/13/2018 (9937) PAGE 1 Signed Report TROPONIN I [id number] 13:15:00* Test Item Value Reference Range Interpretation Comments TROPONIN I RAPID (test code = TROPIRAP) 0.00 ng/mL <0.08 Please Note New Reference Range 0.00-0.079 ng/mL - Negative>or= 0.08 ng/mL - Positive The use of serial sampling and testing protocol is arecommended practice.An elevated troponin level alone is often not sufficient fordiagnosis of myocardial infarction. Troponin results obtained by different assays may vary.Evaluation of the extent of myocardial damage based onincrease of troponin would be valid only if similarmethodology is used. [id number] 13:02:00* Test Item Value Reference Range Interpretation Comments GLUBED (test code = GLUBED) 272 mg/dL 74-106 H Performed by certified dehydrating press operator at [facility] URINALYSIS [id number] 10:20:00* Test Item Value Reference Range Interpretation Comments UA COLOR (test code = COLU) Light-Yellow YELLOW UA APPEARANCE (test code = APPU) CLEAR CLEAR UA GLUCOSE DIPSTICK (test code = DGLUU) >1000 (4+) mg/dL NEGATIVE UA BILIRUBIN DIPSTICK (test code = BILU) NEGATIVE mg/dL NEGATIVE UA KETONE DIPSTICK (test code = KETU) 20 (1+) mg/dL NEGATIVE A UA SPECIFIC GRAVITY (test code = SGU) 1.045 1.001-1.035 UA BLOOD DIPSTICK (test code = BEULAH) Negative mg/dL NEGATIVE UA PH DIPSTICK (test code = LEONIE) 5.5 5.0-8.0 UA PROTEIN DIPSTICK (test code = PROU) NEGATIVE mg/dL NEGATIVE UA UROBILINIOGEN DIPSTICK (test code = URO) Normal mg/dL NEGATIVE UA NITRITE DIPSTICK (test code = ARTHUR) NEGATIVE NEGATIVE UA LEUKOCYTE ESTERASE W REFLEX (test code = LEUUR) NEGATIVE Jose/uL NEGATIVE UA WBC (test code = WBCU) 0-5 per HPF 0-5 UA EPITHELIAL CELLS (test code = EPIU) MANY per HPF FEW UA BACTERIA (test code = BACU) FEW #/HPF NONE UA YEAST (test code = YEASTU) MANY #/HPF NONE Urine Source? Clean CatchBASIC METABOLIC [id number] 10:11:00* Test Item Value Reference Range Interpretation Comments SODIUM (test code = NA) 137 mmol/L 136-145 N POTASSIUM (test code = K) 3.9 mmol/L 3.5-5.1 N CHLORIDE (test code = CL) 106.0 mmol/L 98-107 N CARBON DIOXIDE (test code = CO2) 25.0 mmol/L 21-32 N ANION GAP (test code = GAP) 9.9 10-20 L GLUCOSE (test code = GLU) 376 mg/dL 74-106 H BLOOD UREA NITROGEN (test code = BUN) 12 mg/dL 7-18 N GLOMERULAR FILTRATION RATE (test code = GFR) > 60 mL/min >=60 Estimated GFR by using Modified MDRD formula.Chronic kidney disease is defined as either kidney damageor GFR <60 mL/min/1.73 m2 for >3 months. CREATININE (test code = CREAT) 0.70 mg/dL 0.55-1.02 N Note change in reference range due to change in reagent. BUN/CREATININE RATIO (test code = BUN/CREA) 17.1 10-20 N CALCIUM (test code = CA) 10.0 mg/dL 8.5-10.1 N [id number] 10:11:00* Test Item Value Reference Range Interpretation Comments TROPONIN-I (test code = TROPI) <0.015 ng/mL 0-0.045 N HEPATIC FUNCTION [id number] 10:11:00* Test Item Value Reference Range Interpretation Comments TOTAL PROTEIN (test code = PROT) 8.1 gram/dL 6.4-8.2 N ALBUMIN (test code = ALB) 4.1 g/dL 3.4-5.0 N GLOBULIN (test code = GLOB) 4.0 gram/dL 2.7-4.2 N ALBUMIN/GLOBULIN RATIO (test code = A/G) 1.0 0.75-1.50 N BILIRUBIN TOTAL (test code = BILT) 0.50 mg/dL 0.0-1.0 N BILIRUBIN DIRECT (test code = BILD) 0.15 mg/dL 0.0-0.20 N SGOT/AST (test code = AST) 13 IUnit/L 15-37 L SGPT/ALT (test code = ALT) 34 IUnit/L 12-78 N ALKALINE PHOSPHATASE TOTAL (test code = ALKP) 167 IUnit/L 45-117 H Note change in reference range due to change in reagent. BASIC METABOLIC [id number] 10:05:00* Test Item Value Reference Range Interpretation Comments SODIUM (test code = NA) 137 mmol/L 136-145 N POTASSIUM (test code = K) 3.9 mmol/L 3.5-5.1 N CHLORIDE (test code = CL) 106.0 mmol/L 98-107 N CARBON DIOXIDE (test code = CO2) mmol/L 21-32 ANION GAP (test code = GAP) 10-20 GLUCOSE (test code = GLU) mg/dL 74-106 BLOOD UREA NITROGEN (test code = BUN) mg/dL 7-18 GLOMERULAR FILTRATION RATE (test code = GFR) mL/min >=60 CREATININE (test code = CREAT) mg/dL 0.55-1.02 BUN/CREATININE RATIO (test code = BUN/CREA) 10-20 CALCIUM (test code = CA) 10.0 mg/dL 8.5-10.1 N [id number] 10:05:00* Test Item Value Reference Range Interpretation Comments TROPONIN-I (test code = TROPI) ng/mL 0-0.045 HCG SERUM [id number] 09:56:00* Test Item Value Reference Range Interpretation Comments HCG SERUM QUAL (test code = HCGQL) NEGATIVE NEGATIVE This HCGQL test is NOT applicable for MALE patients.Check with nurse about probable order error.If Tumor Marker Test needed, nurse should order test "HCGTU"(Test #[id number]) - CT ABD PELVIS W/O [id number] 09:55:00 Name: DILMA BARNARD [facility] : 1970 Age/S: 48 / F [address] [facility] Unit #: [id number] Loc: [place] [address] Phys: Hermann River DO Acct: [id number] Dis Date: Status: REG ER PHONE #: [phone] Exam Date: 12/13/2018 0934 FAX #: [phone] Reason: Right flank pain EXAMS: CPT CODE: [id number] CT ABD PELVIS W/O CONT 02783 HISTORY: Right flank pain. COMPARISON: CT scan [...] diverticulitis. Patient is post hysterectomy. The urin ruel bladder demonstrates small amount of air. Correlate [...] 1 Signed Report (CONTINUED) Name: Liat BARNARD [facility] : 1970 Age /S: 48 / F [address] [facility] Unit #: [id number] Loc: [place] [address] Phys: Hermann River DO Acct: [id number] Dis Date: Status: REG ER PHONE #: [phone] Exam Date: 12/13/2018933 FAX #: [phone] Reason: Right flank pain EXAMS: CPT CODE: [id number] CT ABD PELVIS W/O CONT 91927 <Continued> Normal appendix without bowel obstruction or colitis or diverticulitis or enteritis. Constipation. at 0955 Reported and signed by: Km Delgado M.D. CC: Mable Antony MD; Hermann River DO Technologist:Herman Narvaez RT(R)(CT) CTDI: DLP: Trnscb Date/Time: 12/13/2018 (954) [email or web address] Orig Print D/T: S: 12/13/2018 (957) PAGE 2 Signed Report CBC W/O [id number] 09:53:00* Test Item Value Reference Range Interpretation Comments WHITE BLOOD CELL (test code = WBC) 7.2 K/mm3 4.5-12.5 N RED BLOOD CELL (test code = RBC) 5.28 mill/mm3 3.7-5.2 H HEMOGLOBIN (test code = HGB) 16.1 gram/dL 11.5-15.5 H HEMATOCRIT (test code = HCT) 47.0 % 36.0-46.0 H MEAN CELL VOLUME (test code = MCV) 89.0 fL 80-98 N MEAN CELL HGB (test code = MCH) 30.5 picogram 27.0-33.0 N MEAN CELL HGB CONCETRATION (test code = MCHC) 34.3 gram/dL 33.0-36. 0 N RED CELL DISTRIBUTION WIDTH (test code = RDW) 12.7 % 11.6-16. 2 N PLATELET COUNT (test code = PLT) 261 K/mm3 150-450 N MEAN PLATELET VOLUME (test code = MPV) 10.4 fL 6.7-11.0 N - XR CHEST 1 [id number] 08:44:00 FAX: Mable Tomas MD [phone] [place]: St: [facility] FAX: Peter Ramirez NP [phone] Name: DILMA BARNARD [facility] : 1970 Age/S: 48/F [address] [facility] Unit #: [id number] Loc: [place] [address] Phys: Peter Ramirez NP Acct: [id number] Dis Date: Status: REG ER PHONE #: [phone] Exam Date: 12/13/2018 0835 FAX #: [phone] Reason: CHEST PAIN EXAMS: CPT CODE: [id number] XR CHEST 1 V 31171 HISTORY: Chest pain. COMPARISON: February 25, 2017. No acute infiltrates, effusion or congestion is noted. Suboptimal inspiration. Dependent changes. Cardiomegaly. IMPRESSION: No acute infiltrates, effusion or congestion. at 0844 Reported and signed by: Km Delgado M.D. CC: Mable Antony MD; Peter Ramirez NP Technologist: Viola Marino) Trnscrd Date/Time/By: 12/13/2018 (44) : By: [email or web address] Orig Print D/T: S: 12/13/2018 (3269) PAGE 1 Signed Report [id number] 08:16:00* Test Item Value Reference Range Interpretation Comments GLUBED (test code = GLUBED) 393 mg/dL 74-106 H Performed by certified dehydrating press operator at [facility] Creatine Kinase [id number] 14:10:00* Test Item Value Reference Range Interpretation Comments Creatine Kinase MB (test code = 89652-3) 0.90 0.00-5.00 [facility] O0701-00-97 14:10:00* Test Item Value Reference Range Interpretation Comments Troponin I (test code = 53806-2) 0.005 0-0.300 [facility] HospitalWhite Blood Isrin5312-66-32 14:06:00* Test Item Value Reference Range Interpretation Comments White Blood Count (test code = 6690-2) 8.40 4.8-10.8 [facility] HospitalRed Blood Gxscu7880-18-20 14:06:00* Test Item Value Reference Range Interpretation Comments Red Blood Count (test code = 789-8) 4.79 3.6-5.1 [facility] HospitalHemoglobin2018-02-08 14:06:00* Test Item Value Reference Range Interpretation Comments Hemoglobin (test code = 76779-6) 14.1 12.0-16.0 [facility] HospitalHematocrit2018-02-08 14:06:00* Test Item Value Reference Range Interpretation Comments Hematocrit (test code = 4544-3) 41.6 34.2-44.1 [facility] HospitalMean Corpuscular Tnvfff1225-48-25 14:06:00* Test Item Value Reference Range Interpretation Comments Mean Corpuscular Volume (test code = 787-2) 86.8 81-99 [facility] HospitalMean Corpuscular Jzstevrhka9160-34-60 14:06:00* Test Item Value Reference Range Interpretation Comments Mean Corpuscular Hemoglobin (test code = 785-6) 29.4 28-32 [facility] Hospital[facility] Corpuscular Hemoglobin Concent 2017-08-17 14:06:00* Test Item Value Reference Range Interpretation Comments Mean Corpuscular Hemoglobin Concent (test code = 786-4) 33.9 31-35 [facility] HospitalRed Cell Distribution [id number] 14:06:00* Test Item Value Reference Range Interpretation Comments Red Cell Distribution Width (test code = 12772-3) 13.1 11.7 -14.4 [facility] HospitalPlatelet Qmhfa4613-75-67 14:06:00* Test Item Value Reference Range Interpretation Comments Platelet Count (test code = 777-3) 289 140-360 [facility] HospitalNeutrophils (%) (Auto)2017-08-17 14:06:00 * Test Item Value Reference Range Interpretation Comments Neutrophils (%) (Auto) (test code = 37396-6) 52.0 38.7-80.0 [facility] HospitalLymphocytes (%) (Auto)2017-08-17 14:06:00 * Test Item Value Reference Range Interpretation Comments Lymphocytes (%) (Auto) (test code = 736-9) 40.5 18.0-39.1 H [facility] HospitalMonocytes (%) (Auto)2017-08-17 14:06:00* Test Item Value Reference Range Interpretation Comments Monocytes (%) (Auto) (test code = 5905-5) 5.2 4.4-11.3 [facility] HospitalEosinophils (%) (Auto)2017-08-17 14:06:00 * Test Item Value Reference Range Interpretation Comments Eosinophils (%) (Auto) (test code = 713-8) 1.9 0.0-6.0 [facility] HospitalBasophils (%) (Auto)2017-08-17 14:06:00* Test Item Value Reference Range Interpretation Comments Basophils (%) (Auto) (test code = 706-2) 0.2 0.0-1.0 [facility] HospitalIM GRANULOCYTES %2017-08-17 14:06:00* Test Item Value Reference Range Interpretation Comments IM GRANULOCYTES % (test code = IM GRANULOCYTES %) 0.2 0.0- 1.0 [facility] HospitalNeutrophils # (Auto)2017-08-17 14:06:00* Test Item Value Reference Range Interpretation Comments Neutrophils # (Auto) (test code = 751-8) 4.4 2.1-6.9 [facility] HospitalLymphocytes # (Auto)2017-08-17 14:06:00* Test Item Value Reference Range Interpretation Comments Lymphocytes # (Auto) (test code = 16663-7) 3.4 1.0-3.2 H [facility] HospitalMonocytes # (Auto)2017-08-17 14:06:00* Test Item Value Reference Range Interpretation Comments Monocytes # (Auto) (test code = 742-7) 0.4 0.2-0.8 [facility] HospitalEosinophils # (Auto)2017-08-17 14:06:00* Test Item Value Reference Range Interpretation Comments Eosinophils # (Auto) (test code = 711-2) 0.2 0.0-0.4 [facility] HospitalBasophils # (Auto)2017-08-17 14:06:00* Test Item Value Reference Range Interpretation Comments Basophils # (Auto) (test code = 704-7) 0.0 0.0-0.1 [facility] HospitalAbsolute Immature Granulocyte (auto 2017-08-17 14:06:00* Test Item Value Reference Range Interpretation Comments Absolute Immature Granulocyte (auto (verona t code = Absolute Immature Granulocyte (auto) 0.02 0-0.1 [facility] HospitalProthrombin Fpxc2571-09-81 14:06:00* Test Item Value Reference Range Interpretation Comments Prothrombin Time (test code = 5902-2) 11.7 11.9-14.5 L [facility] HospitalProthromb Time International Ratio 2017-08-17 14:06:00* Test Item Value Reference Range Interpretation Comments Prothromb Time International Ratio (test code = 6301-6) 0.82 Oral Anticoagulant Therapy INR Values:1. Low Intensity Therapy 1.5 - 2.02 . Moderate Intensity Therapy 2.0 - 3.03. High Intensity Therapy(1) 2.5 - 3. 54. High Intensity Therapy(2) 3.0 - 4.05. Panic Value INR > 5.0 [facility] HospitalActivated Partial Thromboplast Time 2017-08-17 14:06:00* Test Item Value Reference Range Interpretation Comments Activated Partial Thromboplast Time (test code = 87555-3) 26.9 23.8-35.5 [facility] Gxvou3802-52-32 13:59:00* Test Item Value Reference Range Interpretation Comments Sodium Level (test code = 2951-2) 140 136-145 [facility] HospitalPotassium Imxib7609-94-53 13:59:00* Test Item Value Reference Range Interpretation Comments Potassium Level (test code = 2823-3) 4.0 3.5-5.1 [facility] HospitalChloride Olyys1566-53-97 13:59:00* Test Item Value Reference Range Interpretation Comments Chloride Level (test code = 2075-0) 108 98-107 H [facility] HospitalCarbon Dioxide Exnhu6711-93-85 13:59:00* Test Item Value Reference Range Interpretation Comments Carbon Dioxide Level (test code = 2028-9) 22 22-29 [facility] HospitalAnion Yjt3965-43-07 13:59:00* Test Item Value Reference Range Interpretation Comments Anion Gap (test code = 24275-5) 14.0 8-16 [facility] HospitalBlood Urea Zlizkbtp0835-53-60 13:59:00* Test Item Value Reference Range Interpretation Comments Blood Urea Nitrogen (test code = 3094-0) 12 7-26 [facility] HospitalCreatinine2018-02-08 13:59:00* Test Item Value Reference Range Interpretation Comments Creatinine (test code = 2160-0) 0.70 0.57-1.11 [facility] HospitalBUN/Creatinine Ukssi5393-61-13 13:59:00* Test Item Value Reference Range Interpretation Comments BUN/Creatinine Ratio (test code = 3097-3) 17 6-25 [facility] HospitalEstimat Glomerular Filtration Rate 2017-08-17 13:59:00* Test Item Value Reference Range Interpretation Comments Estimat Glomerular Filtration Rate (test code = 75517-0) 60- >60 Ranges were taken from the National Kidney Disease Education Program and the [employer] [facility] [employer] literature.Reference ranges:60 or greater: Rgnhwj18-61 ( for 3 consecutive months): Chronic kidney disease 15 or less: Kidney failureHarris Health System Ben Taub HospitalGlucose Vutmk4754-43-28 13:59:00* Test Item Value Reference Range Interpretation Comments Glucose Level (test code = CPB5022) 151 74-118 H [facility] HospitalCalcium Pdpyj2026-64-32 13:59:00* Test Item Value Reference Range Interpretation Comments Calcium Level (test code = 13918-9) 9.8 8.4-10.2 [facility] HospitalTotal Pgucrtyob4014-18-55 13:59:00* Test Item Value Reference Range Interpretation Comments Total Bilirubin (test code = 1975-2) 0.6 0.2-1.2 [facility] HospitalAspartate Amino Transf (AST/SGOT) 2017-08-17 13:59:00* Test Item Value Reference Range Interpretation Comments Aspartate Amino Transf (AST/SGOT) (test code = Aspartate Amino Transf (AST/SGOT)) 22 5-34 [facility] HospitalAlanine Aminotransferase (ALT/SGPT) 2017-08-17 13:59:00* Test Item Value Reference Range Interpretation Comments Alanine Aminotransferase (ALT/SGPT) (test code = 1742-6) 37 0-55 [facility] HospitalTotal Zdrueio5233-78-16 13:59:00* Test Item Value Reference Range Interpretation Comments Total Protein (test code = 2885-2) 8.1 6.5-8.1 [facility] HospitalAlbumin2018-02-08 13:59:00* Test Item Value Reference Range Interpretation Comments Albumin (test code = 1751-7) 3.9 3.5-5.0 [facility] HospitalGlobulin2018-02-08 13:59:00* Test Item Value Reference Range Interpretation Comments Globulin (test code = 19595-0) 4.2 2.3-3.5 H [facility] HospitalAlbumin/Globulin Fenuk2978-91-62 13:59:00 * Test Item Value Reference Range Interpretation Comments Albumin/Globulin Ratio (test code = 1759-0) 0.9 0.8-2.0 [facility] HospitalAlkaline Lyagvzjcbsg0495-29-97 13:59:00* Test Item Value Reference Range Interpretation Comments Alkaline Phosphatase (test code = 6768-6) 111 40-150 [facility] HospitalCreatine Supjsv1619-43-35 13:59:00* Test Item Value Reference Range Interpretation Comments Creatine Kinase (test code = 2157-6) 64 29-168 [facility] HospitalCHEST SINGLE (PORTABLE) [facility] [address] [address] Patient Name: DILMA BARNARD MR #: [id number] : 1970 Age/Sex: 47/F Req #: [id number] Adm Physician: Ordered by: DORA SHARP MD Report #: [id number] Location: ER Room/Bed: Procedure: [id number] DX/CHEST SINGLE (PORTABLE) E xam Date: 08/17/17 [...] at 14:06 Dictated By: DEANDRE JIANG MD 140 Transcribed By: ELISABETH on 08/17/17 1406 COPY TO: DORA SHARP MD CT BRAIN WO [place] [address] Patient Name: DILMA BARNARD MR #: [id number] : 1970 Age/Sex: 47/F Req #: [id number] Adm Physician: Ordered by: DORA SHARP MD Report #: [id number] Location: ER Room/Bed: Procedure: [id number] CT/CT BRAIN WO Exam Date: Exam Time: [...] Signed By: JANNY WOO MD on 08/17/17 1303 Transcribed By: MONSERRAT on 08/17/17 1305 COPY TO: DORA SHARP MD
[2020-02-29] MEDS ORDERED: INSULIN REGULAR, HUMAN 100 UNIT/1 ML 3ML VIAL SQ ONE (22:30)
--- NOTE | 2020-02-29 23:03 | Emergency Department Note ---
History of Present Illnes History of Present Illness Chief Complaint: sob(wheezing),cp,bodyaches History of Present Illness This is a 50 year old female. dx with covid 3 days ago. Historian: Patient Arrival Mode: Car History limited by: condition of the patient (normal) [employer] Offbearer Required: No Onset (how long ago): hour(s) (12) Location: cp Quality: sharp Radiation: Reports non-radiation Severity: moderate Onset quality: gradual Duration (how long): hour(s) (2) Timing of current episode: constant Progression: worsening Chronicity: new Context: Reports recent illness; Denies recent surgery, Denies recent immobilization, Denies recent travel, Denies trauma/injury, Denies new medications, Denies hx of DVT/PE, Denies non- compliance w/ medications Relieving factors: none Exacerbating factors: movement Associated symptoms: Reports cough, Reports fever/chills Treatments prior to arrival: none Past Medical/Family History Physician Review I have reviewed the patient's past medical and family history. Any updates have been documented here. Past Medical History Recent Fever: No Clinical Suspicion of Infectio: No New/Unexplained Change in Ment: No Past Medical History: Hypertension, Diabetes, TIA, Hyperlipedemia Past Surgical History: Cholecysctectomy, Hysterectomy Other Surgery: LEFT HAND SX, Social History Smoking Cessation: Never Smoker Counseling Performed: No Alcohol Use: None Any Illegal Drug Use: No Physically hurt or threatened: No Other Last Tetanus: UNK Any Pre-Existing Lines (PICC,: No Review of Systems Review of Systems Constitutional: Reports as per HPI EENTM: Reports no symptoms Cardiovascular: Reports as per HPI Respiratory: Reports as per HPI Gastrointestinal: Reports no symptoms Genitourinary: Reports no symptoms Musculoskeletal: Reports as per HPI Integumentary: Reports no symptoms Neurological: Reports no symptoms Psychological: Reports no symptoms Endocrine: Reports no symptoms Hematological/Lymphatic: Reports no symptoms Review of other systems: All other systems negative Physical Exam Related Data Allergies: Coded Allergies: levofloxacin (Verified Allergy, Intermediate, ITCHING, 01/24/20) clindamycin (Verified Allergy, Unknown, 03/28/19) Triage Vital Signs Vital Signs Date Time Temp Pulse Resp B/P (MAP) Pulse Ox O2 Delivery O2 Flow Rate FiO2 02/29/20 21:10 98.7 109 18 144/76 97 Vital signs reviewed: Yes Physical Exam CONSTITUTIONAL Constitutional: Present well-developed, Present well-nourished HENT HENT: Present normocephalic, Present atraumatic, Present oropharynx clear/moist, Present nose normal HENT L/R: Present left ext ear normal, Present right ext ear normal EYES Eyes: Reports PERRL, Reports conjunctivae normal NECK Neck: Present ROM normal PULMONARY Pulmonary: Present other (+bilateral wheezes) CARDIOVASCULAR Cardiovascular: Present regular rhythm, Present heart sounds normal, Present capillary refill normal, Present normal rate, Present other (+cw tenderness) GASTROINTESTINAL Abdominal: Present soft, Present nontender, Present bowel sounds normal GENITOURINARY Genitourinary: Present exam deferred SKIN Skin: Present warm, Present dry MUSCULOSKELETAL Musculoskeletal: Present ROM normal NEUROLOGICAL Neurological: Present alert, Present oriented x 3, Present no gross motor or sensory deficits PSYCHOLOGICAL Psychological: Present mood/affect normal, Present judgement normal Results Laboratory Lab results reviewed: Yes Laboratory comments CBC NL, BMP NL EXCEPT GLU 198 , BNP AND CARDIAC ENZYMES NORMAL Imaging Imaging results reviewed: Yes Impressions [place] [address] Patient Name: DILMA BARNARD MR #: [id number] : 1970 Age/Sex: 50/F Req #: [id number] Adm Physician: Ordered by: TRUDY COELLO Report #: [id number] Location: [facility] Room/Bed: Procedure: [id number] HOPD/CXR 1 VEW - HOPD Exam Date: 02/29/20 Exam Time: 2114 REPORT STATUS: Signed EXAMINATION: CXR 1 W - HOPD INDICATION: Short of breath , chest pain, Covid COMPARISON: chest x-ray 03/29/2019 FINDINGS: TUBES and LINES: None. LUNGS: Low lung volumes. Multifocal bilateral patchy haziness. PLEURA: No pleural effusion or pneumothorax. HEART AND MEDIASTINUM: The cardiomediastinal silhouette is unremarkable. BONES AND SOFT TISSUES: No acute osseous lesion. Soft tissues are unremarkable. UPPER ABDOMEN: No free air under the diaphragm. IMPRESSION: Low lung volumes. Multifocal bilateral patchy haziness can be due to atelectasis or multifocal pneumonia.. Signed by: Harvey Elmore DO on 02/29/2020 9:42 PM Dictated By: HARVEY ELMORE DO 41 Transcribed By: MONSERRAT on 02/29/202141 COPY TO: TRUDY COELLO~ Critical Care Time Comments spoke to dr herring and said to admit under dr tyler sutton Assessment & Plan Medical Decision Making [facility] rad pneumonia Assessment & Plan Final Impression: (1) Bilateral pneumonia (2) COVID-19 (3) Diabetes mellitus (4) Reactive airway disease Last Vital Signs Date Time Temp Pulse Resp B/P (MAP) Pulse Ox O2 Delivery O2 Flow Rate FiO2 02/29/20 21:10 98.7 109 18 144/76 97 Home Meds Reported Medications Atorvastatin Calcium (ATORVASTATIN CALCIUM) 20 Mg Tablet, 20 MG PO HS, #30 TAB 01/24/20 Glimepiride (GLIMEPIRIDE) 2 Mg Tablet, 2 MG PO BID, TAB 01/24/20 Metformin Hcl (METFORMIN HCL) 500 Mg Tablet, 500 MG PO BID, #60 TAB 03/29/19 Lisinopril (PRINAVIL / ZESTRIL) 20 Mg Tablet, 5 MG PO DAILY 10/22/13 Medications in the ED Ceftriaxone Sodium 50 ml @ 100 mls/hr ONCE ONCE IV ; Start 02/29/20 at 21:45; Stop 02/29/20 at 22:14; Status UNV Azithromycin 250 ml @ 250 mls/hr NOW ONCE IV ; Start 02/29/20 at 21:45; Stop 02/29/20 at 22:44; Status UNV Methylprednisolone Sodium Succinate 125 mg ONCE ONCE IV ; Start 02/29/20 at 21:45; Stop 02/29/20 at 21:46 Methylprednisolone Sodium Succinate 125 mg STK-MED ONCE .ROUTE ; Start 02/29/20 at 22:17; Stop 02/29/20 at 22:10; Status DC Ceftriaxone Sodium 1,000 mg STK-MED ONCE .ROUTE ; Start 02/29/20 at 22:17; Stop 02/29/20 at 22:11; Status DC Sodium Chloride 250 ml @ ud STK-MED ONCE .ROUTE ; Start 02/29/20 at 22:17; Stop 02/29/20 at 22:11; Status DC Ketorolac Tromethamine 30 mg ONCE STAT IV ; Start 02/29/20 at 22:24; Stop 02/29/20 at 22:25; Status UNV Insulin Human Regular 4 unit ONCE ONCE SQ ; Start 02/29/20 at 22:30; Stop 02/29/20 at 22:31; Status UNV TRUDY COELLO Feb 29, 2020 23:03
[2020-02-29] MEDS ORDERED: CEFTRIAXONE SOD 1 GRAM/0.9% SOD CHL 50ML BAG IV SCH (23:45)
[2020-02-29] MEDS ORDERED: AZITHROMYCIN 500MG/SOD CHL 0.9% 250ML BAG IV SCH (23:45)
[2020-03-01] VITALS (8 sets, daily range): BP systolic 117–130; BP diastolic 63–97
--- OUTSIDE RECORDS SUMMARY | 2020-03-01 00:13 | XMS REPORT | Continuity of Care Document ---
Author Author [facility] t Organization [facility] Address [address] [place] [address] Phone Unavailable Care Team Providers Care Veterinary Poultry Inspector Name Role Phone MABLE ANTONY MD PCP Brook COELLO Attphys Unavailable MABLE ANTONY Attphys Unavailable KARLY GUZMÁN Attphys Unavailable Eneida SHARP Attphys Unavailable ANTONY, SOUHEGENEVA Admphys Unavailable Payers Payer Name Policy Type Policy Number Effective Date Expiration Date Liat Alonso Pos [id number] 2018 00:00:00 [facility] Problems Condition Name Condition Details Condition Category Status Onset Date Resolution Date Last Treatment Date Treating Clinician Comments Source Cerebrovascular accident (CVA) CVA (cerebral vascular accident) Pro blem Active [facility] Allergies, Adverse Reactions, Alerts Allergy Name Allergy Type Status Severity Reaction(s) Onset Date Inacti ve Date Treating Clinician Comments Source Clindamycin Allergy to Substance Active 2019-03-28 00:00:00 [facility] clindamycin DA Active 2018-12-13 00:00:00 [facility] levofloxacin DA Active SV 2018-12-13 00:00:00 [facility] clindamycin DA Active SV 2017-11-29 00:00:00 [facility] levofloxacin DA Active 2017-11-29 00:00:00 [facility] Medications Ordered Medication Name Filled Medication Name Start Date Stop Da te Current Medication? Ordering Clinician Indication Dosage Frequency Signature (SIG) Comments Components Source Lisinopril (Prinavil / Zestril) 20 Mg Tablet Lisinopri l (Prinavil / Zestril) 20 Mg Tablet Yes 20 Daily [facility] Metformin Hcl 500 Mg Tablet Metformin Hcl 500 Mg Tablet Yes 500 Twice A Day [facility] Medroxyprogesterone Acetate 10 Mg Tablet, 10 Mg Oral M edroxyprogesterone Acetate 10 Mg Tablet, 10 Mg Oral 2016-08-28 00:00:00 No 10 Daily [facility] Naproxen 375 Mg Tablet., 375 Mg Oral Naproxen 375 Mg Tablet. , 375 Mg Oral 2016-08-28 00:00:00 No 375 Twice A Day [facility] Procedures Procedure Date / Time Performed Performing Clinician Sour e Magnetic resonance imaging of brain without contrast 2019-03 00:00:00 ARACELIS YEUNG [facility] Computed tomography angiography of brain 2019-03-28 00:00:00 KACIE SIMMS [facility] CT angiography of neck 2019-03-28 00:00:00 KACIE MCBRIDE [facility] CT of abdomen and pelvis without contrast 2019-03-28 00:00:00 [facility] INTRODUCE OTH THROMBOLYTIC IN PERIPH VEIN, PERC 2019-03-28 0 0:00:00 KACIE MCBRIDE [facility] Encounters Start Date/Time End Date/Time Encounter Type Admission Type Attendi [facility] Facility Care Department Encounter ID Source 2019-09-19 22:33:00 2019-09-20 02:29:00 Departed Emergency Room 1 KARLY GUZMÁN [facility] [id number] [facility] 2019-05-28 15:07:00 2019-05-28 15:07:00 Registered Clinic 3 MABLE ANTONY [facility] [id number] [facility] 2019-03-28 12:42:00 2019-03-30 17:40:00 Discharged Inpatient 1 MABLE ANTONY [facility] [id number] [facility] 2017-08-17 12:16:00 2017-08-17 16:02:00 Departed Emergency Room ER DORA SHARP [facility] [id number] [facility] Results Test Description Test Time Test Comments Results Result Comments Source CXR 1 [facility] 2020-02-29 21:41:00 [place] [address] Patient Name: DILMA BARNARD MR #: [id number] : 1970 Age/Sex: 50/F Req #: [id number] Adm Physician: Ordered by: TRUDY COELLO Report #: [id number] Location: FSED Room/Bed: Procedure: [id number] HOPD/CXR 1 [facility] Exam Date: 02/29/20 Exam Time: 2114 REPORT STATUS: Signed EXAMINATION: CXR 1 [facility] INDICATION: Short of breath , chest pain, [...] TRUDY COELLO MRI BRAIN WO 2020-01-24 15:54:00 [place] [address] Patient Name: DILMA BARNARD MR #: [id number] : 1970 Age/Sex: 49/F Req #: [id number] Adm Physician: MABLE ANTONY MD Ordered by: MABLE ANTONY MD Report #: [id number] Location: MED/SURG2 Room/Bed: [facility] Procedure: [id number] MRI/MRI BRAIN WO Exam Date: Exam Time: [...] MABLE ANTONY MD CTA BRAIN 2020-01-23 21:48:00 [place] [address] Patient Name: DILMA BARNARD MR #: [id number] : 1970 Age/Sex: 49/F Req #: [id number] Adm Physician: Ordered by: DAVID LEMA DO Report #: [id number] Location: ER Room/Bed: Procedure: [id number] CT/CTA BRAIN Exam Date: 01/23/20 Exam Time: [...] DAVID LEMA DO CTA NECK 2020-01-23 21:48:00 [place] [address] Patient Name: DILMA BARNARD MR #: [id number] : 1970 Age/Sex: 49/F Req #: [id number] Adm Physician: Ordered by: DAVID LEMA DO Report #: [id number] Location: ER Room/Bed: Procedure: [id number] CT/CTA NECK Exam Date: 01/23/20 Exam Time: [...] SP LUMBAR, COMPLETE MIN 4VW 2019-10-03 14:25:00 [place] [address] Patient Name: DILMA BARNARD MR #: [id number] : 1970 Age/Sex: 49/F Req #: [id number] Adm Physician: Ordered by: MABLE ANTONY MD Report #: [id number] Location: RAD Room/Bed: Procedure: [id number] DX/SP LUMBAR, COMPLETE MIN 4VW Exam Date: [...] Test Item Bedside Glucose (test code = 54574-5) 313 70-120 H Meter ID: [id number] [address] (KUB) 2019-09-20 00:50:00 [place] [address] Patient Name: DILMA BARNARD MR #: [id number] : 1970 Age/Sex: 49/F Req #: [id number] Adm Physician: Ordered by: KARLY GUZMÁN DO Report #: [id number] Location: ER Room/Bed: Procedure: [id number] DX/ ABDOMEN-1VIEW (KUB) Exam Date: 09/19/19 Exam [...] MD COPY TO: KARLY GUZMÁN DO Urine PFJ0564-57-84 00:08:00* Test Item Value Reference Range Interpretation Comments Urine WBC (test code = 5821-4) 6-10 0-5 H [facility]ball[facility] MUH9121-08-31 00:08:00* Test Item Value Reference Range Interpretation Comments Urine RBC (test code = 05749-9) 0-5 0-5 [facility]ball[facility] Gsnvvusz8416-66-09 00:08:00* Test Item Value Reference Range Interpretation Comments Urine Bacteria (test code = 68249-4) RARE NONE [facility]ball[facility] Epithelial Belze7325-57-23 00:08:00 * Test Item Value Reference Range Interpretation Comments Urine Epithelial Cells (test code = 24037-4) FEW NONE [facility]ballUrine Mzttk4049-33-85 00:08:00* Test Item Value Reference Range Interpretation Comments Urine Yeast (test code = 51704-4) FEW NONE H [facility]ballWhite Blood Yylrj3199-06-53 00:00:00* Test Item Value Reference Range Interpretation Comments White Blood Count (test code = 6690-2) 9.16 4.8-10.8 [facility]ball[facility] Blood Qskpg4427-56-72 00:00:00* Test Item Value Reference Range Interpretation Comments Red Blood Count (test code = 789-8) 4.64 3.6-5.1 [facility]ballHemoglobin2020-03-13 00:00:00* Test Item Value Reference Range Interpretation Comments Hemoglobin (test code = 02607-7) 13.9 12.0-16.0 [facility]ballHematocrit2020-03-13 00:00:00* Test Item Value Reference Range Interpretation Comments Hematocrit (test code = 4544-3) 41.6 34.2-44.1 [facility] TomballMean Corpuscular Ykhzvr3334-30-82 00:00:00* Test Item Value Reference Range Interpretation Comments Mean Corpuscular Volume (test code = 787-2) 89.7 81-99 [facility]ballMean Corpuscular Imlwbreqsa1088-85-89 00:00:00* Test Item Value Reference Range Interpretation Comments Mean Corpuscular Hemoglobin (test code = 785-6) 30.0 28-32 [facility] TomballMean Corpuscular Hemoglobin Concent 2019-09-20 00:00:00* Test Item Value Reference Range Interpretation Comments Mean Corpuscular Hemoglobin Concent (test code = 786-4) 33.4 31-35 [facility]ballRed Cell Distribution Dfoqg8254-33-02 00:00:00* Test Item Value Reference Range Interpretation Comments Red Cell Distribution Width (test code = 69659-3) 13.2 11.7 -14.4 [facility] TomballPlatelet Cpbbx3491-66-46 00:00:00* Test Item Value Reference Range Interpretation Comments Platelet Count (test code = 777-3) 271 140-360 [facility]ballNeutrophils (%) (Auto)2019-09-20 00:00:00 * Test Item Value Reference Range Interpretation Comments Neutrophils (%) (Auto) (test code = 39067-5) 54.5 38.7-80.0 [facility]ballLymphocytes (%) (Auto)2019-09-20 00:00:00 * Test Item Value Reference Range Interpretation Comments Lymphocytes (%) (Auto) (test code = 736-9) 37.1 18.0-39.1 [facility]ballMonocytes (%) (Auto)2019-09-20 00:00:00* Test Item Value Reference Range Interpretation Comments Monocytes (%) (Auto) (test code = 5905-5) 5.6 4.4-11.3 [facility]ballEosinophils (%) (Auto)2019-09-20 00:00:00 * Test Item Value Reference Range Interpretation Comments Eosinophils (%) (Auto) (test code = 713-8) 2.1 0.0-6.0 [facility]ballBasophils (%) (Auto)2019-09-20 00:00:00* Test Item Value Reference Range Interpretation Comments Basophils (%) (Auto) (test code = 706-2) 0.4 0.0-1.0 [facility]ballIM GRANULOCYTES %2019-09-20 00:00:00* Test Item Value Reference Range Interpretation Comments IM GRANULOCYTES % (test code = IM GRANULOCYTES %) 0.3 0.0- 1.0 [facility]ballNeutrophils # (Auto)2019-09-20 00:00:00* Test Item Value Reference Range Interpretation Comments Neutrophils # (Auto) (test code = 751-8) 5.0 2.1-6.9 [facility]ballLymphocytes # (Auto)2019-09-20 00:00:00* Test Item Value Reference Range Interpretation Comments Lymphocytes # (Auto) (test code = 03929-7) 3.4 1.0-3.2 H [facility]ballMonocytes # (Auto)2019-09-20 00:00:00* Test Item Value Reference Range Interpretation Comments Monocytes # (Auto) (test code = 742-7) 0.5 0.2-0.8 [facility]ballEosinophils # (Auto)2019-09-20 00:00:00* Test Item Value Reference Range Interpretation Comments Eosinophils # (Auto) (test code = 711-2) 0.2 0.0-0.4 [facility]ballBasophils # (Auto)2019-09-20 00:00:00* Test Item Value Reference Range Interpretation Comments Basophils # (Auto) (test code = 704-7) 0.0 0.0-0.1 [facility] TomballAbsolute Immature Granulocyte (auto 2019-09-20 00:00:00* Test Item Value Reference Range Interpretation Comments Absolute Immature Granulocyte (auto (verona t code = Absolute Immature Granulocyte (auto) 0.03 0-0.1 [facility] Dskcc1155-93-57 23:59:00* Test Item Value Reference Range Interpretation Comments Sodium Level (test code = 2951-2) 137 136-145 [facility]ballPotassium Shgwp2642-96-66 23:59:00* Test Item Value Reference Range Interpretation Comments Potassium Level (test code = 2823-3) 4.5 3.5-5.1 [facility] TomballChloride Zrnms5206-44-06 23:59:00* Test Item Value Reference Range Interpretation Comments Chloride Level (test code = 2075-0) 103 98-107 [facility] TomballCarbon Dioxide Uxcdh1330-73-43 23:59:00* Test Item Value Reference Range Interpretation Comments Carbon Dioxide Level (test code = 2028-9) 27 22-29 [facility] TomballAnion Edp2483-01-33 23:59:00* Test Item Value Reference Range Interpretation Comments Anion Gap (test code = 53664-9) 11.5 8-16 [facility] TomballBlood Urea Dbxafkrq2181-95-17 23:59:00* Test Item Value Reference Range Interpretation Comments Blood Urea Nitrogen (test code = 3094-0) 12 7-26 [facility] TomballCreatinine2020-03-12 23:59:00* Test Item Value Reference Range Interpretation Comments Creatinine (test code = 2160-0) 1.09 0.57-1.11 [facility]ballBUN/Creatinine Udchp6288-45-72 23:59:00* Test Item Value Reference Range Interpretation Comments BUN/Creatinine Ratio (test code = 3097-3) 11 6-25 [facility] TomballEstimat Glomerular Filtration Rate 2019-09-19 23:59:00* Test Item Value Reference Range Interpretation Comments Estimat Glomerular Filtration Rate (test code = 979263492) 54 >60 L Ranges were taken from the National Kidney Disease Education Program and the [facility] Kidney Foundation literature.Reference ranges:60 or greater: Zbapkp50-49 ( for 3 consecutive months): Chronic kidney disease 15 or less: Kidney failureHCA Houston Healthcare TomballGlucose Ehdmr4742-00-83 23:59:00* Test Item Value Reference Range Interpretation Comments Glucose Level (test code = QTP0255) 481 74-118 HH Results repeated and called to DAKOTA MARTINEZ RN at 2358 on 09/19/19 by Mireya clarke. Read back and verified.[facility] TomballCalcium Level 2019-09-19 23:59:00* Test Item Value Reference Range Interpretation Comments Calcium Level (test code = 13071-1) 10.0 8.4-10.2 [facility] TomballTotal Useywifsa5535-80-25 23:59:00* Test Item Value Reference Range Interpretation Comments Total Bilirubin (test code = 1975-2) 0.5 0.2-1.2 [facility] TomballAspartate Amino Transf (AST/SGOT) 2019-09-19 23:59:00* Test Item Value Reference Range Interpretation Comments Aspartate Amino Transf (AST/SGOT) (test code = Aspartate Amino Transf (AST/SGOT)) < 3 5-34 L [facility] TomballAlanine Aminotransferase (ALT/SGPT) 2019-09-19 23:59:00* Test Item Value Reference Range Interpretation Comments Alanine Aminotransferase (ALT/SGPT) (test code = 1742-6) 31 0-55 [facility] TomballTotal Geqyqan3777-05-24 23:59:00* Test Item Value Reference Range Interpretation Comments Total Protein (test code = 2885-2) 7.5 6.5-8.1 [facility] TomballAlbumin2020-03-12 23:59:00* Test Item Value Reference Range Interpretation Comments Albumin (test code = 1751-7) 3.8 3.5-5.0 [facility] TomballGlobulin2020-03-12 23:59:00* Test Item Value Reference Range Interpretation Comments Globulin (test code = 21464-6) 3.7 2.3-3.5 H [facility] TomballAlbumin/Globulin Lhrvv9907-30-45 23:59:00 * Test Item Value Reference Range Interpretation Comments Albumin/Globulin Ratio (test code = 1759-0) 1.0 0.8-2.0 [facility] TomballAlkaline Cyzncdfkugh3941-48-38 23:59:00* Test Item Value Reference Range Interpretation Comments Alkaline Phosphatase (test code = 6768-6) 121 40-150 [facility] TomballUrine Fweoq0641-08-58 23:42:00* Test Item Value Reference Range Interpretation Comments Urine Color (test code = 5778-6) YELLOW YELLOW [facility] TomballUrine Nzcidod9596-52-44 23:42:00* Test Item Value Reference Range Interpretation Comments Urine Clarity (test code = 87803-0) CLEAR CLEAR [facility] TomballUrine Specific Ctedurr8955-30-72 23:42:00 * Test Item Value Reference Range Interpretation Comments Urine Specific [place] (test code = 5811-5) 1.020 1.010-1.02 5 [facility] TomballUrine xZ0426-30-02 23:42:00* Test Item Value Reference Range Interpretation Comments Urine pH (test code = 40909-7) 5.5 5-7 [facility] TomballUrine Leukocyte Ahlmdanx3533-24-94 23:42:00* Test Item Value Reference Range Interpretation Comments Urine Leukocyte Esterase (test code = 5799-2) NEGATIVE NEGATIVE [facility] TomballUrine Rwrbzuc2573-11-83 23:42:00* Test Item Value Reference Range Interpretation Comments Urine Nitrite (test code = 08093-7) NEGATIVE NEGATIVE [facility] TomballUrine Qwvkarv9914-17-50 23:42:00* Test Item Value Reference Range Interpretation Comments Urine Protein (test code = 5804-0) NEGATIVE NEGATIVE [facility] TomballUrine Glucose (UA)2019-09-19 23:42:00* Test Item Value Reference Range Interpretation Comments Urine Glucose (UA) (test code = 2349-9) 3+ NEGATIVE H [facility] TomballUrine Werreox6682-69-67 23:42:00* Test Item Value Reference Range Interpretation Comments Urine Ketones (test code = 83652-5) NEGATIVE NEGATIVE [facility] Przsldvjkwit5350-30-10 23:42:00* Test Item Value Reference Range Interpretation Comments Urine Urobilinogen (test code = 41262-1) 0.2 0.2-1 [facility] Wtjgwocsv3129-97-22 23:42:00* Test Item Value Reference Range Interpretation Comments Urine Bilirubin (test code = 1978-6) NEGATIVE NEGATIVE [facility] TomballUrine Dfuzp3435-18-81 23:42:00* Test Item Value Reference Range Interpretation Comments Urine Blood (test code = 79383-9) NEGATIVE NEGATIVE [facility] FriscoTREPTOCOCCUS PCR JKIKUK1961-09-10 16:34:00* Test Item Value Reference Range Interpretation Comments STREPTOCOCCUS DYSGALACTIAE (test code = STREPGC) NEGATIVE FOR G/C N EGATIVE STREPA MOLECULAR (test code = STREPAMOL) NEGATIVE FOR GRP A NEGATIV E BASIC METABOLIC ZCHFA8959-81-34 17:50:00* Test Item Value Reference Range Interpretation [...] CA) 9.1 mg/dL 8.4-10.2 N HEPATIC FUNCTION HWSUI5003-48-93 17:50:00* Test Item Value Reference Range Interpretation [...] code = ALKP) 128 U/L 38-126 H XOYFAS1824-32-10 17:50:00* Test Item Value Reference Range Interpretation Comments LIPASE (test code = LIP) 513 U/L 128-270 H HCG SERUM RJZG1428-71-46 17:50:00* Test Item Value Reference Range Interpretation Comments HCG SERUM QUAL (test code = HCGQL) NEGATIVE NEGATIVE This HCGQL test is NOT applicable for MALE patients.Check with nurse about probable order error.If Tumor Marker Test needed, nurse should order test "HCGTU"(Test #550.42781) [id number]-D3579-80-05 17:50:00* Test Item Value Reference Range Interpretation Comments TROPONIN-I (test code = TROPI) <0.015 ng/mL 0.00-0.056 N URINALYSIS WDIHOJMX8857-70-65 17:49:00* Test Item Value Reference Range Interpretation [...] HPF NONE Urine Source? Clean CatchBASIC METABOLIC OGRYR1695-32-06 17:45:00* Test Item Value Reference Range Interpretation [...] CA) 9.1 mg/dL 8.4-10.2 N HEPATIC FUNCTION YDHOO6558-74-23 17:45:00* Test Item Value Reference Range Interpretation [...] TOTAL (test code = ALKP) IUnit/L 45-117 IBTEKR7811-15-09 17:45:00* Test Item Value Reference Range Interpretation Comments LIPASE (test code = LIP) Unit/L 144-286 HCG SERUM AKTO0922-73-29 17:45:00* Test Item Value Reference Range Interpretation Comments HCG SERUM QUAL (test code = HCGQL) NEGATIVE NEGATIVE This HCGQL test is NOT applicable for MALE patients.Check with nurse about probable order error.If Tumor Marker Test needed, nurse should order test "HCGTU"(Test #550.58801) JLNUKZBV-G0284-20-05 17:45:00* Test Item Value Reference Range Interpretation Comments TROPONIN-I (test code = TROPI) ng/mL 0-0.045 URINALYSIS IVKTUPZD4953-24-88 17:42:00* Test Item Value Reference Range Interpretation [...] HPF NONE Urine Source? Clean CatchBASIC METABOLIC QFWMY4965-38-97 17:41:00* Test Item Value Reference Range Interpretation [...] CA) 9.1 mg/dL 8.4-10.2 N HEPATIC FUNCTION YDJZE8321-44-47 17:41:00* Test Item Value Reference Range Interpretation [...] TOTAL (test code = ALKP) IUnit/L 45-117 ECJGWH6218-59-84 17:41:00* Test Item Value Reference Range Interpretation Comments LIPASE (test code = LIP) Unit/L 144-286 HCG SERUM [id number] 17:41:00* Test Item Value Reference Range Interpretation Comments HCG SERUM QUAL (test code = HCGQL) NEGATIVE RBMZAOEZ-C1533-41-05 17:41:00* Test Item Value Reference Range Interpretation Comments TROPONIN-I (test code = TROPI) ng/mL 0-0.045 CBC W/O BRCK4099-29-76 17:35:00* Test Item Value Reference Range Interpretation [...] MPV) 10.0 fL 6.7-11.0 N SHOULDER RIGHT HGAFICKE1485-76-45 16:37:00 [facility] [address] [place] [address] Patient Name: DILMA BARNARD MR #: [id number] : 1970 Age/Sex: 49/F Req #: [id number] Adm Physician: Ordered by: MABLE ANTONY MD Report #: [id number] Location: [facility] Room/Bed: Procedure: [id number] DX/ OULDER RIGHT COMPLETE Exam Date: 05/28/19 [...] 1640 COPY TO: MABLE ANTONY MD Bedside Gnhwyck2813-99-48 20:31:00* Test Item Value Reference Range Interpretation Comments Bedside Glucose (test code = 01540-5) 175 70-120 H Meter ID: [id number] [facility] 2019-03-29 13:58:00 [facility] [address] [place] [address] Patient Name: DILMA BARNARD MR #: [id number] : 1970 Age/Sex: 49/F Req #: [id number] Adm Physician: MABLE ANTONY MD Ordered by: ARACELIS YEUNG M.D. Report #: [id number] Location: ICU Room/Bed: ICU [facility] Procedure: MRI/MRI BRAIN WO Exam Date: Exam [...] Judy OPY TO: ARACELIS YEUNG MD Triglycerides Uczxc7198-70-74 08:48:00* Test Item Value Reference Range Interpretation Comments Triglycerides Level (test code = 2571-8) 128 0-149 [facility]ballCholesterol Hdltg6639-35-37 08:48:00* Test Item Value Reference Range Interpretation Comments Cholesterol Level (test code = 2093-3) 134 0-199 Less than 200 mg/dL Low Yzxw810 - 239 mg/dL Borderline Jybb844 m g/dl and greater High Risk [facility] TomballLDL Dotdwaviohg7096-36-97 08:48:00* Test Item Value Reference Range Interpretation Comments LDL Cholesterol (test code = 2089-1) 67 60-130 [facility] TomballHDL Cyaxqlflmvs7871-45-92 08:48:00* Test Item Value Reference Range Interpretation Comments HDL Cholesterol (test code = 2085-9) 41 40-60 [facility] TomballCholesterol/HDL Spyxv7660-55-37 08:48:00 * Test Item Value Reference Range Interpretation Comments Cholesterol/HDL Ratio (test code = 9830-1) 3.3 3.0-3.6 [facility] TomballTriglycerides Djpqi1733-71-07 08:48:00* Test Item Value Reference Range Interpretation Comments Triglycerides Level (test code = 2571-8) 128 0-149 [facility] TomballCholesterol Rzrkv0327-33-98 08:48:00* Test Item Value Reference Range Interpretation Comments Cholesterol Level (test code = 2093-3) 134 0-199 Less than 200 mg/dL Low Uqwf610 - 239 mg/dL Borderline Demp778 m g/dl and greater High Risk [facility] TomballLDL Ysqlagbzubh3855-95-32 08:48:00* Test Item Value Reference Range Interpretation Comments LDL Cholesterol (test code = 2089-1) 67 60-130 [facility] TomballHDL Ktpqovvomct6423-46-72 08:48:00* Test Item Value Reference Range Interpretation Comments HDL Cholesterol (test code = 2085-9) 41 40-60 [facility] TomballCholesterol/HDL Zyjri3215-55-95 08:48:00 * Test Item Value Reference Range Interpretation Comments Cholesterol/HDL Ratio (test code = 9830-1) 3.3 3.0-3.6 [facility] TomballHemoglobin A1c Oleyrpf5118-36-36 08:42:00 * Test Item Value Reference Range Interpretation Comments Hemoglobin A1c Percent (test code = Hemoglobin A1c Percent) 7.9 4.0-7.0 H [facility] TomballHemoglobin A1c Uxqckmy5511-13-57 08:42:00 * Test Item Value Reference Range Interpretation Comments Hemoglobin A1c Percent (test code = Hemoglobin A1c Percent) 7.9 4.0-7.0 H [facility] TomballCHEST SINGLE (PORTABLE)2019-03-29 07:32:00 [place] [address] Patient Name: DILMA BARNARD MR #: [id number] : 1970 Age/Sex: 49/F Req #: [id number] Adm Physician: MABLE ANTONY MD Ordered by: KACIE MCBRIDE MD Report #: [id number] Location: ICU Room/Bed: [place] [address] Procedure: [id number] DX/CHEST SINGLE (PORTABLE) Exam Date: 03/29/19 Exam [...] 03/29/19739 COPY TO: KACIE MCBRIDE MD Sodium Kbmyz3898-90-81 06:23:00* Test Item Value Reference Range Interpretation Comments Sodium Level (test code = 2951-2) 141 136-145 [facility] TomballPotassium Scufb1525-15-83 06:23:00* Test Item Value Reference Range Interpretation Comments Potassium Level (test code = 2823-3) 3.8 3.5-5.1 [facility] TomballChloride Xivqz5345-73-62 06:23:00* Test Item Value Reference Range Interpretation Comments Chloride Level (test code = 2075-0) 111 98-107 H [facility] TomballCarbon Dioxide Glecp2644-79-85 06:23:00* Test Item Value Reference Range Interpretation Comments Carbon Dioxide Level (test code = 2028-9) 22 22-29 [facility] TomballAnion Wer1483-61-01 06:23:00* Test Item Value Reference Range Interpretation Comments Anion Gap (test code = 53669-5) 11.8 8-16 [facility] TomballBlood Urea Qpinirzo7486-89-83 06:23:00* Test Item Value Reference Range Interpretation Comments Blood Urea Nitrogen (test code = 3094-0) 16 7-26 [facility] TomballCreatinine2019-09-20 06:23:00* Test Item Value Reference Range Interpretation Comments Creatinine (test code = 2160-0) 0.66 0.57-1.11 [facility] TomballBUN/Creatinine Pmoyk8110-26-39 06:23:00* Test Item Value Reference Range Interpretation Comments BUN/Creatinine Ratio (test code = 3097-3) 24 6-25 [facility] TomballEstimat Glomerular Filtration Rate 2019-03-29 06:23:00* Test Item Value Reference Range Interpretation Comments Estimat Glomerular Filtration Rate (test code = 029252910) > 60 >60 Ranges were taken from the National Kidney Disease Education Program and the [facility] Kidney Foundation literature.Reference ranges:60 or greater: Eupwkp13-57 ( for 3 consecutive months): Chronic kidney disease 15 or less: Kidney failureCHI [facility] – TaylorGlucose Hdoed0440-05-15 06:23:00* Test Item Value Reference Range Interpretation Comments Glucose Level (test code = ZDX6302) 123 74-118 H [facility] TomballCalcium Viido5402-75-20 06:23:00* Test Item Value Reference Range Interpretation Comments Calcium Level (test code = 11997-0) 9.7 8.4-10.2 [facility] TomballTotal Snmhzrfhm1423-90-28 06:23:00* Test Item Value Reference Range Interpretation Comments Total Bilirubin (test code = 1975-2) 0.9 0.2-1.2 [facility] TomballAspartate Amino Transf (AST/SGOT) 2019-03-29 06:23:00* Test Item Value Reference Range Interpretation Comments Aspartate Amino Transf (AST/SGOT) (test code = Aspartate Amino Transf (AST/SGOT)) 21 5-34 [facility] TomballAlanine Aminotransferase (ALT/SGPT) 2019-03-29 06:23:00* Test Item Value Reference Range Interpretation Comments Alanine Aminotransferase (ALT/SGPT) (test code = 1742-6) 26 0-55 [facility] TomballTotal Wkhphjj9529-61-57 06:23:00* Test Item Value Reference Range Interpretation Comments Total Protein (test code = 2885-2) 6.5 6.5-8.1 [facility] TomballAlbumin2019-09-20 06:23:00* Test Item Value Reference Range Interpretation Comments Albumin (test code = 1751-7) 3.3 3.5-5.0 L [facility] TomballGlobulin2019-09-20 06:23:00* Test Item Value Reference Range Interpretation Comments Globulin (test code = 22236-6) 3.2 2.3-3.5 [facility] TomballAlbumin/Globulin Dwzax3306-77-50 06:23:00 * Test Item Value Reference Range Interpretation Comments Albumin/Globulin Ratio (test code = 1759-0) 1.0 0.8-2.0 [facility] TomballAlkaline Zbcdwrsfpus2780-44-62 06:23:00* Test Item Value Reference Range Interpretation Comments Alkaline Phosphatase (test code = 6768-6) 106 40-150 [facility] TomballWhite Blood Doxfa7565-55-84 05:34:00* Test Item Value Reference Range Interpretation Comments White Blood Count (test code = 6690-2) 7.53 4.8-10.8 [facility] TomballRed Blood Aicxg8483-62-46 05:34:00* Test Item Value Reference Range Interpretation Comments Red Blood Count (test code = 789-8) 4.23 3.6-5.1 [facility] TomballHemoglobin2019-09-20 05:34:00* Test Item Value Reference Range Interpretation Comments Hemoglobin (test code = 51428-0) 12.7 12.0-16.0 [facility] TomballHematocrit2019-09-20 05:34:00* Test Item Value Reference Range Interpretation Comments Hematocrit (test code = 4544-3) 37.9 34.2-44.1 [facility] TomballMean Corpuscular Iznsmt6384-54-71 05:34:00* Test Item Value Reference Range Interpretation Comments Mean Corpuscular Volume (test code = 787-2) 89.6 81-99 [facility] TomballMean Corpuscular Boknwemmim2365-79-52 05:34:00* Test Item Value Reference Range Interpretation Comments Mean Corpuscular Hemoglobin (test code = 785-6) 30.0 28-32 [facility] TomballMean Corpuscular Hemoglobin Concent 2019-03-29 05:34:00* Test Item Value Reference Range Interpretation Comments Mean Corpuscular Hemoglobin Concent (test code = 786-4) 33.5 31-35 [facility] TomballRed Cell Distribution Bibfk7455-64-88 05:34:00* Test Item Value Reference Range Interpretation Comments Red Cell Distribution Width (test code = 16699-1) 12.8 11.7 -14.4 [facility] TomballPlatelet Qlkrq5669-69-76 05:34:00* Test Item Value Reference Range Interpretation Comments Platelet Count (test code = 777-3) 282 140-360 [facility] TomballNeutrophils (%) (Auto)2019-03-29 05:34:00 * Test Item Value Reference Range Interpretation Comments Neutrophils (%) (Auto) (test code = 95997-8) 59.7 38.7-80.0 [facility] TomballLymphocytes (%) (Auto)2019-03-29 05:34:00 * Test Item Value Reference Range Interpretation Comments Lymphocytes (%) (Auto) (test code = 736-9) 30.1 18.0-39.1 [facility] TomballMonocytes (%) (Auto)2019-03-29 05:34:00* Test Item Value Reference Range Interpretation Comments Monocytes (%) (Auto) (test code = 5905-5) 6.8 4.4-11.3 [facility] TomballEosinophils (%) (Auto)2019-03-29 05:34:00 * Test Item Value Reference Range Interpretation Comments Eosinophils (%) (Auto) (test code = 713-8) 2.5 0.0-6.0 [facility] TomballBasophils (%) (Auto)2019-03-29 05:34:00* Test Item Value Reference Range Interpretation Comments Basophils (%) (Auto) (test code = 706-2) 0.5 0.0-1.0 [facility] TomballIM GRANULOCYTES %2019-03-29 05:34:00* Test Item Value Reference Range Interpretation Comments IM GRANULOCYTES % (test code = IM GRANULOCYTES %) 0.4 0.0- 1.0 [facility] TomballNeutrophils # (Auto)2019-03-29 05:34:00* Test Item Value Reference Range Interpretation Comments Neutrophils # (Auto) (test code = 751-8) 4.5 2.1-6.9 [facility] TomballLymphocytes # (Auto)2019-03-29 05:34:00* Test Item Value Reference Range Interpretation Comments Lymphocytes # (Auto) (test code = 60810-4) 2.3 1.0-3.2 [facility] TomballMonocytes # (Auto)2019-03-29 05:34:00* Test Item Value Reference Range Interpretation Comments Monocytes # (Auto) (test code = 742-7) 0.5 0.2-0.8 [facility] TomballEosinophils # (Auto)2019-03-29 05:34:00* Test Item Value Reference Range Interpretation Comments Eosinophils # (Auto) (test code = 711-2) 0.2 0.0-0.4 [facility] TomballBasophils # (Auto)2019-03-29 05:34:00* Test Item Value Reference Range Interpretation Comments Basophils # (Auto) (test code = 704-7) 0.0 0.0-0.1 [facility] TomballAbsolute Immature Granulocyte (auto 2019-03-29 05:34:00* Test Item Value Reference Range Interpretation Comments Absolute Immature Granulocyte (auto (verona t code = Absolute Immature Granulocyte (auto) 0.03 0-0.1 [facility] TomballCT ABDOMEN/PELVIS PG7856-00-86 21:53:00 [place] [address] Patient Name: DILMA BARNARD MR #: [id number] : 1970 Age/Sex: 49/F Req #: [id number] Adm Physician: MABLE ANTONY MD Ordered by: MABLE ANTONY MD Report #: [id number] Location: [facility]/Bed: [place] [address] Procedure: [id number] CT/ CT ABDOMEN/PELVIS WO Exam Date: 03/28/19 [...] 58 COPY TO: CORAL ANTONY MD CTA GJSX7791-02-17 12:59:00 [place] [address] Patient Name: DILMA BARNARD MR #: [id number] : 1970 Age/Sex: 49/F Req #: [id number] Adm Physician: Ordered by: KACIE MCBRIDE MD Report #: [id number] Location: ER Room/Bed: Procedure: [id number] CT /CTA NECK Exam Date: 03/28/19 Exam [...] 1259 COPY TO: ROSEMARIE MCBRIDE MD Troponin R4068-33-65 12:51:00* Test Item Value Reference Range Interpretation Comments Troponin I (test code = ZDM3666) 0.006 0-0.300 [facility] TomballTroponin N2866-88-28 12:51:00* Test Item Value Reference Range Interpretation Comments Troponin I (test code = GSN5658) 0.006 0-0.300 [facility] TomballCHEST SINGLE (PORTABLE)2019-03-28 12:49:00 [place] [address] Patient Name: DILMA BARNARD MR #: [id number] : 1970 Age/Sex: 49/F Req #: [id number] Adm Physician: Ordered by: KACIE MCBRIDE MD Report #: [id number] Location: ER Room/Bed: Procedure: [id number] DX /CHEST SINGLE (PORTABLE) Exam Date: Exam [...] Transcribed By: MONSERRAT on 03/28/191248 COPY TO: AKCIE MCBRIDE MD [facility] COUNTYDLYPS8996-30-62 12:36:00 [place] [address] Patient Name: DILMA BARNARD MR #: [id number] : 1970 Age/Sex: 49/F Req #: [id number] Adm Physician: Ordered by: KACIE MCBRIDE MD Report #: [id number] Location: ER Room/Bed: Procedure: [id number] CT /CTA BRAIN Exam Date: 03/28/19 Exam [...] 1243 COPY TO: ALONZO MCBRIDE MD Prothrombin Jlyc3731-46-14 12:17:00* Test Item Value Reference Range Interpretation Comments Prothrombin Time (test code = 5902-2) 12.2 11.9-14.5 [facility] TomballProthromb Time International Ratio 2019-03-28 12:17:00* Test Item Value Reference Range Interpretation Comments Prothromb Time International Ratio (test code = 6301-6) 0.86 Oral Anticoagulant Therapy INR Values:1. Low Intensity Therapy 1.5 - 2.02 . Moderate Intensity Therapy 2.0 - 3.03. High Intensity Therapy(1) 2.5 - 3. 54. High Intensity Therapy(2) 3.0 - 4.05. Panic Value INR > 5.0 [facility] TomballActivated Partial Thromboplast Time 2019-03-28 12:17:00* Test Item Value Reference Range Interpretation Comments Activated Partial Thromboplast Time (test code = 29098-3) 28.2 23.8-35.5 [facility] TomballProthrombin Jzok8212-04-82 12:17:00* Test Item Value Reference Range Interpretation Comments Prothrombin Time (test code = 5902-2) 12.2 11.9-14.5 [facility] TomballProthromb Time International Ratio 2019-03-28 12:17:00* Test Item Value Reference Range Interpretation Comments Prothromb Time International Ratio (test code = 6301-6) 0.86 Oral Anticoagulant Therapy INR Values:1. Low Intensity Therapy 1.5 - 2.02 . Moderate Intensity Therapy 2.0 - 3.03. High Intensity Therapy(1) 2.5 - 3. 54. High Intensity Therapy(2) 3.0 - 4.05. Panic Value INR > 5.0 [facility] TomballActivated Partial Thromboplast Time 2019-03-28 12:17:00* Test Item Value Reference Range Interpretation Comments Activated Partial Thromboplast Time (test code = 86546-9) 28.2 23.8-35.5 [facility] TomballGLUBED2019-06-08 17:34:00* Test Item Value Reference Range Interpretation Comments GLUBED (test code = GLUBED) 182 mg/dL 74-106 H Performed by certified tool room lathe operator at [facility] ZAAEOR6039-89-53 11:54:00* Test Item Value Reference Range Interpretation Comments GLUBED (test code = GLUBED) 364 mg/dL 74-106 H Performed by certified tool room lathe operator at [facility] CAOOWI3881-94-89 07:40:00* Test Item Value Reference Range Interpretation Comments GLUBED (test code = GLUBED) 273 mg/dL 74-106 H Performed by certified tool room lathe operator at [facility] ADXKYK2670-58-89 04:05:00* Test Item Value Reference Range Interpretation Comments GLUBED (test code = GLUBED) 253 mg/dL 74-106 H Performed by certified tool room lathe operator at [facility] ZIEKDZXD-Q2744-76-07 17:36:00* Test Item Value Reference Range Interpretation Comments TROPONIN-I (test code = TROPI) <0.015 ng/mL 0-0.045 N PGLZWT3443-36-86 16:44:00* Test Item Value Reference Range Interpretation Comments GLUBED (test code = GLUBED) 228 mg/dL 74-106 H Performed by certified tool room lathe operator at [facility] - XR ABDOMEN AP 1 E0579-23-13 11:49:00 FAX: Mable Tomas MD [phone] [place]: St: ADM FAX: Lara White MD [phone] Name: DILMA BARNARD [facility] : 1970 Age/S: 48/F [address] [facility] Unit #: [id number] Loc: V.[address] [place] [address] Phys: Lara Casiano MD Acct: [id number] Dis Date: Status: ADM IN PHONE #: [phone] Exam Date: 12/14/2018 1143 FAX #: [phone] Reason: KIDNEY STONE EXAMS: CPT CODE: [id number] XR ABDOMEN AP 1 V 70655 HISTORY: Kidney stone. COMPARISON: CT scan from [...] By: [email or web address] Orig Print D/T: S: 12/14/2018 (0306) PAGE 1 Signed Report [id number] 11:37:00* Test Item Value Reference Range Interpretation Comments GLUBED (test code = GLUBED) 269 mg/dL 74-106 H Performed by certified tool room lathe operator at [facility] NIHVZN5447-98-13 07:48:00* Test Item Value Reference Range Interpretation Comments GLUBED (test code = GLUBED) 252 mg/dL 74-106 H Performed by certified tool room lathe operator at [facility] XOGXZUA5484-49-53 07:42:00* Test Item Value Reference Range Interpretation Comments AMYLASE (test code = MARYLU) 46 Unit/L 25-115 N PQABQJ4326-16-48 07:42:00* Test Item Value Reference Range Interpretation Comments LIPASE (test code = LIP) 218 U/L 73.0-393.0 N BASIC METABOLIC ZIPDE5912-33-72 06:30:00* Test Item Value Reference Range Interpretation [...] CA) 10.1 mg/dL 8.5-10.1 N CBC W/AUTO KLMF9335-50-35 06:11:00* Test Item Value Reference Range Interpretation [...] NRBC#) 0.00 K/mm3 0.0-0.1 N BASIC METABOLIC FFHBY5906-56-52 06:10:00* Test Item Value Reference Range Interpretation [...] CALCIUM (test code = CA) mg/dL 8.5-10.1 ASIVPNEN-X8108-77-07 00:08:00* Test Item Value Reference Range Interpretation Comments TROPONIN-I (test code = TROPI) <0.015 ng/mL 0-0.045 N COMMENTS TO PREPARED FOODS ASSOCIATE: COLLECT 3 HOURS AFTER PREVIOUS UQMJWNYISCXNVK-M1509-52-06 21:48:00* Test Item Value Reference Range Interpretation Comments TROPONIN-I (test code = TROPI) <0.015 ng/mL 0-0.045 N COMMENTS TO PREPARED FOODS ASSOCIATE: COLLECT 3 HOURS AFTER PREVIOUS VYYIUNHZCNKY3907-45-68 21:09:00* Test Item Value Reference Range Interpretation Comments GLUBED (test code = GLUBED) 299 mg/dL 74-106 H Performed by certified tool room lathe operator at [facility] - CTA YHDMA6857-38-63 15:14:00 Name: DILMA BARNARD [facility] : 1970 Age/S: 48 / F [facility] Unit #: [id number] Loc: [place] [address] Phys: Hermann River DO Acct: [id number] Dis Date: Status: ADM IN PHONE #: [phone] Exam Date: 12/13/2018 1432 FAX #: [phone] Reason: chest pain/left sided numbness EXAMS: CPT CODE: [id number] CTA CHEST 17046 REASON FOR EXAM: chest pain/left sided numbness [...] Narvaez RT(R)(CT) CTDI: DLP: Trnscb Date/Time: 12/13/2018 (5704) Shaina Orig Print D/T: S: 12/13/2018 (4636) PAGE 1 Signed Report TROPONIN-I 2018-12-13 13:52:00* Test Item Value Reference Range Interpretation Comments TROPONIN-I (test code = TROPI) <0.015 ng/mL 0-0.045 N PROTHROMBIN FZVC6553-78-80 13:36:00* Test Item Value Reference Range Interpretation [...] (2.5-3.5) IS PATIENT ON ANTICOAGULANTS? NTHROMBOPLASTIN TIME ELVZLFI7323-21-41 13:36:00* Test Item Value Reference Range Interpretation Comments THROMBOPLASTIN TIME PARTIAL (test code = PTT) 31.4 seconds 25.0-36. 5 N IS PATIENT ON ANTICOAGULANTS? N- CT HEAD/BRAIN W/O [id number] 13:29:00 Name: DILMA BARNARD [facility] : 1970 Age/S: 48 / F [address] [facility] Unit #: [id number] Loc: [facility] [place] [address] Phys: Hermann River DO Acct: [id number] Dis Date: Status: REG ER PHONE #: Exam Date: 12/13/2018 1304 FAX #: [phone] Reason: left sided numbness EXAMS: CPT CODE: [id number] CT HEAD/BRAIN W/O CONT 05463 HISTORY: Left-sided numbn ess. COMPARISON: CT head [...] (1329) t.SDR.TH4 Orig Print D/T: S: 12/13/2018 (1035) PAGE 1 Signed Report TROPONIN I [id number] 13:15:00* Test Item Value Reference Range Interpretation [...] be valid only if similarmethodology is used. [id number] 13:02:00* Test Item Value Reference Range Interpretation Comments GLUBED (test code = GLUBED) 272 mg/dL 74-106 H Performed by certified tool room lathe operator at [facility] URINALYSIS GSNBASVK6579-78-90 10:20:00* Test Item Value Reference Range Interpretation [...] #/HPF NONE Urine Source? Clean CatchBASIC METABOLIC OCWYX4780-08-67 10:11:00* Test Item Value Reference Range Interpretation [...] code = CA) 10.0 mg/dL 8.5-10.1 N ZCQQADOF-P1070-30-06 10:11:00* Test Item Value Reference Range Interpretation Comments TROPONIN-I (test code = TROPI) <0.015 ng/mL 0-0.045 N HEPATIC FUNCTION [id number] 10:11:00* Test Item Value Reference Range Interpretation [...] due to change in reagent. BASIC METABOLIC TIHXK7428-22-00 10:05:00* Test Item Value Reference Range Interpretation [...] code = CA) 10.0 mg/dL 8.5-10.1 N PPYWBZIL-B3648-65-06 10:05:00* Test Item Value Reference Range Interpretation Comments TROPONIN-I (test code = TROPI) ng/mL 0-0.045 HCG SERUM AVOL1893-15-49 09:56:00* Test Item Value Reference Range Interpretation Comments HCG SERUM QUAL (test code = HCGQL) NEGATIVE NEGATIVE This HCGQL test is NOT applicable for MALE patients.Check with nurse about probable order error.If Tumor Marker Test needed, nurse should order test "HCGTU"(Test #550.21644) - CT ABD PELVIS W/O [id number] 09:55:00 Name: DILMA BARNARD [facility] : 1970 Age/S: 48 / F [address] [facility] Unit #: [id number] [place]: [place] [address] Phys: Hermann River DO Acct: [id number] Dis Date: Status: REG ER PHONE #: [phone] Exam Date: 12/13/2018 0934 FAX #: [phone] Reason: Right flank pain EXAMS: CPT CODE: [id number] CT ABD PELVIS W/O CONT 75417 HISTORY: Right flank pain. COMPARISON: CT scan [...] Signed Report (CONTINUED) Name: Liat BARNARD [facility] : 1970 Age /S: 48 / F [address] [facility] Unit #: [id number] Loc: [place] [address] Phys: Hermann River DO Acct: [id number] Dis Date: Status: REG ER PHONE #: [phone] Exam Date: 12/13/2018933 FAX #: [phone] Reason: Right flank pain EXAMS: CPT CODE: [id number] CT ABD PELVIS W/O CONT 95184 <Continued> Normal appendix without bowel obstruction or colitis or diverticulitis or enteritis. Constipation. at 0955 Reported and signed by: Km Delgado M.D. CC: Mable Antony MD; Hermann River DO Technologist:Herman Narvaez RT(R)(CT) CTDI: DLP: Trnscb Date/Time: 12/13/2018 (954) [email or web address] Orig Print D/T: S: 12/13/2018 (957) PAGE 2 Signed Report CBC W/O [id number] 09:53:00* Test Item Value Reference Range Interpretation [...] fL 6.7-11.0 N - XR CHEST 1 [id number] 08:44:00 FAX: Mable Tomas MD [phone] [place]: St: [facility] FAX: Peter Ramirez NP [phone] Name: DILMA BARNARD [facility] : 1970 Age/S: 48/F [address] [facility] Unit #: [id number] Loc: [place] [address] Phys: Peter Ramirez NP Acct: [id number] Dis Date: Status: REG ER PHONE #: [phone] Exam Date: 12/13/2018 0835 FAX #: [phone] Reason: CHEST PAIN EXAMS: CPT CODE: [id number] XR CHEST 1 V 08445 HISTORY: Chest pain. COMPARISON: February 25, 2017. No acute infiltrates, effusion or congestion is noted. Suboptimal inspiration. Dependent changes. Cardiomegaly. IMPRESSION: No acute infiltrates, effusion or congestion. at 0844 Reported and signed by: Km Delgado M.D. CC: Mable Antony MD; Peter Ramirez NP Technologist: Viola Marino) Trnscrd Date/Time/By: 12/13/2018 (44) : By: [email or web address] Orig Print D/T: S: 12/13/2018 (0442) PAGE 1 Signed Report [id number] 08:16:00* Test Item Value Reference Range Interpretation Comments GLUBED (test code = GLUBED) 393 mg/dL 74-106 H Performed by certified tool room lathe operator at [facility] Creatine Kinase [id number] 14:10:00* Test Item Value Reference Range Interpretation Comments Creatine Kinase MB (test code = 97842-8) 0.90 0.00-5.00 [facility] TomballTroponin [id number] 14:10:00* Test Item Value Reference Range Interpretation Comments Troponin I (test code = 42948-6) 0.005 0-0.300 [facility] TomballWhite Blood Deszb4080-66-25 14:06:00* Test Item Value Reference Range Interpretation Comments White Blood Count (test code = 6690-2) 8.40 4.8-10.8 [facility] TomballRed Blood Enrqx1790-83-84 14:06:00* Test Item Value Reference Range Interpretation Comments Red Blood Count (test code = 789-8) 4.79 3.6-5.1 [facility] TomballHemoglobin2018-02-08 14:06:00* Test Item Value Reference Range Interpretation Comments Hemoglobin (test code = 62309-7) 14.1 12.0-16.0 [facility] TomballHematocrit2018-02-08 14:06:00* Test Item Value Reference Range Interpretation Comments Hematocrit (test code = 4544-3) 41.6 34.2-44.1 [facility] TomballMean Corpuscular Opguzv8635-96-05 14:06:00* Test Item Value Reference Range Interpretation Comments Mean Corpuscular Volume (test code = 787-2) 86.8 81-99 [facility] TomballMean Corpuscular Mgowlkybyk3882-42-64 14:06:00* Test Item Value Reference Range Interpretation Comments Mean Corpuscular Hemoglobin (test code = 785-6) 29.4 28-32 [facility] TomballMean Corpuscular Hemoglobin Concent 2017-08-17 14:06:00* Test Item Value Reference Range Interpretation Comments Mean Corpuscular Hemoglobin Concent (test code = 786-4) 33.9 31-35 [facility] TomballRed Cell Distribution Bqvmi3467-47-82 14:06:00* Test Item Value Reference Range Interpretation Comments Red Cell Distribution Width (test code = 42186-3) 13.1 11.7 -14.4 [facility] TomballPlatelet Xbrpq9961-59-85 14:06:00* Test Item Value Reference Range Interpretation Comments Platelet Count (test code = 777-3) 289 140-360 [facility] TomballNeutrophils (%) (Auto)2017-08-17 14:06:00 * Test Item Value Reference Range Interpretation Comments Neutrophils (%) (Auto) (test code = 63011-6) 52.0 38.7-80.0 [facility] TomballLymphocytes (%) (Auto)2017-08-17 14:06:00 * Test Item Value Reference Range Interpretation Comments Lymphocytes (%) (Auto) (test code = 736-9) 40.5 18.0-39.1 H [facility] TomballMonocytes (%) (Auto)2017-08-17 14:06:00* Test Item Value Reference Range Interpretation Comments Monocytes (%) (Auto) (test code = 5905-5) 5.2 4.4-11.3 [facility]ballEosinophils (%) (Auto)2017-08-17 14:06:00 * Test Item Value Reference Range Interpretation Comments Eosinophils (%) (Auto) (test code = 713-8) 1.9 0.0-6.0 [facility] TomballBasophils (%) (Auto)2017-08-17 14:06:00* Test Item Value Reference Range Interpretation Comments Basophils (%) (Auto) (test code = 706-2) 0.2 0.0-1.0 [facility] TomballIM GRANULOCYTES %2017-08-17 14:06:00* Test Item Value Reference Range Interpretation Comments IM GRANULOCYTES % (test code = IM GRANULOCYTES %) 0.2 0.0- 1.0 [facility] TomballNeutrophils # (Auto)2017-08-17 14:06:00* Test Item Value Reference Range Interpretation Comments Neutrophils # (Auto) (test code = 751-8) 4.4 2.1-6.9 [facility] TomballLymphocytes # (Auto)2017-08-17 14:06:00* Test Item Value Reference Range Interpretation Comments Lymphocytes # (Auto) (test code = 01299-8) 3.4 1.0-3.2 H [facility] TomballMonocytes # (Auto)2017-08-17 14:06:00* Test Item Value Reference Range Interpretation Comments Monocytes # (Auto) (test code = 742-7) 0.4 0.2-0.8 [facility] TomballEosinophils # (Auto)2017-08-17 14:06:00* Test Item Value Reference Range Interpretation Comments Eosinophils # (Auto) (test code = 711-2) 0.2 0.0-0.4 [facility] TomballBasophils # (Auto)2017-08-17 14:06:00* Test Item Value Reference Range Interpretation Comments Basophils # (Auto) (test code = 704-7) 0.0 0.0-0.1 [facility] TomballAbsolute Immature Granulocyte (auto 2017-08-17 14:06:00* Test Item Value Reference Range Interpretation Comments Absolute Immature Granulocyte (auto (verona t code = Absolute Immature Granulocyte (auto) 0.02 0-0.1 [facility] TomballProthrombin Cyil3081-59-60 14:06:00* Test Item Value Reference Range Interpretation Comments Prothrombin Time (test code = 5902-2) 11.7 11.9-14.5 L [facility] TomballProthromb Time International Ratio 2017-08-17 14:06:00* Test Item Value Reference Range Interpretation Comments Prothromb Time International Ratio (test code = 6301-6) 0.82 Oral Anticoagulant Therapy INR Values:1. Low Intensity Therapy 1.5 - 2.02 . Moderate Intensity Therapy 2.0 - 3.03. High Intensity Therapy(1) 2.5 - 3. 54. High Intensity Therapy(2) 3.0 - 4.05. Panic Value INR > 5.0 [facility]ballActivated Partial Thromboplast Time 2017-08-17 14:06:00* Test Item Value Reference Range Interpretation Comments Activated Partial Thromboplast Time (test code = 36188-3) 26.9 23.8-35.5 [facility] Psrba5151-21-60 13:59:00* Test Item Value Reference Range Interpretation Comments Sodium Level (test code = 2951-2) 140 136-145 [facility]ballPotassium Mmaqn0522-50-19 13:59:00* Test Item Value Reference Range Interpretation Comments Potassium Level (test code = 2823-3) 4.0 3.5-5.1 [facility]ballChloride Jeujb2278-95-51 13:59:00* Test Item Value Reference Range Interpretation Comments Chloride Level (test code = 2075-0) 108 98-107 H [facility] TomballCarbon Dioxide Vqopz9523-10-29 13:59:00* Test Item Value Reference Range Interpretation Comments Carbon Dioxide Level (test code = 2028-9) 22 22-29 [facility] TomballAnion Ogt2960-31-44 13:59:00* Test Item Value Reference Range Interpretation Comments Anion Gap (test code = 00742-7) 14.0 8-16 [facility]ballBlood Urea Rogjhukp1243-73-55 13:59:00* Test Item Value Reference Range Interpretation Comments Blood Urea Nitrogen (test code = 3094-0) 12 7-26 [facility] TomballCreatinine2018-02-08 13:59:00* Test Item Value Reference Range Interpretation Comments Creatinine (test code = 2160-0) 0.70 0.57-1.11 [facility]ballBUN/Creatinine Ahifd5868-50-26 13:59:00* Test Item Value Reference Range Interpretation Comments BUN/Creatinine Ratio (test code = 3097-3) 17 6-25 [facility] TomballEstimat Glomerular Filtration Rate 2017-08-17 13:59:00* Test Item Value Reference Range Interpretation Comments Estimat Glomerular Filtration Rate (test code = 17317-1) 60- >60 Ranges were taken from the National Kidney Disease Education Program and the [facility] Kidney Foundation literature.Reference ranges:60 or greater: Skxbqd52-32 ( for 3 consecutive months): Chronic kidney disease 15 or less: Kidney failureH[facility] Healthcare TomballGlucose Ajizm7744-80-47 13:59:00* Test Item Value Reference Range Interpretation Comments Glucose Level (test code = FED8985) 151 74-118 H [facility] TomballCalcium Pwuyg1058-78-39 13:59:00* Test Item Value Reference Range Interpretation Comments Calcium Level (test code = 38529-8) 9.8 8.4-10.2 [facility] TomballTotal Kmncesubj9134-48-34 13:59:00* Test Item Value Reference Range Interpretation Comments Total Bilirubin (test code = 1975-2) 0.6 0.2-1.2 [facility] TomballAspartate Amino Transf (AST/SGOT) 2017-08-17 13:59:00* Test Item Value Reference Range Interpretation Comments Aspartate Amino Transf (AST/SGOT) (test code = Aspartate Amino Transf (AST/SGOT)) 22 5-34 [facility] TomballAlanine Aminotransferase (ALT/SGPT) 2017-08-17 13:59:00* Test Item Value Reference Range Interpretation Comments Alanine Aminotransferase (ALT/SGPT) (test code = 1742-6) 37 0-55 [facility] TomballTotal Lywgbhg5868-85-97 13:59:00* Test Item Value Reference Range Interpretation Comments Total Protein (test code = 2885-2) 8.1 6.5-8.1 [facility] TomballAlbumin2018-02-08 13:59:00* Test Item Value Reference Range Interpretation Comments Albumin (test code = 1751-7) 3.9 3.5-5.0 [facility] TomballGlobulin2018-02-08 13:59:00* Test Item Value Reference Range Interpretation Comments Globulin (test code = 61956-4) 4.2 2.3-3.5 H [facility] TomballAlbumin/Globulin Ysohz7117-28-88 13:59:00 * Test Item Value Reference Range Interpretation Comments Albumin/Globulin Ratio (test code = 1759-0) 0.9 0.8-2.0 [facility] TomballAlkaline Vlplfazbmzw2828-59-13 13:59:00* Test Item Value Reference Range Interpretation Comments Alkaline Phosphatase (test code = 6768-6) 111 40-150 [facility] TomballCreatine Rguzlh1434-11-97 13:59:00* Test Item Value Reference Range Interpretation Comments Creatine Kinase (test code = 2157-6) 64 29-168 [facility]ballCHEST SINGLE (PORTABLE) [facility] [address] [address] Patient Name: DILMA BARNARD MR #: [id number] : 1970 Age/Sex: 47/F Req #: [id number] Adm Physician: Ordered by: DORA SHARP MD Report #: [id number] Location: ER Room/Bed: Procedure: [id number] DX/CHEST SINGLE (PORTABLE) E xam Date: 08/17/17 [...] TO: DORA SHARP MD CT BRAIN WO [place] [address] Patient Name: DILMA BARNARD MR #: [id number] : 1970 Age/Sex: 47/F Req #: [id number] Adm Physician: Ordered by: DORA SHARP MD Report #: [id number] Location: ER Room/Bed: Procedure: [id number] CT/CT BRAIN WO Exam Date: Exam Time: [...] Signed By: JANNY WOO MD on 08/17/17 1302 Transcribed By: MONSERRAT on 08/17/17 1301 COPY TO: DORA SHARP MD
[2020-03-01] MEDS: SODIUM CHLORIDE 0.9% 1000ML 1,000 ML IV SCH ×2 (02:36→10:06)
[2020-03-01] MEDS: ENOXAPARIN SOD INJ 40 MG/0.4 ML SYR SC SCH ×3 (02:36→21:00)
[2020-03-01] MEDS: ACETAMINOPHEN 325 MG TAB PO PRN ×3 (03:00→16:52)
--- NOTE | 2020-03-01 03:14 | NUR ---
RECEIVED PATIENT FROM EMS SAFELY IN STABLE CONDITION, NO SIGNS OF DISTRESS NOTED. IV FLUIDS ARE RUNNING AT ORDERED RATE, PATIENT VOICES A HEADACHE AT A LEVEL OF 9 AND WAS MEDICATED ORDERED. NASAL CANNULA IS PATENT AND FLOWING AT 2 LITERS AND VITALS ARE STABLE. BED IS IN LOWEST POSITION, BOTH SIDE RAILS ARE UP, CALL LIGHT IS WITHIN EASY REACH, WILL CONTINUE TO MONITOR.
[2020-03-01] MEDS ORDERED: DEXTROSE 50% SYRINGE 50 ML IV PRN (08:15)
[2020-03-01] MEDS ORDERED: METHYLPREDNISOLONE SOD SUCC 125 MG/2ML VIAL IV SCH (09:00)
[2020-03-01] MEDS: METFORMIN HCL 500 MG TAB CR PO SCH ×2 (09:16→16:52)
[2020-03-01] MEDS: LISINOPRIL 20 MG TAB PO SCH (09:16)
[2020-03-01] MEDS: INSULIN LISPRO 100 UNIT/1 ML 3ML VIAL SQ SCH ×4 (09:16→21:00)
[2020-03-01] MEDS: DEXAMETHASONE SOD PHOS 10 MG/1 ML VIAL IV SCH (09:16)
[2020-03-01] MEDS: INSULIN GLARGINE 100 UNITS/ML VIAL SQ SCH ×2 (09:20→21:00)
--- NOTE | 2020-03-01 09:20 | NUR ---
PATIENT IS AWAKE, ALERT, AND IN STABLE CONDITION WITH NO S/S OF RESPIRATORY DISTRESS. PATIENT C/O HEADACHE PAIN 04/18. TELEMETRY APPLIED. O2 APPLIED AT 2L NC. IV FLUIDS INFUSING. CALL LIGHT IS WITHIN REACH, PATIENT INSTRUCTED TO CALL FOR ASSISTANCE NEEDED.
[2020-03-01 09:21] LABS: CREATINE KINASE MB 0.3 ng/mL (0-5.0)
[2020-03-01 11:03] LABS: BASOPHILS % 0.2 % (0.0-1.0); HEMATOCRIT 40.5 % (34.2-44.1); HEMOGLOBIN 13.6 g/dL (12.0-16.0); LYMPHOCYTES # (AUTO) 0.7 (1.0-3.2); LYMPHOCYTES % 13.1 % (18.0-39.1); MEAN CORPUSCULAR HEMOGLOBIN 29.9 pg (28-32); MEAN CORPUSCULAR HGB CONC 33.6 g/dL (31-35); MONOCYTES # (AUTO) 0.1 (0.2-0.8); MONOCYTES % 1.9 % (4.4-11.3); NEUTROPHILS # (AUTO) 4.4 (2.1-6.9); NEUTROPHILS % 84.2 % (38.7-80.0); PLATELET COUNT 210 x10e3/uL (140-360); RED BLOOD COUNT 4.55 x10e6/uL (3.6-5.1); RED CELL DISTRIBUTION WIDTH 12.8 % (11.7-14.4)
[2020-03-01 11:17] LABS: ALANINE AMINOTRANSFERASE 37 IU/L (0-55); ALBUMIN 3.4 g/dL (3.5-5.0); ALBUMIN/GLOBULIN RATIO 0.9 (0.8-2.0); ALKALINE PHOSPHATASE 110 IU/L (40-150); ANION GAP 19.6 mmol/L (8-16); BLOOD UREA NITROGEN 11 mg/dL (7-26); BUN/CREATININE RATIO 15 (6-25); CALCIUM 9.5 mg/dL (8.4-10.2); CARBON DIOXIDE 17 mmol/L (22-29); CHLORIDE 107 mmol/L (98-107); CREATININE, SERUM 0.72 mg/dL (0.57-1.11); EST GLOMERULAR FILTRATION RATE > 60 ML/MIN (60-); GLUCOSE 360 mg/dL (74-118); POTASSIUM 4.6 mmol/L (3.5-5.1); SODIUM 139 mmol/L (136-145)
--- NOTE | 2020-03-01 12:16 | History and Physical ---
CHIEF COMPLAINT: Shortness of breath. HISTORY OF PRESENT ILLNESS: This is a 50-year-old woman, who presents to [facility] Emergency Room with a 1-day history of worsening shortness of breath, wheezing, and cough. The patient states she has not done well for a week, but the shortness of breath and wheezing began on Saturday February 29, 2020. The patient states on February 24, 2020, she went to a local pharmacy and underwent COVID-19 testing. The patient states that she found out a couple of days ago that she was COVID-19 positive. In the emergency room, the patient was found to have ox saturation is 94% on 2 L oxygen. In the emergency room, the patient underwent chest x-ray revealed multifocal bilateral patchy haziness that the radiologist thought could be pneumonia. The patient was found to have white blood cell count of 5200 with 84% segmented neutrophils. The patient's hemoglobin is 13.6 g/dL. Also, the patient was found to have elevated glucose level 415 mg/dL, but she did receive intravenous methylprednisolone in the emergency room. The patient's hemoglobin A1c was 10.3%. The patient also states that for the past few days she has had burning with urination. PAST MEDICAL HISTORY: 1. Lumbar disk disease. 2. Extreme obesity BMI 52. 3. Type diabetes with neuropathy. 4. Hypertensive heat disease. 5. Fatty liver disease. 6. Hyperlipidemia. 7. Tobacco abuse (quit July 2019). PAST SURGICAL HISTORY: 1. Total abdominal hysterectomy with bilateral salpingo-oophorectomy. 2. Laparoscopic cholecystectomy. 3. Left hand tendon repair. 4. D and C after miscarriage. SOCIAL HISTORY: This woman from . She lives with her adult son. The patient was a tobacco smoker, but quit in July 2019. No history of alcohol use. She is unemployed. FAMILY HISTORY: Mother and father had diabetes, hypertension, and cerebrovascular disease. Her mother of congestive heart failure. ALLERGIES: 1. CLINDAMYCIN. 2. LEVOFLOXACIN. CURRENT MEDICATIONS: 1. Atorvastatin 20 mg at bedtime. 2. Glimepiride 2 mg b.i.d. 3. Lisinopril 20 mg daily. 4. Metformin 500 mg b.i.d. REVIEW OF SYSTEMS: GENERAL: Weight has been stable. No fever and chills but complains of body aches for the last 24 hours. HEENT: No headaches. No visual changes. RESPIRATORY: Worsening shortness of breath, cough, and wheezing for the last 24 hours. GI: Complains of diarrhea started yesterday. No nausea, vomiting. : Complains of burning with urination in the past couple of days. NEUROMUSCULAR: No limb weakness, but her feet do burn secondary to diabetic neuropathy. PHYSICAL EXAMINATION: GENERAL: She is awake, alert and fully oriented. She does not appear to be in any respiratory distress. She is very pleasant and cooperative with exam. VITAL SIGNS: Height 4 feet 11 inches, weight 260 pounds, BMI 52, blood pressure currently is 130/96, pulse is 78, respiratory rate 22, oxygen saturation is 100% on 2 L oxygen, temperature 97.8. INTEGUMENT: Skin is warm and dry. No pallor, jaundice, diaphoresis. HEENT: Anicteric sclerae. Moist mucous membranes. NECK: Supple. CARDIOVASCULAR: Distant heart sounds. Regular rhythm. LUNGS: Trace diminished breath sounds at bases with faint rhonchi on the left base. ABDOMEN: Obese, benign. EXTREMITIES: No edema or deformity. NEUROLOGIC: Intact. DIAGNOSES: 1. Coronavirus disease-19 infection. 2. Bilateral pneumonia. 3. Extreme obesity, BMI 52. 4. Uncontrolled type 2 diabetes. 5. Hypertensive heart disease. PLAN: 1. Intravenous azithromycin. 2. Wean off oxygen. 3. Intravenous dexamethasone. 4. Blood glucose control. 5. Blood pressure control. 6. Consult Infectious Disease specialist. 7. Consult Pulmonary/behavioral intervention specialist. I spent 45 minutes in the care of the patient. MD ALAN Hawthorne/JIGAR /[id number] LARRY
[2020-03-01 13:16] LABS: CLARITY,URINE CLEAR (CLEAR); COLOR,URINE YELLOW (YELLOW); LEUKOCYTE ESTERASE ,URINE NEGATIVE (NEGATIVE)
[2020-03-01 13:17] LABS: BACTERIA,URINE RARE /HPF; BILIRUBIN,URINE NEGATIVE (NEGATIVE); EPITHELIAL CELLS,URINE FEW /LPF; KETONES,URINE 1+ (NEGATIVE); NITRITE,URINE NEGATIVE (NEGATIVE); PROTEIN,URINE DIPSTICK NEGATIVE (NEGATIVE); RBC,URINE 0-5 /HPF (0-5); URINE UROBILINOGEN 0.2 mg/dL (0.2 - 1); WBC,URINE (MAN) 0-5 /HPF (0-5)
[2020-03-01] MEDS ORDERED: ALBUTEROL SULFATE HFA 8GM INHALATION AEROSOL INH PRN (14:00)
--- NOTE | 2020-03-01 15:23 | Consultation ---
DATE OF CONSULTATION: Pulmonary Critical Care Consultation CHIEF COMPLAINT: Fatigue and dyspnea. HISTORY OF PRESENT ILLNESS: The patient is a 50-year-old woman. She has a history of sinus congestion, fatigue for about 8 days. She noted some fevers and a little bit of nausea. One or two days ago, she had worsening dyspnea. She came to the emergency department. She was found to have a saturation of 84%. She was placed on 2 L of oxygen. PAST MEDICAL HISTORY: 1. Lower back pain. 2. No prior history of asthma. 3. Diabetes that does not require insulin. 4. No prior heart problems. PAST SURGICAL HISTORY: 1. Status post hysterectomy. 2. Status post cholecystectomy. 3. Status post tendon repairs. SOCIAL HISTORY: The patient quit smoking 8 months ago. She does not drink alcohol. FAMILY HISTORY: Her mother had congestive heart failure. She also has a history of diabetes and hypertension. ALLERGIES: THE PATIENT IS ALLERGIC TO CLINDAMYCIN AND LEVOFLOXACIN. REVIEW OF SYSTEMS: The patient is afebrile. She has no headache. She is not complaining of any neck pain. She does have some fatigue. She reports some dyspnea. She has no chest pain. She has no cough. She is not having any abdominal pain. She has no nausea or vomiting. She has no leg edema. PHYSICAL EXAMINATION: VITAL SIGNS: The patient is afebrile. The blood pressure is 120/85, saturation is 100% on 2 L. Pulse is 85. HEENT: Shows no facial swelling or erythema. LYMPHATIC: Shows no submandibular, cervical, or supraclavicular adenopathy. CARDIAC: Reveals a regular rate and rhythm. Normal S1, S2. LUNGS: Auscultation of lungs reveals rhonchorous breath sounds bilaterally. There is wheezing. ABDOMEN: Soft, nontender. There is no rebound or guarding. EXTREMITIES: Shows no leg edema or calf tenderness. There is no cyanosis or clubbing. SKIN: Shows no rashes. NEUROLOGICAL: Shows no focal abnormalities. LABORATORY DATA: White blood cell count is 5.3 and hemoglobin is 13.6. The platelet count is 210,000. The BUN to creatinine ratio is normal. The carbon dioxide is 17 and the chloride is 107. Blood sugar is 334 to 348. Albumin is 3.4. RADIOGRAPHIC DATA: Chest x-ray shows bilateral infiltrates. IMPRESSION: 1. Acute respiratory failure. 2. Viral pneumonia and coronavirus disease - 19 infection. 3. Type 2 diabetes. 4. Hypertension. PLAN: 1. The patient has been started on dexamethasone. 2. Continue Zithromax and Rocephin. 3. Continue oxygen. 4. Monitor and control blood sugars. 5. The patient should be a candidate for remdesivir. MD BESS Ashford/MODL /[id number]
[2020-03-01] MEDS ORDERED: REMDESIVIR 200MG/NS 100ML 200 MG in SODIUM CHLORIDE 0.9% 100 ML 100 ML IV ONE (16:15)
--- NOTE | 2020-03-01 17:03 | Consultation ---
DATE OF CONSULTATION: HISTORY OF PRESENT ILLNESS: Ms. Decker is here for shortness of breath. Apparently, this patient has been sick for one week. The patient comes in from . COVID-19 came back positive. When I saw her, she is alert, oriented, does not seem to be in acute distress. PAST MEDICAL HISTORY: 1. Osteoarthritis. 2. Obesity. 3. Diabetes mellitus. 4. Neuropathy. 5. Liver disease, fatty liver. PAST SURGICAL HISTORY: Hysterectomy. SOCIAL HISTORY: There is no smoking, drug abuse, or alcohol abuse. FAMILY HISTORY: She has a family history of diabetes. ALLERGIES: CLINDAMYCIN AND LEVAQUIN. MEDICATIONS: She is currently on atorvastatin, lisinopril, metformin. REVIEW OF SYSTEMS: At present time, she had shortness of breath and cough. LABORATORY DATA: White count 5.25, hemoglobin 13. Her sodium 139, potassium 4.6, creatinine . Liver enzyme within normal limits. Her COVID-19 still pending here, but she had a confirmed test as an outpatient. Her chest x-ray showed multifocal bilateral patchy opacity. PHYSICAL EXAMINATION: GENERAL: The patient is currently alert, oriented. VITAL SIGNS: Stable and currently afebrile. HEENT: She is not icteric. NECK: Supple. CHEST: Crackles bilateral. HEART: S1 and S2. No S3, S4, or murmur. ABDOMEN: Soft. Bowel sounds present. EXTREMITIES: No edema. SKIN: No rash. IMPRESSION: COVID-19, respiratory failure. Discussed with the patient. We talked about remdesivir. She is aware that it is still investigational drug, FDA approved it. However, she did agree to take it. She is aware she can stop at any time. We will start 200 mg now and then 100 daily and finish 5 days course. We will give her Rocephin 2 g daily, azithromycin 500 mg daily for 3 days, Decadron 6 mg daily for 10 days. The patient is aware. We talked about also convalescent plasma. The patient does not want to take it. We will follow. MD YELENA Gillette/JIGAR /[id number]
[2020-03-01 17:40] LABS: CREATINE KINASE 19 IU/L (29-168)
--- NOTE | 2020-03-01 19:21 | NUR ---
PATIENT IN STABLE CONDITION WITH NO S/S OF RESPIRATORY DISTRESS. NO PAIN VOICED. 02 APPLIED AT 2L NC. CALL LIGHT IS WITHIN REACH, PATIENT INSTRUCTED TO CALL FOR ASSISTANCE NEEDED. REPORT GIVEN TO ONCOMING NURSE.
--- NOTE | 2020-03-01 21:00 | NUR ---
PATIENT IN STABLE CONDITION, NO SIGNS OF DISTRESS NOTED. PATIENT REQUESTS SHOWER AND PREPARATIONS WERE MADE TO ACCOMMODATE, HEADACHE AT A LEVEL OF 9 AND WAS MEDICATED ORDERED. NASAL CANNULA IS PATENT AND FLOWING AT 2 LITERS AND VITALS ARE STABLE. BED IS IN LOWEST POSITION, BOTH SIDE RAILS ARE UP, CALL LIGHT IS WITHIN EASY REACH, WILL CONTINUE TO MONITOR.
[2020-03-01] MEDS: AZITHROMYCIN 500MG/NS 250 ML 250 ML IV SCH (22:11)
[2020-03-01] MEDS: ZOLPIDEM TARTRATE 5 MG TAB PO PRN (22:11)
[2020-03-01] MEDS: IBUPROFEN 600 MG TAB PO PRN (23:10)
[2020-03-01] MEDS: CEFTRIAXONE SOD 1 GM/NS 50 ML 50 ML IV SCH (23:35)
[2020-03-02] VITALS (7 sets, daily range): BP systolic 117–152; BP diastolic 52–105
[2020-03-02 06:53] LABS: BASOPHILS % 0.2 % (0.0-1.0); HEMATOCRIT 37.7 % (34.2-44.1); HEMOGLOBIN 12.6 g/dL (12.0-16.0); LYMPHOCYTES # (AUTO) 2.2 (1.0-3.2); LYMPHOCYTES % 20.1 % (18.0-39.1); MEAN CORPUSCULAR HEMOGLOBIN 29.8 pg (28-32); MEAN CORPUSCULAR HGB CONC 33.4 g/dL (31-35); MEAN CORPUSCULAR VOLUME 89.1 fL (81-99); MONOCYTES # (AUTO) 0.3 (0.2-0.8); MONOCYTES % 2.9 % (4.4-11.3); NEUTROPHILS # (AUTO) 8.3 (2.1-6.9); NEUTROPHILS % 76.5 % (38.7-80.0); PLATELET COUNT 207 x10e3/uL (140-360); RED BLOOD COUNT 4.23 x10e6/uL (3.6-5.1); RED CELL DISTRIBUTION WIDTH 12.7 % (11.7-14.4)
--- NOTE | 2020-03-02 07:00 | NUR ---
received bedside report. pt is alert sitting up in bed, no s/s of distress. bed safety in place and call light within reach, instructed pt to call for help
[2020-03-02 07:38] LABS: ALANINE AMINOTRANSFERASE 30 IU/L (0-55); ALBUMIN 3.1 g/dL (3.5-5.0); ALBUMIN/GLOBULIN RATIO 0.9 (0.8-2.0); ALKALINE PHOSPHATASE 97 IU/L (40-150); BLOOD UREA NITROGEN 12 mg/dL (7-26); BUN/CREATININE RATIO 19 (6-25); CALCIUM 9.4 mg/dL (8.4-10.2); CARBON DIOXIDE 22 mmol/L (22-29); CHLORIDE 106 mmol/L (98-107); CREATININE, SERUM 0.64 mg/dL (0.57-1.11); EST GLOMERULAR FILTRATION RATE > 60 ML/MIN (60-); GLUCOSE 195 mg/dL (74-118); SODIUM 137 mmol/L (136-145)
[2020-03-02] MEDS: INSULIN LISPRO 100 UNIT/1 ML 3ML VIAL SQ SCH ×7 (08:00→21:10)
[2020-03-02] MEDS: ENOXAPARIN SOD INJ 40 MG/0.4 ML SYR SC SCH ×2 (08:18→20:43)
[2020-03-02] MEDS: LISINOPRIL 20 MG TAB PO SCH (08:18)
[2020-03-02] MEDS: DEXAMETHASONE SOD PHOS 10 MG/1 ML VIAL IV SCH (08:18)
[2020-03-02] MEDS: ACETAMINOPHEN 325 MG TAB PO PRN (08:18)
[2020-03-02] MEDS: INSULIN GLARGINE 100 UNITS/ML VIAL SQ SCH ×2 (08:18→21:00)
[2020-03-02] MEDS: METFORMIN HCL 500 MG TAB CR PO SCH ×2 (08:18→16:45)
[2020-03-02] MEDS: IBUPROFEN 600 MG TAB PO PRN ×2 (11:15→22:09)
[2020-03-02] MEDS ORDERED: SODIUM CHLORIDE 0.9% 250ML 250 ML ONE (13:38)
[2020-03-02] MEDS: REMDESIVIR 100MG/NS 100ML 100 MG in SODIUM CHLORIDE 0.9% 100 ML 100 ML IV SCH (13:46)
--- NOTE | 2020-03-02 14:44 | NUR ---
infectious disease progress note March 02, 2020 Patient is feeling better however she remains shortness of breath especially if she walks to the bathroom she gets dizzy and lightheaded she also having headache. Her review of system otherwise is otherwise remarkable for breathing is better her physical examination she is currently alert oriented vitals stable currently afebrile HEENT normocephalic not pale not icteric. neck supple chest clear bilateral heart abdomen soft bursa present extremities no edema skin there is no rash. lab data reviewed chart reviewed review of system otherwise negative her lab was located a pinpoint impression covert 19 on admission continue with plan is o rdered superimposed bacterial pneumonia continue plan as ordered the patient remains hypoxemic with exertion keep in the hospital continue oxygen. Will reassess in the morning
--- NOTE | 2020-03-02 17:45 | NUR ---
RN collected urine and vaginal swab for cultures and took to lab
--- NOTE | 2020-03-02 19:50 | NUR ---
Received the pt in report.lyeing in the bed.head ache voiced.medication given.bed locked and in lowest position.call light within reach.instructed to call for assistance as needed.
[2020-03-02] MEDS: ZOLPIDEM TARTRATE 5 MG TAB PO PRN (21:00)
[2020-03-02] MEDS: AZITHROMYCIN 500MG/NS 250 ML 250 ML IV SCH (21:58)
[2020-03-02] MEDS: CEFTRIAXONE SOD 1 GM/NS 50 ML 50 ML IV SCH (23:45)
[2020-03-03] VITALS (8 sets, daily range): BP systolic 118–147; BP diastolic 73–93
[2020-03-03] MEDS: ACETAMINOPHEN 325 MG TAB PO PRN ×2 (03:47→13:49)
--- NOTE | 2020-03-03 06:18 | NUR ---
Covid 19 test report became positive.
--- NOTE | 2020-03-03 06:59 | NUR ---
REPORT GIVEN TO ONCOMING RN.STABLE CONDITION.
[2020-03-03] MEDS: METFORMIN HCL 500 MG TAB CR PO SCH ×2 (08:14→18:30)
[2020-03-03] MEDS: LISINOPRIL 20 MG TAB PO SCH (08:14)
[2020-03-03] MEDS: ENOXAPARIN SOD INJ 40 MG/0.4 ML SYR SC SCH ×2 (08:14→20:52)
[2020-03-03] MEDS: INSULIN LISPRO 100 UNIT/1 ML 3ML VIAL SQ SCH ×7 (08:14→21:10)
[2020-03-03] MEDS: IBUPROFEN 600 MG TAB PO PRN ×2 (08:14→20:01)
[2020-03-03] MEDS: INSULIN GLARGINE 100 UNITS/ML VIAL SQ SCH ×2 (08:15→21:00)
[2020-03-03 08:17] LABS: HIV 1&2 AB SCREEN NON-REACTIVE (NONREACTIVE)
[2020-03-03] MEDS: DEXAMETHASONE SOD PHOS 10 MG/1 ML VIAL IV SCH (08:56)
[2020-03-03] MEDS ORDERED: IOPAMIDOL 370 MG/ML 200 ML INFUS..BTL INJ ONE ×2 (11:36→18:44)
[2020-03-03] MEDS ORDERED: SODIUM CHLORIDE 0.9% 50ML 50 ML ONE (11:36)
--- NOTE | 2020-03-03 13:44 | Progress Note ---
DATE: SUBJECTIVE: The patient feels better. She has less dyspnea. She is down to 2 L. She still complains of some pain with inspiration. PHYSICAL EXAMINATION: VITAL SIGNS: The patient is afebrile and saturation is 98% on 2 L. HEENT: Shows no facial swelling or erythema. LYMPHATIC: Shows no submandibular, cervical, or supraclavicular adenopathy. CARDIAC: Reveals regular rate and rhythm. Normal S1, S2. LUNGS: Auscultation of lungs reveals rhonchorous breath sounds bilaterally. There is no wheezing. ABDOMEN: Soft and nontender. There is no rebound or guarding. EXTREMITIES: Shows no leg edema or calf tenderness. There is no cyanosis or clubbing. SKIN: Shows no rashes. NEUROLOGICAL: Shows no focal abnormalities. LABORATORY DATA: Blood sugars are within normal limits. IMPRESSION: 1. Viral pneumonia and COVID-19 infection. 2. Type 2 diabetes. 3. Hypertension. PLAN: 1. Continue to wean oxygen. 2. Complete remdesivir. 3. Complete antibiotics. 4. Continue to monitor and control blood sugars. 5. Complete dexamethasone. Jet Rachel MD [facility]/MODL /[id number]
--- NOTE | 2020-03-03 14:03 | NUR ---
infectious disease progress note March 03, 2020. Per the patient's exam and discussed with her meds and discussed the medical team the patient is about the same she said she is she came here she is feeling better however she remains easily short of breath if she immobilized. review of systems besides weakness she denies any chills have some cough. Lab he did review chart reviewed. he patient feels better. She has less dyspnea. She is down to 2 L. She still complains of some pain with inspiration. PHYSICAL EXAMINATION: VITAL SIGNS: The patient is afebrile and saturation is 98% on 2 L. HEENT: Shows no facial swelling or erythema. LYMPHATIC: Shows no submandibular, cervical, or supraclavicular adenopathy. CARDIAC: Reveals regular rate and rhythm. Normal S1, S2. LUNGS: Auscultation of lungs reveals rhonchorous breath sounds bilaterally. There is no wheezing. ABDOMEN: Soft and nontender. There is no rebound or guarding. EXTREMITIES: Shows no leg edema or calf tenderness. There is no cyanosis or clubbing. SKIN: Shows no rashes. NEUROLOGICAL: Shows no focal abnormalities. LABORATORY DATA: Blood sugars are within normal limits. IMPRESSION: 1. Viral pneumonia and COVID-19 infection. 2. Type 2 diabetes. 3. Hypertension. I am going to order a CTA to rule out for embolism continue with supportive care as ordered [id number] course of treatment is ordered rmzv 3
[2020-03-03] MEDS: REMDESIVIR 100MG/NS 100ML 100 MG in SODIUM CHLORIDE 0.9% 100 ML 100 ML IV SCH (15:35)
--- NOTE | 2020-03-03 17:34 | Diagnostic Imaging Report ---
EXAM: CT Chest WITH contrast 03/03/2020 11:10 AM INDICATION: Chest pain clinically concerning for pulmonary embolism. COMPARISON: None TECHNIQUE: Chest was scanned utilizing a multidetector helical scanner from the lung apex through the level of the adrenal glands with administration of IV contrast. Coronal and sagittal reformations were obtained. Routine protocol was performed. IV CONTRAST: 100 mL of Omnipaque 300 COMPLICATIONS: None RADIATION DOSE: Total DLP: 429.66 mGy*cm Estimated effective dose: (DLP x 0.014 x size factor) mSv CTDIvol has been reviewed. It is below the limits set by the Radiation Protocol Committee (RPC). Dose modulation, iterative reconstruction, and/or weight based adjustment of the mA/kV was utilized to reduce the radiation dose to as low as reasonably achievable. FINDINGS: LINES/ TUBES: None. Vascular: There are no filling defects within the pulmonary arteries to the segmental level. The pulmonary trunk has normal caliber measuring approximately 2.6 cm. The ascending and descending aorta have normal caliber and enhancement measuring approximately 3.4 cm and 2.2 cm, respectively. LUNGS AND AIRWAYS: Evaluation of the lungs is limited by low lung volumes and respiratory motion artifact. There is a lower lobe predominant multifocal patchy consolidative and groundglass opacities throughout both lungs and bibasilar atelectasis. PLEURA: The pleural spaces are clear. HEART AND MEDIASTINUM: The thyroid gland is normal. No mediastinal, hilar or axillary lymphadenopathy. The heart is normal in size. No right heart strain. There is no pericardial effusion. UPPER ABDOMEN: The liver is diffusely hypodense compatible with hepatic steatosis patient is status post cholecystectomy. The upper abdomen is otherwise unremarkable. BONES: There are degenerative changes in the thoracic spine. No suspicious osteolytic or osteoblastic lesions. SOFT TISSUES: Unremarkable. IMPRESSION: 1. No evidence of pulmonary embolism to the segmental level. 2. Lower lobe predominant patchy consolidative and groundglass opacities throughout both lungs which may represent aspiration and/or multifocal pneumonia in the proper clinical setting. 3. Hepatic steatosis. Signed by: Nathaniel Balderas MD on 03/03/2020 5:30 PM
[2020-03-03] MEDS ORDERED: SODIUM CHLORIDE 0.9% 50ML 100 ML ONE (18:44)
[2020-03-03] MEDS: AZITHROMYCIN 500MG/NS 250 ML 250 ML IV SCH (22:18)
[2020-03-03] MEDS: CEFTRIAXONE SOD 1 GM/NS 50 ML 50 ML IV SCH (23:40)
[2020-03-03] MEDS: ZOLPIDEM TARTRATE 5 MG TAB PO PRN (23:42)
[2020-03-04] MEDS: ACETAMINOPHEN 325 MG TAB PO PRN (00:10)
--- NOTE | 2020-03-04 01:00 | NUR ---
Pt is resting now.stable condition.
[2020-03-04 05:16] VITALS: BP 127/99
--- NOTE | 2020-03-04 06:55 | NUR ---
BEDSIDE SBAR REPORT RECEIVED FROM CHAGO JAMES, PM SHIFT. PT RECEIVED RESTING IN BED IN NO ACUTE DISTRESS. HOB ELEVATED 30 DEGREES. PT IS ABLE TO MAKE NEEDS KNOWN AND STATES NO NEEDS. CALL LIGHT AND BELONGINGS PLACED NEARBY. PT EDUCATED ON FALL RISK PRECAUTIONS. PT VERBALIZED UNDERSTANDING. WILL CONTINUE TO MONITOR.
[2020-03-04] MEDS: INSULIN LISPRO 100 UNIT/1 ML 3ML VIAL SQ SCH ×9 (07:30→21:21)
[2020-03-04 07:44] VITALS: BP 122/80
[2020-03-04] MEDS: METFORMIN HCL 500 MG TAB CR PO SCH ×2 (08:37→16:02)
[2020-03-04] MEDS: DEXAMETHASONE SOD PHOS 10 MG/1 ML VIAL IV SCH (08:37)
[2020-03-04] MEDS: LISINOPRIL 20 MG TAB PO SCH (08:38)
[2020-03-04] MEDS: ENOXAPARIN SOD INJ 40 MG/0.4 ML SYR SC SCH ×2 (08:58→21:21)
[2020-03-04] MEDS: INSULIN GLARGINE 100 UNITS/ML VIAL SQ SCH ×2 (09:00→21:22)
[2020-03-04 11:40] VITALS: BP 154/81
[2020-03-04] MEDS: REMDESIVIR 100MG/NS 100ML 100 MG in SODIUM CHLORIDE 0.9% 100 ML 100 ML IV SCH (14:00)
--- NOTE | 2020-03-04 14:03 | NUR ---
infectious disease progress note the patient is doing well overall and has no new complaints she still on oxygen she needed if she mobilized [id number] her review of systems otherwise unremarkable laboratory to review chart reviewed. Lab he did review chart reviewed. he patient feels better. She has less dyspnea. She is down to 2 L. She still complains of some pain with inspiration. PHYSICAL EXAMINATION: VITAL SIGNS: The patient is afebrile and saturation is 98% on 2 L. HEENT: Shows no facial swelling or erythema. LYMPHATIC: Shows no submandibular, cervical, or supraclavicular adenopathy. CARDIAC: Reveals regular rate and rhythm. Normal S1, S2. LUNGS: Auscultation of lungs reveals rhonchorous breath sounds bilaterally. There is no wheezing. ABDOMEN: Soft and nontender. There is no rebound or guarding. EXTREMITIES: Shows no leg edema or calf tenderness. There is no cyanosis or clubbing. SKIN: Shows no rashes. NEUROLOGICAL: Shows no focal abnormalities. LABORATORY DATA: Blood sugars are within normal limits. IMPRESSION: 1. Viral pneumonia and COVID-19 infection. 2. Type 2 diabetes. 3. Hypertension. the proposed bacterial pneumonia slowly getting better continue antibiotic continue supportive care as ordered CTA does not show reveal she has pulmonary embolism
[2020-03-04 15:41] VITALS: BP 126/70
[2020-03-04] MEDS ORDERED: ONDANSETRON HCL INJ 2MG/ML 2ML 2 MG/ML VIAL ONE (19:44)
[2020-03-04 20:00] VITALS: BP 138/87
[2020-03-04 20:08] LABS: BASOPHILS % 0.1 % (0.0-1.0); HEMATOCRIT 41.1 % (34.2-44.1); HEMOGLOBIN 13.9 g/dL (12.0-16.0); LYMPHOCYTES # (AUTO) 1.3 (1.0-3.2); LYMPHOCYTES % 16.8 % (18.0-39.1); MEAN CORPUSCULAR HEMOGLOBIN 29.7 pg (28-32); MEAN CORPUSCULAR HGB CONC 33.8 g/dL (31-35); MEAN CORPUSCULAR VOLUME 87.8 fL (81-99); MONOCYTES # (AUTO) 0.3 (0.2-0.8); MONOCYTES % 4.5 % (4.4-11.3); NEUTROPHILS # (AUTO) 5.9 (2.1-6.9); NEUTROPHILS % 78.2 % (38.7-80.0); PLATELET COUNT 271 x10e3/uL (140-360); RED BLOOD COUNT 4.68 x10e6/uL (3.6-5.1); RED CELL DISTRIBUTION WIDTH 12.6 % (11.7-14.4)
[2020-03-04] MEDS ORDERED: MORPHINE SULFATE INJ 4 MG/ML INJ 1ML IV ONE (20:15)
[2020-03-04] MEDS ORDERED: ONDANSETRON HCL INJ 2MG/ML 2ML 2 MG/ML VIAL IV ONE (20:15)
[2020-03-04] MEDS ORDERED: KETOROLAC TROMETHAMINE 30 MG/ML VIAL IV ONE (20:15)
--- NOTE | 2020-03-04 20:21 | Progress Note ---
DATE: Pulmonary Critical Care Progress Note SUBJECTIVE: I was called by the nursing staff about 7:30 p.m. because of chest discomfort. The patient reports some pressure in her chest. It also hurts with palpation and when she pushes on it. She notes some increased dyspnea. PHYSICAL EXAMINATION: VITAL SIGNS: The patient is afebrile. The blood pressure is 126/70, saturation is 97% on 2 L. Pulse is 80. HEENT: Shows no facial swelling or erythema. LYMPHATIC: Shows no submandibular, cervical or supraclavicular adenopathy. CARDIAC: Reveals a regular rate and rhythm with normal S1 and S2. LUNGS: Auscultation of lungs reveals rhonchorous breath sounds bilaterally. There is no wheezing. ABDOMEN: Soft and nontender. There is no rebound or guarding. EXTREMITIES: Shows no leg edema or calf tenderness. There is no cyanosis or clubbing. IMPRESSION: 1. Anterior chest pain. 2. Viral pneumonia and COVID-19 infection. 3. Diabetes. 4. Hypertension. PLAN: 1. Stat EKG and serial troponin I. 2. Stat portable chest x-ray. 3. Morphine x1. 4. Cardiology consultation. 5. Complete remdesivir and antibiotics. 6. Complete dexamethasone. MD BESS Ashofrd/JIGAR /[id number]
--- NOTE | 2020-03-04 20:24 | Diagnostic Imaging Report ---
EXAMINATION: CHEST SINGLE (PORTABLE) INDICATION: Chest pain and pneumonia COMPARISON: Chest x-ray on 02/29/2020. Chest CT on 03/03/2020. FINDINGS: TUBES and LINES: None. LUNGS: Low lung volumes with bronchial vascular crowding and prominent interstitial lung markings. There are multifocal patchy airspace opacities throughout both lungs. PLEURA: No pleural effusion or pneumothorax. HEART AND MEDIASTINUM: The cardiomediastinal silhouette is within normal limits. BONES AND SOFT TISSUES: No acute osseous lesion. Soft tissues are unremarkable. UPPER ABDOMEN: No free air under the diaphragm. IMPRESSION: Patchy airspace opacities throughout both lungs are compatible with known multifocal pneumonia. Signed by: Nathaniel Balderas MD on 03/04/2020 8:20 PM
[2020-03-04 20:30] LABS: ALANINE AMINOTRANSFERASE 36 IU/L (0-55); ALBUMIN 3.3 g/dL (3.5-5.0); ALBUMIN/GLOBULIN RATIO 0.8 (0.8-2.0); ALKALINE PHOSPHATASE 96 IU/L (40-150); ANION GAP 21.5 mmol/L (8-16); BLOOD UREA NITROGEN 14 mg/dL (7-26); BUN/CREATININE RATIO 17 (6-25); CALCIUM 10.8 mg/dL (8.4-10.2); CARBON DIOXIDE 17 mmol/L (22-29); CHLORIDE 102 mmol/L (98-107); CREATINE KINASE 13 IU/L (29-168); CREATININE, SERUM 0.82 mg/dL (0.57-1.11); EST GLOMERULAR FILTRATION RATE > 60 ML/MIN (60-); MAGNESIUM 1.7 MG/DL (1.3-2.1); POTASSIUM 4.5 mmol/L (3.5-5.1); SODIUM 136 mmol/L (136-145)
[2020-03-04 20:35] LABS: GLUCOSE 460 mg/dL (74-118)
--- NOTE | 2020-03-04 21:09 | NUR ---
Pt's blood glucose level 467. Sliding scale insulin given of Humalog 26 units. Labs checked and glucose level is currently 460. Dr. Antony paged to inform of elevated blood glucose level. Awaiting call back.
[2020-03-04] MEDS ORDERED: CLOPIDOGREL BISULFATE 75 MG TAB PO ONE (21:10)
[2020-03-04] MEDS: AZITHROMYCIN 500MG/NS 250 ML 250 ML IV SCH (21:21)
--- NOTE | 2020-03-04 22:19 | NUR ---
No call back. Second page placed to Dr. Antony for hyperglycemia.
--- NOTE | 2020-03-04 22:21 | Consultation ---
DATE OF CONSULTATION: Cardiac Consultation REASON FOR CONSULTATION: Chest pain. HISTORY: A 50-year-old lady, who presented to the emergency room on February 29, 2020 with fever, cough, and wheezing. The patient was not doing well for almost 5 to 7 days prior to admission. She went to local pharmacy, she had COVID test which was positive. She continued to be not doing well, having shortness of breath. The patient came to this institution. She was hypoxemic with oxygen saturation in the 80s on 2 L oxygen. Chest x-ray confirmed multifocal bilateral patchy haziness consistent with multifocal pneumonia of COVID. The patient also noted to have CT confirming also diagnosis no evidence of pulmonary embolism. The patient is started on appropriate medication. She was seen by ID and Pulmonary in addition to Medicine. Of note, the patient's hemoglobin A1c on admission is 10.3%, indicating poor control of her diabetes. Regardless, the patient covered with dexamethasone, remdesivir, erythromycin and other medication for the COVID. The patient continued to be doing unwell. She is having pleuritic chest pain. This chest pain progressively worse. Today, she complained of more severe pain. She was seen by Dr. Rachel at 7:30 and I got a consult. I saw the patient around 8:15 or so, and I am dictating now her note. I visited with the patient. Her main problem is severe shortness of breath. In fact, she cannot finish more than one word without stopping to catch her breath despite being on oxygen by nasal cannula. Although her requirement of oxygen is decreased to 3 or 4 L, but she is still fighting for her breath. Her pain is worse with deep breaths, but also she does have component of severe pressure chest pain. She seems to be exhausted. She is trying to breathe. Her pain is better after she took some pain killer. The patient is morbidly obese, on oxygen, in distress. REVIEW OF SYSTEMS: Extensive to all systems, will be summarized for clarity. GENERAL: Fever, chills, failure to thrive. Not feeling well at all. HEENT: Congestion. PULMONARY: Severe shortness of breath and pleuritic chest pain for one week and now the pressure tightness, cough, and wheezes. CARDIAC: Surprisingly, there are no prior history of myocardial infarction or coronary artery disease. The patient having the current pain described above. GI: Poor appetite. Currently unable to eat. She is nauseated and she is very weak. : She is incontinent to urination. MUSCULOSKELETAL: Aches and pain all over. PAST MEDICAL HISTORY: 1. Degenerative joint disease of the back. 2. Extreme obesity with BMI in the 50s. 3. Diabetes mellitus, severe end-organ damage. 4. Hypertensive heart disease. 5. Fatty liver disease. 6. Hyperlipidemia. 7. Smoker, stopped in July 2019. 8. Abdominal hysterectomy. 9. Cholecystectomy. 10. Hand tendon repair. 11. D and C. SOCIAL HISTORY: She is . She quit smoking in July 2019. She is not alcohol drinker. She is unemployed. FAMILY HISTORY: Strongly positive for diabetes mellitus, hypertension, CVA, and her mother of congestive heart failure. ALLERGIES: TO CLINDAMYCIN AND LEVAQUIN. HOME MEDICATIONS: Atorvastatin 20 mg a day, glimepiride 2 mg twice a day, lisinopril 20 mg a day, and metformin 500 mg twice a day. Following admission, the patient is on dexamethasone and Lovenox twice a day. She is on lisinopril. She is on pain medication. She is on ibuprofen. She is on dexamethasone. She is on nebulizer. She is on remdesivir. She is on ceftriaxone and azithromycin. PHYSICAL EXAMINATION: GENERAL: Morbidly obese patient with height of 4 feet 11 inches, weight of 270 pounds. HEENT: Pupils are reactive. NECK: Very short neck. No elevation of jugular venous pulsation. CHEST: Wheezes and the patient is fighting for her breath. CARDIAC: Unable to palpate the apex. Distant heart sound. ABDOMEN: Obese. EXTREMITIES: No cyanosis. No clubbing. No gross signs of deep venous thrombosis. MUSCULOSKELETAL: The patient complained of back pain, but she is able to move her extremity. She is very weak. LABORATORY DATA: Most recent electrolytes are normal. Chest x-ray reviewed and CT scan consistent with pulmonary edema. Hemoglobin A1c at 10.3. White blood cell count of 7.6, hemoglobin of 13.9, hematocrit 42%, and platelet count of 271,000. EKG showing poor R-wave progression anteriorly. Leads 2, 3, AVF. There is ST-segment elevation. There is no prior EKG to compare, but no reciprocal changes. IMPRESSION AND PLAN: 1. COVID-19 infection with bilateral pneumonia and severe shortness of breath. 2. Morbid obesity. 3. Uncontrolled diabetes. 4. Hypertensive heart disease. 5. Very high probability of coronary artery disease. 6. The patient is bed ridden, also probability of pulmonary embolism. For the time being, I would recommend continuation of current medical therapy. We will add antiplatelet agent because they are very high probability for this patient to have coronary artery disease, will do serial enzymes. She needs aggressive care of her COVID infection and watch her for signs of exhaustion and being tired because of her difficulty breathing. Prognosis is guarded. We will follow the patient's progression with you. MD KATINA Mcgee/JIGAR /[id number] MTDD
[2020-03-04] MEDS: CEFTRIAXONE SOD 1 GM/NS 50 ML 50 ML IV SCH (23:36)
[2020-03-05] VITALS (8 sets, daily range): BP systolic 105–137; BP diastolic 73–97
--- NOTE | 2020-03-05 | NUR ---
Pt's blood glucose level rechecked. BG 252. Pt states "I feel much better." Breathing regular and unlabored. No needs at this time. Will continue to monitor.
[2020-03-05] MEDS: CEFTRIAXONE SOD 1 GM/NS 50 ML 50 ML IV SCH (00:45)
[2020-03-05] MEDS: ACETAMINOPHEN 325 MG TAB PO PRN ×3 (01:30→23:00)
[2020-03-05 05:05] LABS: BASOPHILS % 0.3 % (0.0-1.0); EOSINOPHILS % 0.1 % (0.0-6.0); HEMATOCRIT 40.4 % (34.2-44.1); HEMOGLOBIN 13.2 g/dL (12.0-16.0); LYMPHOCYTES % 32.7 % (18.0-39.1); MEAN CORPUSCULAR HGB CONC 32.7 g/dL (31-35); MEAN CORPUSCULAR VOLUME 91.8 fL (81-99); MONOCYTES # (AUTO) 0.6 (0.2-0.8); MONOCYTES % 6.5 % (4.4-11.3); NEUTROPHILS # (AUTO) 5.5 (2.1-6.9); NEUTROPHILS % 59.5 % (38.7-80.0); PLATELET COUNT 238 x10e3/uL (140-360); RED CELL DISTRIBUTION WIDTH 12.5 % (11.7-14.4)
[2020-03-05 05:29] LABS: ANION GAP 15.1 mmol/L (8-16); BLOOD UREA NITROGEN 20 mg/dL (7-26); BUN/CREATININE RATIO 30 (6-25); CALCIUM 9.7 mg/dL (8.4-10.2); CARBON DIOXIDE 21 mmol/L (22-29); CHLORIDE 103 mmol/L (98-107); CREATININE, SERUM 0.67 mg/dL (0.57-1.11); EST GLOMERULAR FILTRATION RATE > 60 ML/MIN (60-); GLUCOSE 192 mg/dL (74-118); POTASSIUM 4.1 mmol/L (3.5-5.1); SODIUM 135 mmol/L (136-145)
--- NOTE | 2020-03-05 06:55 | NUR ---
SBAR BEDSIDE REPORT RECEIVED FROM HA JAMES, PM SHIFT. PATIENT FOUND RESTING IN BED IN NO ACUTE DISTRESS. PT IS ABLE TO MAKE NEEDS KNOWN AND DENIES ANY NEEDS. PT WAS EDUCATED ON FALL RISK PRECAUTIONS AND VERBALIZED UNDERSTANDING. CALL LIGHT AND BELONGINGS PLACED NEARBY. WILL CONTINUE TO MONITOR.
[2020-03-05] MEDS: METFORMIN HCL 500 MG TAB CR PO SCH ×2 (07:48→17:29)
[2020-03-05] MEDS: INSULIN LISPRO 100 UNIT/1 ML 3ML VIAL SQ SCH ×7 (07:56→21:57)
[2020-03-05] MEDS: INSULIN GLARGINE 100 UNITS/ML VIAL SQ SCH ×2 (07:57→21:57)
[2020-03-05] MEDS: DEXAMETHASONE SOD PHOS 10 MG/1 ML VIAL IV SCH (07:57)
[2020-03-05] MEDS: ENOXAPARIN SOD INJ 40 MG/0.4 ML SYR SC SCH ×2 (07:57→21:57)
[2020-03-05] MEDS: LISINOPRIL 20 MG TAB PO SCH (07:57)
[2020-03-05] MEDS: CLOPIDOGREL BISULFATE 75 MG TAB PO SCH (07:57)
[2020-03-05] MEDS: REMDESIVIR 100MG/NS 100ML 100 MG in SODIUM CHLORIDE 0.9% 100 ML 100 ML IV SCH (13:53)
--- NOTE | 2020-03-05 16:44 | NUR ---
nfectious disease progress note the patient is doing well overall and has no new complaints she still on oxygen she needed if she mobilized [id number] her review of systems otherwise unremarkable laboratory to review chart reviewed. stiil with sob in exertion discussed with cardiology and pulmonary Lab he did review chart reviewed. he patient feels better. She has less dyspnea. She is down to 2 L. She still complains of some pain with inspiration. PHYSICAL EXAMINATION: VITAL SIGNS: The patient is afebrile and saturation is 98% on 2 L. HEENT: Shows no facial swelling or erythema. LYMPHATIC: Shows no submandibular, cervical, or supraclavicular adenopathy. CARDIAC: Reveals regular rate and rhythm. Normal S1, S2. LUNGS: Auscultation of lungs reveals rhonchorous breath sounds bilaterally. There is no wheezing. ABDOMEN: Soft and nontender. There is no rebound or guarding. EXTREMITIES: Shows no leg edema or calf tenderness. There is no cyanosis or clubbing. SKIN: Shows no rashes. NEUROLOGICAL: Shows no focal abnormalities. LABORATORY DATA: Blood sugars are within normal limits. IMPRESSION: 1. Viral pneumonia and COVID-19 infection. 2. Type 2 diabetes. 3. Hypertension. CAD to finish abx check BNP
--- NOTE | 2020-03-05 19:20 | NUR ---
Patient visited in room during nursing rounds. Patient alert and oriented x3. Ambulatory with 1 person assist prn. Purewick in place. Patient c/o frequent headaches and will be medicated accordingly. On scheduled IV antibiotics. On negative pressure room since currently tested positive on COVID 19. Call lopez within reach. Will monitor pt closely.
[2020-03-05] MEDS: IBUPROFEN 600 MG TAB PO PRN (19:58)
[2020-03-05] MEDS ORDERED: SODIUM CHLORIDE 0.9% 250ML 250 ML ONE (21:50)
[2020-03-05] MEDS: AZITHROMYCIN 500MG/NS 250 ML 250 ML IV SCH (22:00)
[2020-03-06 00:07] VITALS: BP 134/93
[2020-03-06 04:00] VITALS: BP 129/79
[2020-03-06 06:08] LABS: BASOPHILS % 0.3 % (0.0-1.0); EOSINOPHILS # (AUTO) 0.1 (0.0-0.4); EOSINOPHILS % 0.6 % (0.0-6.0); HEMATOCRIT 40.6 % (34.2-44.1); HEMOGLOBIN 13.5 g/dL (12.0-16.0); LYMPHOCYTES # (AUTO) 4.3 (1.0-3.2); LYMPHOCYTES % 42.8 % (18.0-39.1); MEAN CORPUSCULAR HEMOGLOBIN 29.5 pg (28-32); MEAN CORPUSCULAR HGB CONC 33.3 g/dL (31-35); MEAN CORPUSCULAR VOLUME 88.6 fL (81-99); MONOCYTES # (AUTO) 0.6 (0.2-0.8); MONOCYTES % 5.6 % (4.4-11.3); PLATELET COUNT 262 x10e3/uL (140-360); RED BLOOD COUNT 4.58 x10e6/uL (3.6-5.1); RED CELL DISTRIBUTION WIDTH 12.4 % (11.7-14.4)
[2020-03-06 06:24] LABS: ANION GAP 15.7 mmol/L (8-16); BLOOD UREA NITROGEN 14 mg/dL (7-26); BUN/CREATININE RATIO 24 (6-25); CALCIUM 9.5 mg/dL (8.4-10.2); CARBON DIOXIDE 22 mmol/L (22-29); CHLORIDE 106 mmol/L (98-107); CREATININE, SERUM 0.59 mg/dL (0.57-1.11); EST GLOMERULAR FILTRATION RATE > 60 ML/MIN (60-); GLUCOSE 75 mg/dL (74-118); POTASSIUM 3.7 mmol/L (3.5-5.1); SODIUM 140 mmol/L (136-145)
[2020-03-06] MEDS: ACETAMINOPHEN 325 MG TAB PO PRN (07:25)
[2020-03-06] MEDS: INSULIN LISPRO 100 UNIT/1 ML 3ML VIAL SQ SCH ×5 (07:30→16:30)
--- NOTE | 2020-03-06 07:30 | NUR ---
PATIENT SITTING UP IN BED TALKING ON THE PHONE, NO DISTRESS NOTED. C/O HEADACHE AND WAS MEDICATED ORDERED. WILL CONTINUE TO MONITOR. CALL LIGHT AT REACH.
[2020-03-06 07:40] VITALS: BP 138/90
[2020-03-06 08:11] VITALS: BP 138/90
[2020-03-06] MEDS: METFORMIN HCL 500 MG TAB CR PO SCH ×2 (08:30→17:33)
[2020-03-06] MEDS: INSULIN GLARGINE 100 UNITS/ML VIAL SQ SCH (09:00)
[2020-03-06] MEDS: CLOPIDOGREL BISULFATE 75 MG TAB PO SCH (09:33)
[2020-03-06] MEDS: ENOXAPARIN SOD INJ 40 MG/0.4 ML SYR SC SCH (09:34)
[2020-03-06] MEDS: LISINOPRIL 20 MG TAB PO SCH (09:34)
[2020-03-06] MEDS: DEXAMETHASONE SOD PHOS 10 MG/1 ML VIAL IV SCH (10:00)
--- NOTE | 2020-03-06 11:18 | NUR ---
PATIENT IV INFILTRATED, REMOVED WITH TIP INTACT. NEW IV 22 GAUGE INSERTED TO RIGHT FOREARM. PATIENT TOLERATED PROCEDURE WELL. CALL LIGHT AT REACH.
[2020-03-06 12:04] VITALS: BP 133/84
--- NOTE | 2020-03-06 14:47 | NUR ---
HOME O2 EVALUATION DONE. PATIENT O2 AT REST WAS 91%, WITH AMBULATION O2 SAT IS 86%. PATIENT QUALIFIED FOR HOME O2. CASE MANAGEMENT NOTIFIED.
--- NOTE | 2020-03-06 15:03 | NUR ---
HOME 02 EVJORDYN SATS ON ROOM AIR WITH EXERTION 86% CHOICE LETTER SIGNED FOR [facility] PH: [phone] FAX: [phone] SPOKE WITH SHAWNA AT [facility] AND FAXED CLINICALS WITH ORDER CONFIRMATION REC'D COPY OF CHOICE LETTER TO PT CONFIRMED ADDRESS AND PHONE NUMBER WITH PT PROVIDED PT PORTABLE TANK WITH CONSERVING DEVICE ATTATCHED PT INSTRUCTED TO CALL [facility] AT ABOVE NUMBER WHEN SHE GETS HOME TO HAVE CONCENTRATOR DELIVERED DISCHARGED HOME TODAY
--- NOTE | 2020-03-06 15:21 | NUR ---
Nutrition Screen Note RD Recommendation for Physician: -Continue current diet as ordered -If PO intake is <50% of meals, offer a Glucerna nutrition Plan of Care: RD following, monitoring for tolerance and adequacy Nutrition reason for involvement: length of stay Primary Diagnose(s): COVID-19, bilateral pneumonia PMH: Lumbar disk disease, , Type diabetes with neuropathy, Hypertensive heat disease, Fatty liver disease, Hyperlipidemia, Tobacco abuse (quit July 2019). Ht: 59 in Wt: 169.44 lb BMI: 34.2 kg/m2 IBW:[address] Assessment: (03/06/20) Chart reviewed. Labs and meds reviewed. Pt is a 50 year old female admitted with COVID-19 and bilateral pneumonia. Unable to enter room due to isolation precautions for COVID-19. It is documented that pt has been consuming 50-100% of meals. No reports of recent unintentional weight loss or decreased appetite per chart. Pt has various weights in chart (260 lbs on 03/01, and 169 lbs on 03/06 suspect weight error) Will continue to monitor Current Diet: 1800 ADA Malnutrition Evaluation (03/06/20) The patient does not meet criteria for a specified degree of malnutrition at this time. Will re-evaluate at follow-up as appropriate. Diet Education Needs Assessment: RD is available for diet education as needed Nutrition Care Level: low Signed: Hyacinth Plasencia RD, LD
[2020-03-06 15:34] VITALS: BP 151/96
--- NOTE | 2020-03-06 17:55 | NUR ---
PATIENT HOME O2 DELIVERED. DR LAINEZ IN TO SEE PATIENT, HE IS OKAY TO DISCHARGE PATIENT.
[2020-03-06] MEDS ORDERED: ALBUTEROL0.63 MG/3 INH (18:07)
--- NOTE | 2020-03-06 18:45 | NUR ---
PATIENT DISCHARGED HOME. DISCHARGE INSTRUCTIONS, PRESCRIPTION, AND FOLLOW UP GIVEN TO PATIENT, SHE VERBALIZED UNDERSTANDING. IV TO RIGHT FOREARM REMOVED WITH TIP INTACT. O2 TANK AND ALL PERSONAL ITEMS TAKEN WITH PATIENT. LEFT UNIT PER WHEEL CHAIR TO FRONT LOBBY IN STABLE CONDITION.
[2020-03-06] MEDS ORDERED: ATORVASTATIN 20 MG TAB PO SCH (21:00)
== END 2020-03-06 18:37 | disposition home or self-care (01) | DRG 177 ==
LOC: FSED 21:15 → ERHOLD 23:35 → MED/SURG3 03-01 01:18
PROC: XW033E5 Introduction of Remdesivir Anti-infective into Peripheral Vein, Percutaneous Approach, New Technology Group 5 (ICD-10-PCS; principal; 2020-03-01)
DX: U07.1 COVID-19 (principal); J12.89 Other viral pneumonia; J15.9 Unspecified bacterial pneumonia; J96.01 Acute respiratory failure with hypoxia; Z68.43 Body mass index [BMI] 50.0-59.9, adult; E78.5 Hyperlipidemia, unspecified; Z09 Encounter for follow-up examination after completed treatment for conditions other than malignant neoplasm; Z86.73 Personal history of transient ischemic attack (TIA), and cerebral infarction without residual deficits; Z90.49 Acquired absence of other specified parts of digestive tract; Z88.1 Allergy status to other antibiotic agents; E66.01 Morbid (severe) obesity due to excess calories; I11.9 Hypertensive heart disease without heart failure; Z83.3 Family history of diabetes mellitus; Z82.49 Family history of ischemic heart disease and other diseases of the circulatory system; Z82.3 Family history of stroke; E11.42 Type 2 diabetes mellitus with diabetic polyneuropathy; Z87.891 Personal history of nicotine dependence; I25.10 Atherosclerotic heart disease of native coronary artery without angina pectoris; R07.81 Pleurodynia; Z79.84 Long term (current) use of oral hypoglycemic drugs
CPT/HCPCS: 36415; 71045; 71260; 80048; 80053; 81001; 82550; 82553; 82948; 83036; 83735; 83880; 84484; 85025; 86592; 87040; 87071; 87086; 87205; 87390; 87491; 87591; 93005; 93306; 96372; 99284; G0433; G0435; J0456; J0696; J1100; J1650; J1815; J1817; J1885; J2405; J2930; J7030; J7050; Q9967; U0002

== ENCOUNTER → 2020-05-04 | Day surgery (SDC) | payer OTHER ==
[~2020-05-04] MED LIST changes: +ALBUTEROL0.63 MG/3 INH; +BACLOFEN10 MG PO; +CARBAMAZEPINE200 MG PO; +FENTANYL CITRATE/PF 100MCG/2 ML INJ ONE; +INSULIN REGULAR, HUMAN 100 UNIT/1 ML 3ML VIAL ONE; +MIDAZOLAM HCL 2 MG/2 ML VIAL ONE; +PROPOFOL IV EMULSION 10 MG/ML 20 ML VIAL ONE
[2020-05-04 07:35] VITALS: BP 131/84
--- NOTE | 2020-05-04 09:13 | Operative Report ---
DATE OF PROCEDURE: 05/04/2020 SURGEON: Adan Weinstein MD PREOPERATIVE DIAGNOSIS: Chronic gastroesophageal reflux disease. POSTOPERATIVE DIAGNOSES: 1. Hiatal hernia. 2. Distal esophagitis. 3. Chronic gastroesophageal reflux disease. PREOPERATIVE INDICATION: Assess for upper GI disease. PROCEDURES: EGD with distal esophageal biopsy (CPT 58737). ANESTHESIA: Moderate sedation with IV propofol. ASSISTANTS: None. FLUIDS: As per anesthesia. ESTIMATED BLOOD LOSS: Minimal. DRAINS: None. COMPLICATIONS: None. SPECIMENS: Distal esophageal biopsy x2. GRAFTS: None. FINDINGS: 1. Hiatal hernia. 2. Distal esophagitis. PROCEDURE IN DETAIL: The patient was brought to the endoscopy suite, and was sedated with IV propofol. A preprocedure pause was performed. An adult-sized endoscope was introduced to the oropharynx and guided to the 2nd portion of the duodenum. Findings were noted as above. Prior to removing the endoscope, the stomach was desufflated. The patient tolerated the procedure well. Type of wound is type 1, clean. Adan Weinstein MD [facility] /[id number]
== END | disposition home or self-care (01) ==
LOC: ENDO 05:28
PROVIDERS: ATTEND Surgery
DX: K21.00 Gastro-esophageal reflux disease with esophagitis, without bleeding (principal); K22.8 Other specified diseases of esophagus; K44.9 Diaphragmatic hernia without obstruction or gangrene; I10 Essential (primary) hypertension; E11.9 Type 2 diabetes mellitus without complications; E78.5 Hyperlipidemia, unspecified; E66.01 Morbid (severe) obesity due to excess calories; Z01.810 Encounter for preprocedural cardiovascular examination; Z68.43 Body mass index [BMI] 50.0-59.9, adult; Z86.73 Personal history of transient ischemic attack (TIA), and cerebral infarction without residual deficits
CPT/HCPCS: 43239; 88305; 93005; J2250; J2704; J3010; J1817

== ENCOUNTER 2020-11-29 22:22 | Emergency (ER) | payer OTHER ==
[~2020-11-29] VITALS: Ht 149.9 cm; Wt 88.9 kg
[~2020-11-29 22:22] MED LIST changes: -FENTANYL CITRATE/PF 100MCG/2 ML INJ ONE; -INSULIN REGULAR, HUMAN 100 UNIT/1 ML 3ML VIAL ONE; -MIDAZOLAM HCL 2 MG/2 ML VIAL ONE; -PROPOFOL IV EMULSION 10 MG/ML 20 ML VIAL ONE
[2020-11-29 22:46] LABS: BASOPHILS % 0.4 % (0.0-1.0); EOSINOPHILS # (AUTO) 0.2 (0.0-0.4); EOSINOPHILS % 2.2 % (0.0-6.0); HEMATOCRIT 42.2 % (34.2-44.1); HEMOGLOBIN 14.6 g/dL (12.0-16.0); LYMPHOCYTES # (AUTO) 3.1 (1.0-3.2); LYMPHOCYTES % 33.2 % (18.0-39.1); MEAN CORPUSCULAR HEMOGLOBIN 30.3 pg (28-32); MEAN CORPUSCULAR HGB CONC 34.6 g/dL (31-35); MEAN CORPUSCULAR VOLUME 87.6 fL (81-99); MONOCYTES # (AUTO) 0.6 (0.2-0.8); MONOCYTES % 6.2 % (4.4-11.3); NEUTROPHILS # (AUTO) 5.3 (2.1-6.9); NEUTROPHILS % 57.6 % (38.7-80.0); PLATELET COUNT 287 x10e3/uL (140-360); RED BLOOD COUNT 4.82 x10e6/uL (3.6-5.1); RED CELL DISTRIBUTION WIDTH 12.3 % (11.7-14.4)
[2020-11-29] MEDS ORDERED: ONDANSETRON HCL INJ 2MG/ML 2ML 2 MG/ML VIAL IV STA (22:52)
[2020-11-29] MEDS ORDERED: SODIUM CHLORIDE 0.9% 1000ML 1,000 ML IV ONE (23:00)
[2020-11-29] MEDS ORDERED: ONDANSETRON HCL INJ 2MG/ML 2ML 2 MG/ML VIAL ONE (23:03)
[2020-11-29 23:05] LABS: ALANINE AMINOTRANSFERASE 24 IU/L (0-55); ALBUMIN 3.7 g/dL (3.5-5.0); ALBUMIN/GLOBULIN RATIO 0.9 (0.8-2.0); ALKALINE PHOSPHATASE 149 IU/L (40-150); ANION GAP 17.2 mmol/L (8-16); BLOOD UREA NITROGEN 10 mg/dL (7-26); BUN/CREATININE RATIO 12 (6-25); CALCIUM 10.5 mg/dL (8.4-10.2); CARBON DIOXIDE 24 mmol/L (22-29); CHLORIDE 101 mmol/L (98-107); CREATININE, SERUM 0.81 mg/dL (0.57-1.11); EST GLOMERULAR FILTRATION RATE > 60 ML/MIN (60-); POTASSIUM 4.2 mmol/L (3.5-5.1); SODIUM 138 mmol/L (136-145)
[2020-11-29] MEDS ORDERED: MORPHINE SULFATE INJ 4 MG/ML INJ 1ML ONE (23:07)
[2020-11-29] MEDS ORDERED: KETOROLAC TROMETHAMINE 30 MG/ML VIAL IV STA (23:11)
[2020-11-29 23:14] LABS: CLARITY,URINE CLOUDY (CLEAR); COLOR,URINE YELLOW (YELLOW); KETONES,URINE NEGATIVE (NEGATIVE); LEUKOCYTE ESTERASE ,URINE NEGATIVE (NEGATIVE); NITRITE,URINE NEGATIVE (NEGATIVE); PROTEIN,URINE DIPSTICK 2+ (NEGATIVE); URINE UROBILINOGEN 1 mg/dL (0.2 - 1)
[2020-11-29] MEDS ORDERED: KETOROLAC TROMETHAMINE 30 MG/ML VIAL ONE (23:14)
[2020-11-29 23:15] LABS: BACTERIA,URINE MODERATE /HPF; EPITHELIAL CELLS,URINE FEW /LPF; WBC,URINE (MAN) >50 /HPF (0-5)
[2020-11-29] MEDS ORDERED: MORPHINE SULFATE INJ 4 MG/ML INJ 1ML IV ONE (23:15)
[2020-11-29 23:16] LABS: GLUCOSE 412 mg/dL (74-118)
[2020-11-29] MEDS ORDERED: INSULIN REGULAR, HUMAN 100 UNIT/1 ML 3ML VIAL IV ONE (23:30)
[2020-11-29] MEDS ORDERED: INSULIN REGULAR, HUMAN 100 UNIT/1 ML 3ML VIAL ONE (23:40)
[2020-11-30] MEDS ORDERED: BACTRIM DS TAB1 EACH PO (00:13)
[2020-11-30] MEDS ORDERED: ZOFRAN4 MG SL ×2 (00:19→00:26)
== END 2020-11-30 02:00 | disposition home or self-care (01) ==
LOC: ER 22:54
DX: R10.30 Lower abdominal pain, unspecified (principal); N12 Tubulo-interstitial nephritis, not specified as acute or chronic; E11.65 Type 2 diabetes mellitus with hyperglycemia; I10 Essential (primary) hypertension; E78.5 Hyperlipidemia, unspecified; Z86.73 Personal history of transient ischemic attack (TIA), and cerebral infarction without residual deficits
CPT/HCPCS: 36415; 74176; 80053; 81001; 81025; 82948; 83690; 85025; 93005; 99284; J1817; J1885; J2270; J2405; J7030

== ENCOUNTER 2021-05-10 09:06 | Emergency (ER) | payer OTHER ==
[~2021-05-10] VITALS: Ht 149.9 cm; Wt 88.9 kg
[~2021-05-10 09:06] MED LIST changes: +BACTRIM DS TAB1 EACH PO; +ZOFRAN4 MG SL
[2021-05-10 09:54] LABS: BASOPHILS % 0.4 % (0.0-1.0); EOSINOPHILS # (AUTO) 0.2 (0.0-0.4); EOSINOPHILS % 2.5 % (0.0-6.0); HEMATOCRIT 41.4 % (34.2-44.1); HEMOGLOBIN 13.8 g/dL (12.0-16.0); LYMPHOCYTES # (AUTO) 2.3 (1.0-3.2); LYMPHOCYTES % 30.9 % (18.0-39.1); MEAN CORPUSCULAR HEMOGLOBIN 30.1 pg (28-32); MEAN CORPUSCULAR HGB CONC 33.3 g/dL (31-35); MEAN CORPUSCULAR VOLUME 90.4 fL (81-99); MONOCYTES # (AUTO) 0.5 (0.2-0.8); MONOCYTES % 6.4 % (4.4-11.3); NEUTROPHILS # (AUTO) 4.3 (2.1-6.9); NEUTROPHILS % 59.5 % (38.7-80.0); PLATELET COUNT 280 x10e3/uL (140-360); RED BLOOD COUNT 4.58 x10e6/uL (3.6-5.1); RED CELL DISTRIBUTION WIDTH 13.2 % (11.7-14.4)
[2021-05-10 10:29] LABS: ALBUMIN 3.5 g/dL (3.5-5.0); ALBUMIN/GLOBULIN RATIO 0.9 (0.8-2.0); ANION GAP 14.3 mmol/L (8-16); CALCIUM 9.5 mg/dL (8.4-10.2); CREATININE, SERUM 0.86 mg/dL (0.57-1.11); POTASSIUM 4.3 mmol/L (3.5-5.1)
[2021-05-10 10:37] LABS: INR 0.97; PROTHROMBIN TIME 13.7 seconds (11.9-14.5)
[2021-05-10] MEDS ORDERED: INSULIN REGULAR, HUMAN 100 UNIT/1 ML SQ ONE (10:45)
[2021-05-10 11:10] LABS: CLARITY,URINE CLOUDY (CLEAR); COLOR,URINE YELLOW (YELLOW); KETONES,URINE NEGATIVE (NEGATIVE); LEUKOCYTE ESTERASE ,URINE TRACE (NEGATIVE); NITRITE,URINE POSITIVE (NEGATIVE); PROTEIN,URINE DIPSTICK NEGATIVE (NEGATIVE); URINE UROBILINOGEN 0.2 mg/dL (0.2 - 1)
[2021-05-10 11:31] LABS: BACTERIA,URINE MANY /HPF; EPITHELIAL CELLS,URINE MODERATE /LPF
[2021-05-10 13:26] VITALS: BP 134/82
== END 2021-05-10 13:29 | disposition other institution (70) ==
LOC: ER 09:20
DX: G45.9 Transient cerebral ischemic attack, unspecified (principal); E11.65 Type 2 diabetes mellitus with hyperglycemia; E78.5 Hyperlipidemia, unspecified; Z20.822 Contact with and (suspected) exposure to COVID-19
CPT/HCPCS: 36415; 70450; 80053; 81001; 82948; 84702; 85025; 85610; 93005; 99284; J1817; U0002

== ENCOUNTER 2022-08-05 11:54 | Emergency (ER) | payer BC ==
[~2022-08-05] VITALS: Ht 149.9 cm; Wt 88.9 kg
[~2022-08-05 11:54] MED LIST changes: +LEVOTHYROXINE50 MCG PO; +MUCINEX DM ER1 EACH PO; +RYBELSUS3 MG
[2022-08-05 12:39] LABS: BASOPHILS % 0.5 % (0.0-1.0); EOSINOPHILS # (AUTO) 0.2 (0.0-0.4); EOSINOPHILS % 4.2 % (0.0-6.0); HEMATOCRIT 37.7 % (34.2-44.1); HEMOGLOBIN 12.1 g/dL (12.0-16.0); LYMPHOCYTES # (AUTO) 2.1 (1.0-3.2); LYMPHOCYTES % 36.7 % (18.0-39.1); MEAN CORPUSCULAR HEMOGLOBIN 30.9 pg (28-32); MEAN CORPUSCULAR HGB CONC 32.1 g/dL (31-35); MEAN CORPUSCULAR VOLUME 96.2 fL (81-99); MONOCYTES # (AUTO) 0.4 (0.2-0.8); MONOCYTES % 7.5 % (4.4-11.3); NEUTROPHILS # (AUTO) 2.9 (2.1-6.9); NEUTROPHILS % 50.9 % (38.7-80.0); PLATELET COUNT 228 x10e3/uL (140-360); RED BLOOD COUNT 3.92 x10e6/uL (3.6-5.1); RED CELL DISTRIBUTION WIDTH 14.8 % (11.7-14.4)
[2022-08-05 12:47] LABS: ANION GAP 12.3 mmol/L (8-16); CALCIUM 9.1 mg/dL (8.4-10.2); CREATININE, SERUM 0.66 mg/dL (0.57-1.11); POTASSIUM 3.3 mmol/L (3.5-5.1)
[2022-08-05 14:09] VITALS: BP 159/76
== END 2022-08-05 13:43 | disposition home or self-care (01) ==
LOC: ER 11:59
DX: M79.89 Other specified soft tissue disorders (principal); R10.32 Left lower quadrant pain; I10 Essential (primary) hypertension; E11.65 Type 2 diabetes mellitus with hyperglycemia; E78.5 Hyperlipidemia, unspecified; R94.31 Abnormal electrocardiogram [ECG] [EKG]; Z86.73 Personal history of transient ischemic attack (TIA), and cerebral infarction without residual deficits; Z98.84 Bariatric surgery status
CPT/HCPCS: 36415; 80048; 83880; 85025; 93005; 93970; 99284

== ENCOUNTER → 2022-11-25 | Outpatient (CLI) | payer BC | LOC: RAD 07:54 | PROVIDERS: ATTEND Internal Medicine | DX: M54.50 Low back pain, unspecified (principal); M54.6 Pain in thoracic spine | CPT/HCPCS: 72070; 72110 ==

== ENCOUNTER 2024-04-07 23:16 | Inpatient (IN) | payer BC ==
[~2024-04-07] VITALS: Ht 149.9 cm; Wt 96.2 kg
[~2024-04-07 23:16] MED LIST changes: +TAMIFLU75 MG PO
[2024-04-08] MEDS: KETOROLAC TROMETHAMINE 60 MG/2 ML VIAL IM STA (00:04)
[2024-04-08] MEDS: DONNATAL/LIDOCAINE/MAALOX 30 ML SUSP PO STA (00:54)
[2024-04-08] MEDS ORDERED: FAMOTIDINE 20 MG/2 ML VIAL IV ONE (01:07)
[2024-04-08] MEDS ORDERED: DIPHENHYDRAMINE HCL INJ 50 MG/ML VIAL ONE (01:07)
[2024-04-08] MEDS: PANTOPRAZOLE SODIUM 20 MG TABLET.DR PO STA (01:29)
[2024-04-08] MEDS: DIPHENHYDRAMINE HCL INJ 50 MG/ML VIAL IV ONE (01:30)
[2024-04-08] MEDS: FAMOTIDINE 20 MG/2 ML VIAL IV STA (01:30)
[2024-04-08] MEDS ORDERED: METOCLOPRAMIDE HCL 10 MG/2ML VIAL ONE (01:50)
[2024-04-08 05:03] LABS: BASOPHILS % 0.5 % (0.0-1.0); EOSINOPHILS # (AUTO) 0.2 (0.0-0.4); EOSINOPHILS % 2.5 % (0.0-6.0); HEMATOCRIT 39.8 % (34.2-44.1); HEMOGLOBIN 13.2 g/dL (12.0-16.0); LYMPHOCYTES # (AUTO) 3.3 (1.0-3.2); LYMPHOCYTES % 39.4 % (18.0-39.1); MEAN CORPUSCULAR HEMOGLOBIN 31.3 pg (28-32); MEAN CORPUSCULAR HGB CONC 33.2 g/dL (31-35); MEAN CORPUSCULAR VOLUME 94.3 fL (81-99); MONOCYTES # (AUTO) 0.5 (0.2-0.8); MONOCYTES % 5.7 % (4.4-11.3); NEUTROPHILS # (AUTO) 4.4 (2.1-6.9); NEUTROPHILS % 51.7 % (38.7-80.0); PLATELET COUNT 248 x10e3/uL (140-360); RED BLOOD COUNT 4.22 x10e6/uL (3.6-5.1); RED CELL DISTRIBUTION WIDTH 12.8 % (11.7-14.4); WHITE BLOOD COUNT 8.43 x10e3/uL (4.8-10.8)
[2024-04-08 05:17] LABS: CLARITY,URINE CLOUDY (CLEAR); COLOR,URINE AMBER (YELLOW); LEUKOCYTE ESTERASE ,URINE 1+ (NEGATIVE); NITRITE,URINE POSITIVE (NEGATIVE); PH,URINE 8.5 (5 - 7)
[2024-04-08 05:18] LABS: AMPHETAMINES SCREEN,URINE NEGATIVE (NEGATIVE); BENZODIAZEPINES SCREEN,URINE NEGATIVE (NEGATIVE); BILIRUBIN,URINE 1+ (NEGATIVE); CANNABINOIDS SCREEN,URINE NEGATIVE (NEGATIVE); GLUCOSE, URINE NEGATIVE (NEGATIVE); KETONES,URINE NEGATIVE (NEGATIVE); METHADONE SCREEN, URINE NEGATIVE (NEGATIVE); OPIATES SCREEN,URINE NEGATIVE (NEGATIVE); PHENCYCLIDINE SCREEN,URINE NEGATIVE (NEGATIVE); PROTEIN,URINE DIPSTICK 2+ (NEGATIVE); URINE UROBILINOGEN 0.2 mg/dL (0.2 - 1)
[2024-04-08 05:22] LABS: TROPONIN I < 0.001 ng/mL (0-0.300)
[2024-04-08 05:23] LABS: ALANINE AMINOTRANSFERASE 58 IU/L (0-55); ALBUMIN 3.9 g/dL (3.5-5.0); ALBUMIN/GLOBULIN RATIO 1.1 (0.8-2.0); ALKALINE PHOSPHATASE 159 IU/L (40-150); ANION GAP 13.9 mmol/L (8-16); BILIRUBIN,TOTAL 0.4 mg/dL (0.2-1.2); BLOOD UREA NITROGEN 14 mg/dL (7-26); BUN/CREATININE RATIO 22 (6-25); CALCIUM 10.2 mg/dL (8.4-10.2); CARBON DIOXIDE 24 mmol/L (22-29); CHLORIDE 109 mmol/L (98-107); CREATINE KINASE 71 IU/L (29-168); CREATININE, SERUM 0.65 mg/dL (0.57-1.11); EST GLOMERULAR FILTRATION RATE 106 ML/MIN (>=60); GLUCOSE 109 mg/dL (74-118); POTASSIUM 3.9 mmol/L (3.5-5.1); SODIUM 143 mmol/L (136-145); TOTAL PROTEIN 7.6 g/dL (6.5-8.1)
[2024-04-08 05:30] LABS: BACTERIA,URINE MANY /HPF; EPITHELIAL CELLS,URINE FEW /LPF; TRIPLE PHOSPHATE CRYSTAL,UR MANY (FEW)
[2024-04-08] MEDS: METOCLOPRAMIDE HCL 10 MG TAB PO STA (06:33)
[2024-04-08] MEDS: SODIUM CHLORIDE 0.9% 1000ML 1,000 ML IV SCH (06:33)
[2024-04-08] MEDS: POLYETHYLENE GLYCOL 3350 17 GM PACK PO SCH (10:57)
[2024-04-08] MEDS: ONDANSETRON HCL INJ 2MG/ML 2ML 2 MG/ML VIAL IV PRN (10:58)
[2024-04-08] MEDS: Morphine 4mg INJECTION 4 MG/ML INJ IV PRN (10:58)
[2024-04-08] MEDS: DONNATAL/LIDOCAINE/MAALOX 30 ML SUSP PO ONE (13:02)
[2024-04-08 18:58] VITALS: PULSE 53; RESP 17; TEMP 98.1
[2024-04-08 19:53] VITALS: BP 129/64; PULSE 53; RESP 18; TEMP 98.3; O2SAT 98
[2024-04-08 20:00] VITALS: BP 129/64; PULSE 53; RESP 18; TEMP 98.3; O2SAT 98
[2024-04-08] MEDS ORDERED: TERBINAFINE HC250 MG PO (20:56)
[2024-04-08 23:50] VITALS: BP 118/62; PULSE 59; RESP 18; TEMP 97.9; O2SAT 99
[2024-04-09] VITALS (7 sets, daily range): BP systolic 124–148; BP diastolic 68–84; PULSE 54–65; RESP 16–18; TEMP 95.7–98.4; O2SAT 94–100
[2024-04-09 06:08] LABS: BASOPHILS % 0.7 % (0.0-1.0); EOSINOPHILS # (AUTO) 0.2 (0.0-0.4); HEMATOCRIT 35.8 % (34.2-44.1); LYMPHOCYTES # (AUTO) 1.9 (1.0-3.2); LYMPHOCYTES % 33.9 % (18.0-39.1); MEAN CORPUSCULAR HEMOGLOBIN 31.5 pg (28-32); MEAN CORPUSCULAR HGB CONC 33.5 g/dL (31-35); MONOCYTES # (AUTO) 0.4 (0.2-0.8); MONOCYTES % 6.8 % (4.4-11.3); NEUTROPHILS # (AUTO) 3.2 (2.1-6.9); NEUTROPHILS % 55.2 % (38.7-80.0); PLATELET COUNT 211 x10e3/uL (140-360); RED BLOOD COUNT 3.81 x10e6/uL (3.6-5.1); RED CELL DISTRIBUTION WIDTH 12.6 % (11.7-14.4)
[2024-04-09 06:49] LABS: ALBUMIN 3.2 g/dL (3.5-5.0); ANION GAP 11.4 mmol/L (8-16); BILIRUBIN,TOTAL 0.6 mg/dL (0.2-1.2); CREATININE, SERUM 0.71 mg/dL (0.57-1.11); POTASSIUM 4.4 mmol/L (3.5-5.1); TOTAL PROTEIN 6.5 g/dL (6.5-8.1)
[2024-04-09] MEDS: ACETAMINOPHEN 325 MG TAB PO PRN (15:30)
[2024-04-09] MEDS: SENNOSIDES 8.6 MG TAB PO SCH (20:36)
[2024-04-09] MEDS: MAGNESIUM HYDROXIDE 30 ML UDC PO ONE (20:36)
[2024-04-10] VITALS: BP 140/84; PULSE 58; RESP 18; TEMP 97.9; O2SAT 100
[2024-04-10 04:00] VITALS: BP 138/60; PULSE 57; RESP 18; TEMP 98.8; O2SAT 100
[2024-04-10 06:15] LABS: ALBUMIN 3.3 g/dL (3.5-5.0); ALBUMIN/GLOBULIN RATIO 1.1 (0.8-2.0); ANION GAP 10.8 mmol/L (8-16); BILIRUBIN,TOTAL 0.5 mg/dL (0.2-1.2); CALCIUM 9.3 mg/dL (8.4-10.2); CREATININE, SERUM 0.73 mg/dL (0.57-1.11); POTASSIUM 3.8 mmol/L (3.5-5.1); TOTAL PROTEIN 6.4 g/dL (6.5-8.1)
[2024-04-10] MEDS ORDERED: BACTRIM DS TAB1 EACH PO (08:19)
[2024-04-10] MEDS: LEVOTHYROXINE SODIUM 50 MCG TAB PO SCH (08:43)
[2024-04-10 09:42] VITALS: BP 144/94; PULSE 52; RESP 16; TEMP 97.8; O2SAT 100
[2024-04-10 10:16] VITALS: BP 143/73; PULSE 52; RESP 16; TEMP 97.8; O2SAT 98
[2024-04-10] MEDS: INFLUENZA VIRUS VAC SPLIT INJ 0.5 ML SYR IM ONE (10:21)
== END 2024-04-10 10:30 | disposition home or self-care (01) | DRG 690 ==
LOC: ER 23:20 → ERHOLD 04-08 05:44 → MED/SURG3 04-08 19:55 → OBSVTOIN 04-09 07:58
PROVIDERS: ADMIT Internal Medicine; ATTEND Internal Medicine
DX: N30.80 Other cystitis without hematuria (principal); E66.01 Morbid (severe) obesity due to excess calories; Z68.41 Body mass index [BMI] 40.0-44.9, adult; R74.01 Elevation of levels of liver transaminase levels; K57.90 Diverticulosis of intestine, part unspecified, without perforation or abscess without bleeding; E11.65 Type 2 diabetes mellitus with hyperglycemia; E11.319 Type 2 diabetes mellitus with unspecified diabetic retinopathy without macular edema; G89.4 Chronic pain syndrome; F32.4 Major depressive disorder, single episode, in partial remission; F41.9 Anxiety disorder, unspecified; E78.5 Hyperlipidemia, unspecified; E03.9 Hypothyroidism, unspecified; I10 Essential (primary) hypertension; Z86.69 Personal history of other diseases of the nervous system and sense organs; Z98.84 Bariatric surgery status; B96.4 Proteus (mirabilis) (morganii) as the cause of diseases classified elsewhere
CPT/HCPCS: 36415; 71045; 74176; 80053; 80307; 81001; 82550; 82948; 83036; 83690; 83880; 84443; 84484; 85025; 87086; 87186; 93005; 99284; G0378; J1200; J1885; J2270; J2405; J2470; J2543; J2765; J7030

== ENCOUNTER 2024-09-09 12:55 | Emergency (ER) | payer BC ==
[~2024-09-09] VITALS: Ht 149.9 cm; Wt 95.3 kg
[~2024-09-09 12:55] MED LIST changes: +TERBINAFINE HC250 MG PO
[2024-09-09] MEDS ORDERED: SODIUM CHLORIDE FLUSH 10 ML SYR IV PRN (13:30)
[2024-09-09] MEDS ORDERED: IOPAMIDOL 370 MG/ML 100 ML INFUS..BTL INJ ONE (13:30)
[2024-09-09] MEDS ORDERED: SODIUM CHLORIDE 0.9% 100 ML ONE (13:30)
[2024-09-09 13:54] LABS: BASOPHILS % 0.4 % (0.0-1.0); EOSINOPHILS # (AUTO) 0.2 (0.0-0.4); EOSINOPHILS % 2.8 % (0.0-6.0); HEMATOCRIT 41.4 % (34.2-44.1); HEMOGLOBIN 14.2 g/dL (12.0-16.0); LYMPHOCYTES # (AUTO) 2.7 (1.0-3.2); MEAN CORPUSCULAR HEMOGLOBIN 30.3 pg (28-32); MEAN CORPUSCULAR HGB CONC 34.3 g/dL (31-35); MEAN CORPUSCULAR VOLUME 88.3 fL (81-99); MONOCYTES # (AUTO) 0.4 (0.2-0.8); MONOCYTES % 5.4 % (4.4-11.3); NEUTROPHILS # (AUTO) 3.8 (2.1-6.9); NEUTROPHILS % 53.1 % (38.7-80.0); PLATELET COUNT 264 x10e3/uL (140-360); RED BLOOD COUNT 4.69 x10e6/uL (3.6-5.1); RED CELL DISTRIBUTION WIDTH 13.3 % (11.7-14.4); WHITE BLOOD COUNT 7.19 x10e3/uL (4.8-10.8)
[2024-09-09 14:08] LABS: INR 0.9; PROTHROMBIN TIME 12.7 seconds (11.9-14.5)
[2024-09-09 14:09] LABS: PARTIAL THROMBOPLASTIN TIME 25.7 seconds (23.8-35.5)
[2024-09-09 14:17] LABS: ALANINE AMINOTRANSFERASE 56 IU/L (0-55); ALBUMIN 3.9 g/dL (3.5-5.0); ALBUMIN/GLOBULIN RATIO 1.1 (0.8-2.0); ALKALINE PHOSPHATASE 137 IU/L (40-150); ANION GAP 14.7 mmol/L (8-16); BILIRUBIN,TOTAL 0.5 mg/dL (0.2-1.2); BLOOD UREA NITROGEN 11 mg/dL (7-26); BUN/CREATININE RATIO 17 (6-25); CALCIUM 10.1 mg/dL (8.4-10.2); CARBON DIOXIDE 25 mmol/L (22-29); CHLORIDE 108 mmol/L (98-107); CREATININE, SERUM 0.66 mg/dL (0.57-1.11); EST GLOMERULAR FILTRATION RATE 105 ML/MIN (>=60); GLUCOSE 106 mg/dL (74-118); POTASSIUM 3.7 mmol/L (3.5-5.1); SODIUM 144 mmol/L (136-145); TOTAL PROTEIN 7.3 g/dL (6.5-8.1)
[2024-09-09] MEDS: LORAZEPAM INJ 2 MG/ML VIAL IV ONE (14:19)
[2024-09-09 14:24] LABS: TROPONIN I 0.002 ng/mL (0-0.300)
[2024-09-09] MEDS ORDERED: ALTEPLASE 50 MG/VIAL (29 MILLION IU) IV ONE ×2 (14:30)
[2024-09-09] MEDS: ALTEPLASE 100 MG/VIAL IV ONE ×2 (14:45→14:55)
[2024-09-09 15:30] VITALS: BP 142/94; PULSE 57; RESP 16
[2024-09-09 15:45] VITALS: PULSE 60; RESP 14; TEMP 98; O2SAT 100
[2024-09-09 16:04] LABS: BILIRUBIN,URINE NEGATIVE (NEGATIVE); CLARITY,URINE CLEAR (CLEAR); COLOR,URINE YELLOW (YELLOW); GLUCOSE, URINE NEGATIVE (NEGATIVE); KETONES,URINE NEGATIVE (NEGATIVE); LEUKOCYTE ESTERASE ,URINE NEGATIVE (NEGATIVE); NITRITE,URINE POSITIVE (NEGATIVE); PH,URINE 7 (5 - 7); PROTEIN,URINE DIPSTICK NEGATIVE (NEGATIVE); URINE UROBILINOGEN 0.2 mg/dL (0.2 - 1)
[2024-09-09 16:07] LABS: BACTERIA,URINE MANY /HPF; EPITHELIAL CELLS,URINE RARE /LPF; RBC,URINE 0-5 /HPF (0-5); WBC,URINE (MAN) 0-5 /HPF (0-5)
== END 2024-09-09 15:58 | disposition other institution (70) ==
LOC: ER 13:21
DX: R20.2 Paresthesia of skin (principal); I63.9 Cerebral infarction, unspecified; E11.9 Type 2 diabetes mellitus without complications; E78.5 Hyperlipidemia, unspecified; R94.31 Abnormal electrocardiogram [ECG] [EKG]; Z98.84 Bariatric surgery status
CPT/HCPCS: 36415; 70496; 70498; 71045; 80053; 81001; 83880; 84484; 84702; 85025; 85610; 85730; 93005; 94760; 99285; J7050; Q9967

== ENCOUNTER 2025-01-01 12:38 | Emergency (ER) | payer BC ==
[~2025-01-01] VITALS: Ht 149.9 cm; Wt 100.7 kg
[~2025-01-01 12:38] MED LIST changes: +ASPIRIN81 MG PO; +FOLIC ACID0.4 MG PO; +GABAPENTIN ER300 MG PO; +JARDIANCE25 MG PO; +LANTUS 3ML100 UNITS/ SC; +LEXAPRO10 MG PO; +MULTI-VITAMIN1 EACH PO; +OZEMPIC0.25 MG/02 PO; +VITAMIN B-121000 MCG PO
[2025-01-01 12:45] VITALS: TEMP 98.1
[2025-01-01] MEDS ORDERED: OZEMPIC1 MG/0.71 (13:05)
[2025-01-01] MEDS ORDERED: LISINOPRIL5 MG PO (13:05)
[2025-01-01] MEDS ORDERED: NITROFURANTOIN100 M1 PO (13:05)
[2025-01-01] MEDS ORDERED: LEVOTHYROXINE75 MCG PO (13:05)
[2025-01-01 13:27] LABS: BASOPHILS % 0.4 % (0.0-1.0); EOSINOPHILS # (AUTO) 0.2 (0.0-0.4); EOSINOPHILS % 1.9 % (0.0-6.0); HEMATOCRIT 38.7 % (34.2-44.1); HEMOGLOBIN 13.2 g/dL (12.0-16.0); LYMPHOCYTES # (AUTO) 1.9 (1.0-3.2); LYMPHOCYTES % 23.7 % (18.0-39.1); MEAN CORPUSCULAR HEMOGLOBIN 31.1 pg (28-32); MEAN CORPUSCULAR HGB CONC 34.1 g/dL (31-35); MEAN CORPUSCULAR VOLUME 91.3 fL (81-99); MONOCYTES # (AUTO) 0.4 (0.2-0.8); MONOCYTES % 5.4 % (4.4-11.3); NEUTROPHILS # (AUTO) 5.5 (2.1-6.9); NEUTROPHILS % 68.5 % (38.7-80.0); PLATELET COUNT 232 x10e3/uL (140-360); RED BLOOD COUNT 4.24 x10e6/uL (3.6-5.1); RED CELL DISTRIBUTION WIDTH 13.1 % (11.7-14.4); WHITE BLOOD COUNT 7.99 x10e3/uL (4.8-10.8)
[2025-01-01 13:44] LABS: INR 0.87; PARTIAL THROMBOPLASTIN TIME 27.2 seconds (23.8-35.5); PROTHROMBIN TIME 12.7 seconds (11.9-14.5)
[2025-01-01 13:54] LABS: ALBUMIN 3.8 g/dL (3.5-5.0); ALBUMIN/GLOBULIN RATIO 1.2 (0.8-2.0); ANION GAP 11.9 mmol/L (8-16); BILIRUBIN,TOTAL 0.7 mg/dL (0.2-1.2); CALCIUM 9.2 mg/dL (8.4-10.2); CREATININE, SERUM 0.64 mg/dL (0.57-1.11); POTASSIUM 3.9 mmol/L (3.5-5.1)
[2025-01-01] MEDS: SODIUM CHLORIDE 0.9% 1000ML 1,000 ML IV STA (14:18)
[2025-01-01 14:30] VITALS: PULSE 61; RESP 18
[2025-01-01] MEDS: MECLIZINE HCL 12.5 MG TAB PO ONE (14:58)
[2025-01-01] MEDS: ONDANSETRON HCL INJ 2MG/ML 2ML 2 MG/ML VIAL IV STA (14:58)
[2025-01-01] MEDS ORDERED: MECLIZINE HCL12.5 MG PO (15:26)
[2025-01-01] MEDS ORDERED: CEFDINIR300 MG PO (15:26)
[2025-01-01 15:34] VITALS: BP 160/88; PULSE 54; RESP 15; O2SAT 99
== END 2025-01-01 15:38 | disposition home or self-care (01) ==
LOC: ER 13:57
DX: R42 Dizziness and giddiness (principal); N39.0 Urinary tract infection, site not specified; I10 Essential (primary) hypertension; E11.9 Type 2 diabetes mellitus without complications; E78.5 Hyperlipidemia, unspecified; E03.9 Hypothyroidism, unspecified; F41.9 Anxiety disorder, unspecified; Z98.84 Bariatric surgery status; I69.354 Hemiplegia and hemiparesis following cerebral infarction affecting left non-dominant side
CPT/HCPCS: 36415; 70496; 70498; 80053; 84484; 85025; 85610; 85730; 93005; 99284; J2405; J7030; J8597